=== PATIENT | female | born 1945 | race Caucasian/White ===

== ENCOUNTER 2017-12-27 12:57 | Inpatient (IN) | payer MEDICARE, MEDICAID ==
[~2017-12-27] VITALS: Ht 167.6 cm; Wt 63.6 kg
[2017-12-27] VITALS (21 sets, daily range): BP systolic 50–124; BP diastolic 41–77; PULSE 69–85; RESP 15–32; TEMP 95.9–99.1; O2SAT 76–98
[~2017-12-27 12:57] MED LIST: ALBU1AER INH; FLON0.053 EACH NARE; LISI-363 PO; MONT10TA2 PO; PRAV20 PO; PROP20TA24 PO; TIZA2TAB PO; TRAM50TA PO; WALKER STANDARD
[2017-12-27] MEDS ORDERED: VANCOMYCIN INJ 1,000 MG in SODIUM CHLOR 0.9% 250 ML INJ 250 ML IV ONE (13:15)
[2017-12-27] MEDS ORDERED: SODIUM CHLOR 0.9% 1000 ML INJ 1,000 ML IV SCH ×2 (13:15)
[2017-12-27] MEDS ORDERED: CEFEPIME INJ 2,000 MG in SODIUM CHLORIDE 0.9% INJ 100 ML IV ONE (13:15)
[2017-12-27 13:43] LABS: AUTOMATED NEUTROPHIL # 13.5 TH/MM3 (1.8-7.7); BASOPHIL % 0.1 % (0.0-2.0); EOSINOPHIL # 0.3 TH/MM3 (0-0.4); EOSINOPHIL % 1.5 % (0.0-4.0); HEMATOCRIT 27.1 % (35.0-46.0); HEMOGLOBIN 8.9 GM/DL (11.6-15.3); LYMPH % 8.1 % (9.0-44.0); LYMPHOCYTE # 1.3 TH/MM3 (1.0-4.8); MEAN CELL VOLUME 95.5 FL (80.0-100.0); MEAN CORPUSCULAR HEMOGLOBIN 31.4 PG (27.0-34.0); MEAN CORPUSCULAR HGB CONC 32.9 % (32.0-36.0); MEAN PLATELET VOLUME 8.1 FL (7.0-11.0); MONO % 7.7 % (0.0-8.0); MONOCYTE # 1.3 TH/MM3 (0-0.9); NEUT % 82.6 % (16.0-70.0); PLATELET COUNT 180 TH/MM3 (150-450); RED BLOOD COUNT 2.84 MIL/MM3 (4.00-5.30); RED CELL DISTRIBUTION WIDTH 18.3 % (11.6-17.2); WHITE BLOOD COUNT 16.4 TH/MM3 (4.0-11.0)
[2017-12-27 13:50] LABS: BILIRUBIN, URINE NEG (NEG); BLOOD, URINE SMALL (NEG); GLUCOSE,URINE 100 mg/dL (NEG); KETONE, URINE NEG (NEG); NITRITE,URINE NEG (NEG); PH, URINE 5.5 (5.0-8.5); URINE COLOR YELLOW (YELLW/STRAW); URINE LEUKOCYTE ESTERASE NEG (NEG)
[2017-12-27 13:51] LABS: INTERNATIONAL NORMALIZED RATIO 1.3 RATIO; PROTHROMBIN TIME - PATIENT 12.9 SEC (9.8-11.6)
[2017-12-27 13:52] LABS: HYALINE CAST, URINE 15 /lpf (RARE); MUCUS URINE FEW /lpf (OCC)
[2017-12-27 14:06] LABS: ALBUMIN 2.4 GM/DL (3.4-5.0); ALT (GPT) 800 U/L (10-53); AST (GOT) 451 U/L (15-37); BICARBONATE 20.3 MEQ/L (21.0-32.0); BLOOD UREA NITROGEN 115 MG/DL (7-18); CALCIUM 7.5 MG/DL (8.5-10.1); CHLORIDE 102 MEQ/L (98-107); CREATININE 2.42 MG/DL (0.50-1.00); GLOMERULAR FILTRATION RATE 20 ML/MIN (>89); GLUCOSE,RANDOM 92 MG/DL (74-106); SODIUM (NA) 135 MEQ/L (136-145)
[2017-12-27 14:17] LABS: ALKALINE PHOSPHATASE 118 U/L (45-117); TOTAL PROTEIN 4.9 GM/DL (6.4-8.2)
[2017-12-27 14:19] LABS: BANDS 39 % (0-6); CORRECTED NUCLEATED RBC 2 /100 WBC (0-0); LYMPHOCYTES 6 % (9-44); METAMYELOCYTES 3 % (0-1); MONOCYTES 4 % (0-8); MYELOCYTES 4 % (0-0); NEUTROPHIL # MANUAL DIFF 14.6 TH/MM3 (1.8-7.7); NUCLEATED RED BLOOD CELL 2 (0-0); POLYS (SEG NEUTROPHILS) 43 % (16-70); TOXIC GRANULATION 1+ (NORMAL); TOXIC VACUOLATION PRESENT (NONE SEEN)
[2017-12-27 14:20] LABS: ACANTHOCYTES 1+ (NORMAL); BURR CELLS 1+ (NORMAL); KERATOCYTES OCC (NORMAL)
[2017-12-27 14:21] LABS: HELMET CELLS OCC (NORMAL)
[2017-12-27] MEDS ORDERED: SODIUM CHLOR 0.9% 250 ML INJ 250 ML IV ONE (14:30)
--- NOTE | 2017-12-27 15:07 | RADRPT ---
EXAM DATE/TIME: 12/27/2017 14:49 [facility] COMPARISON: No previous studies available for comparison. INDICATIONS : Altered mental status RADIATION DOSE: 36.53 CTDIvol (mGy) MEDICAL HISTORY : Hypertension. SURGICAL HISTORY : None. ENCOUNTER: Initial ACUITY: 1 day PAIN SCALE: 0/10 LOCATION: cranial TECHNIQUE: Multiple contiguous axial images were obtained of the head. Using automated exposure control and adj ustment of the mA and/or kV according to patient size, radiation dose was kept as low as reasonably a chievable to obtain optimal diagnostic quality images. DICOM format image data is available electro nically for review and comparison. FINDINGS: The ventricles are symmetric and normal in appearance. No abnormal extra-axial fluid collections are identified. There is no evidence of intracranial hemorrhage or mass. There is nothing to suggest acut e infarction or acute injury. There is some soft tissue swelling and soft tissue air in the left temp oral region. No evidence of adjacent fracture. CONCLUSION: No acute intracranial process Maged Flores MD on December 27, 2017 at 15:02 Board Certified Radiologist. This report was verified electronically.
[2017-12-27] MEDS ORDERED: PANTOPRAZOLE INJ 80 MG in SODIUM CHLORIDE 0.9% INJ 35 ML IV ONE (15:35)
[2017-12-27] MEDS ORDERED: TERBUTALINE INJ 1 MG/ML AMP SQ PRN (16:30)
[2017-12-27] MEDS ORDERED: NOREPINEPHRINE-DEXTROSE DRIP 250 ML IV PRN (16:30)
[2017-12-27] MEDS ORDERED: SODIUM CHLOR 0.9% 1000 ML INJ 1,000 ML IV ONE (16:30)
--- NOTE | 2017-12-27 16:34 | RADRPT ---
EXAM DATE/TIME: 12/27/2017 15:19 [facility] COMPARISON: CHEST SINGLE AP, December 04, 2014, 11:07. INDICATIONS : Fever. MEDICAL HISTORY : None. SURGICAL HISTORY : None. ENCOUNTER: Initial ACUITY: 1 day PAIN SCORE: Non-responsive. LOCATION: Bilateral chest FINDINGS: Lungs are focally clear. No pleural effusion is evident. Cardiomediastinal contours are stable and sa tisfactory accounting for differences in technique and projection. There are healed posterolateral ri ght rib fractures. Degenerative changes in the spine. CONCLUSION: No acute disease Maged Flores MD on December 27, 2017 at 16:28 Board Certified Radiologist. This report was verified electronically.
--- NOTE | 2017-12-27 16:35 | RADRPT ---
EXAM DATE/TIME: 12/27/2017 14:54 [facility] COMPARISON: No previous studies available for comparison. INDICATIONS : Possible sepsis, black stool, altered mental status ORAL CONTRAST: No oral contrast ingested. RADIATION DOSE: 6.94 CTDIvol (mGy) MEDICAL HISTORY : Hypertension. SURGICAL HISTORY : None. ENCOUNTER: Initial ACUITY: 1 day PAIN SCALE: 0/10 LOCATION: abdomen TECHNIQUE: Volumetric scanning of the abdomen and pelvis was performed. Using automated exposure control and ad justment of the mA and/or kV according to patient size, radiation dose was kept as low as reasonably achievable to obtain optimal diagnostic quality images. DICOM format image data is available electro nically for review and comparison. FINDINGS: LOWER LUNGS: Lungs are hyperinflated. There is mild airspace disease in the right lower lobe. LIVER: Homogeneous density without lesion. There is no dilation of the biliary tree. The gallbladder is mi ldly distended. No calcified gallstones. SPLEEN: Normal size without lesion. PANCREAS: Within normal limits. KIDNEYS: Normal in size and shape. There is no mass, stone, or hydronephrosis. ADRENAL GLANDS: Within normal limits. VASCULAR: There is no aortic aneurysm. BOWEL/MESENTERY: Increased fluid is identified throughout the small intestine and proximal colon. There is poor wall d elineation with possible some mild thickening especially in the ascending colon. There is no evidence of pathologic distention or free air. Small amount of free fluid is identified especially within the pelvis. Large fecal bolus indicative of a fecal impaction is present. ABDOMINAL WALL: Within normal limits. RETROPERITONEUM: There is no lymphadenopathy. BLADDER: Bladder is decompressed. Vela catheter is in place. REPRODUCTIVE: Within normal limits. INGUINAL: There is no lymphadenopathy or hernia. MUSCULOSKELETAL: Multiple compression deformity are noted. There is a severe compression fracture of L1 and mild to mo derate compression fractures of L3 and L4. CONCLUSION: 1. Nonspecific intestinal pattern with increased fluid accumulation and possible mild wall thickening . There is no significant distention or evidence of free air. 2. Small amount of free fluid in the pelvis. 3. Mildly distended gallbladder. 4. Mild right basilar airspace disease. 5. No evidence of hydronephrosis, free air, mass or lymphadenopathy. Juice Ramirez MD on December 27, 2017 at 16:28 Board Certified Radiologist. This report was verified electronically.
[2017-12-27] MEDS ORDERED: NOREPINEPHRINE 4 MG/4 ML AMP ONE (16:38)
[2017-12-27] MEDS: PANTOPRAZOLE INJ 80 MG in SODIUM CHLORIDE 0.9% INJ 100 ML IV SCH ×2 (16:43→23:59)
[2017-12-27] MEDS ORDERED: CHLORHEXIDINE GLUCONATE 2 % 1 PACK (2 CLOTHS) TOP PRN (16:45)
[2017-12-27] MEDS ORDERED: MAGNESIUM HYDROXIDE SUSP 30 ML CUP PO PRN (16:45)
[2017-12-27] MEDS ORDERED: DEXTROSE 50% IN WATER 50 ML VIAL(D50) IV PUSH PRN (16:45)
[2017-12-27] MEDS ORDERED: LACTULOSE SYRUP 20 GM/30 ML CUP PO PRN (16:45)
[2017-12-27] MEDS ORDERED: NURSING INFORMATION XX SCH (16:45)
[2017-12-27] MEDS ORDERED: Vancomycin Consult Pharmacy 1 EA OTHER SCH (16:45)
[2017-12-27] MEDS ORDERED: BISACODYL 10 MG SUPP RECTAL PRN (16:45)
[2017-12-27] MEDS ORDERED: SENNOSIDES 8.6 MG TAB PO PRN (16:45)
--- NOTE | 2017-12-27 16:54 | PD ---
HPI Chief Complaint: Altered Mental Status Time Seen by Provider: 12:58 Travel History International Travel<30 days: No Contact w/Intl Traveler<30days: No Traveled to known affect area: No History of Present Illness HPI This is a 72-year-old female who presents to the emergency department with altered mental status. Her assisted living contacted EMS because they thought she was more confused than normal. When EMS arrived they found her to be disheveled and covered in feces. The patient says that she has been having pain in both of her feet for several weeks, constant, severe, worse with walking , improved with rest. She does not provide much other meaningful history. PFSH Past Medical History Hypertension: Yes Musculoskeletal: Yes (OSTEOPOROSIS. BACK INJURY 1989.) Menopausal: Yes Past Surgical History Surgical History: No Previous Surgery Social History Alcohol Use: Yes (DAILY) Tobacco Use: Yes (1-2 PPD) Substance Use: No Allergies-Medications (Allergen,Severity, Reaction): Coded Allergies: Opioids - Morphine Analogues (Unverified Allergy, Severe, 03/23/17) Opioids-Meperidine and Related (Unverified Allergy, Severe, 03/23/17) Opioids-Methadone and Related (Unverified Allergy, Severe, 03/23/17) morphine (Unverified Allergy, Severe, ANNAPHYLACTIC, 03/23/17) Reported Meds & Prescriptions Reported Meds & Active Scripts Active Walker Standard (Device) Device 1 Unit Reported Pravastatin Sodium 20 Mg Tab 20 Mg PO HS Proair Hfa (Albuterol Sulfate) 8.5 Gm Aero 2 Puff INH QID PRN * SHAKE WELL BEFORE USE * Zanaflex 2 mg (Tizanidine HCl) 2 Mg Tab 2 Mg PO TID Singulair (Montelukast Sodium) 10 Mg Tab 10 Mg PO DAILY Tramadol Hcl (Tramadol HCl) 50 Mg Tab 50 Mg PO TID PRN Lisinopril 20 mg (Lisinopril) 20 Mg Tab 20 Mg PO BID Inderal (Propranolol HCl) 20 Mg Tab 20 Mg PO BID Flonase (Fluticasone Propionate) 0.05 % Naspr 1 Spr EACH NARE DAILY 1 SPRAY EACH NOSTRIL Review of Systems ROS Limitations: Altered Mental Status Physical Exam Narrative GENERAL:Disheveled, has feces on her torso and near her mouth. SKIN: Dark purplish discoloration of both feet left worse than right, HEAD: Atraumatic. Normocephalic. EYES: Pupils equal and round. No injection or drainage. ENT: Dry mucous membranes NECK: Trachea midline. CARDIOVASCULAR: Regular rate and rhythm. No murmur appreciated. feet are cool to the touch with no palpable pulses but capillary refill is preserved RESPIRATORY: Clear to auscultation. Breath sounds equal bilaterally. GASTROINTESTINAL: Abdomen soft, non-tender, nondistended. MUSCULOSKELETAL: No obvious deformities. NEUROLOGICAL: confused, but able to name the date and say her name. No obvious cranial nerve deficits. Moving all extremities. Data Data Last Documented VS Vital Signs Date Time Temp Pulse Resp B/P (MAP) Pulse Ox O2 Delivery O2 Flow Rate FiO2 12/27/17 16:25 77 18 78/54 (62) 98 Room Air 12/27/17 15:37 97.3 Orders Orders Complete Blood Count With Diff (12/27/17 13:06) Comprehensive Metabolic Panel (12/27/17 13:06) Prothrombin Time / Inr (Pt) (12/27/17 13:06) Act Partial Throm Time (Ptt) (12/27/17 13:06) Lactic Acid (12/27/17 13:06) Creatine Kinase (Cpk) (12/27/17 13:06) Urinalysis - C+S If Indicated (12/27/17 13:06) Cath For Specimen (12/27/17 13:06) Ct Brain W/O Iv Contrast(Rout) (12/27/17 ) Electrocardiogram (12/27/17 ) Sodium Chlor 0.9% 1000 Ml Inj (Ns 1000 M (12/27/17 13:15) Sodium Chlor 0.9% 1000 Ml Inj (Ns 1000 M (12/27/17 13:15) Lactic Acid Sepsis Protocol (12/27/17 13:11) Blood Culture (12/27/17 13:11) Vancomycin Inj (Vancomycin Inj) (12/27/17 13:15) Cefepime Inj (Maxipime Inj) (12/27/17 13:15) Insert Temp Sensing Vela Cath (12/27/17 13:25) CKMB (12/27/17 13:20) CKMB% (12/27/17 13:20) Type And Screen (12/27/17 14:20) Red Blood Cells (Rbc) (12/27/17 14:20) Blood Product Administration (12/27/17 14:20) Sodium Chlor 0.9% 250 Ml Inj (Ns 250 Ml (12/27/17 14:30) Sodium Chloride 0.9... W/Pantoprazole In (12/27/17 15:35) Sodium Chloride 0.9... W/Pantoprazole In (12/27/17 15:35) Chest, Single Ap (12/27/17 ) Ct Abd/Pel W/O Iv Contrast (12/27/17 ) C Diff Toxin Pcr (12/27/17 14:40) Norepinephrine-Dextrose Drip (Levophed-D (12/27/17 16:30) Terbutaline Inj (Brethine Inj) (12/27/17 16:30) Lactic Acid Sepsis Protocol (12/27/17 16:25) Sodium Chlor 0.9% 1000 Ml Inj (Ns 1000 M (12/27/17 16:30) Admit Order (Ed Use Only) (12/27/17 16:37) Us Leg Venous Doppler Bilat (12/27/17 ) Norepinephrine Inj (Levophed Inj) (12/27/17 16:38) Labs Laboratory Tests Test 12/27/17 13:20 12/27/17 13:35 White Blood Count 16.4 TH/MM3 Red Blood Count 2.84 MIL/MM3 Hemoglobin 8.9 GM/DL Hematocrit 27.1 % Mean Corpuscular Volume 95.5 FL Mean Corpuscular Hemoglobin 31.4 PG Mean Corpuscular Hemoglobin Concent 32.9 % Red Cell Distribution Width 18.3 % Platelet Count 180 TH/MM3 Mean Platelet Volume 8.1 FL Neutrophils (%) (Auto) 82.6 % Lymphocytes (%) (Auto) 8.1 % Monocytes (%) (Auto) 7.7 % Eosinophils (%) (Auto) 1.5 % Basophils (%) (Auto) 0.1 % Neutrophils # (Auto) 13.5 TH/MM3 Lymphocytes # (Auto) 1.3 TH/MM3 Monocytes # (Auto) 1.3 TH/MM3 Eosinophils # (Auto) 0.3 TH/MM3 Basophils # (Auto) 0.0 TH/MM3 CBC Comment AUTO DIFF Differential Total Cells Counted 100 Neutrophils % (Manual) 43 % Band Neutrophils % 39 % Lymphocytes % 6 % Monocytes % 4 % Eosinophils % 1 % Neutrophils # (Manual) 14.6 TH/MM3 Metamyelocytes 3 % Myelocytes 4 % Nucleated Red Blood Cells 2 /100 WBC Differential Comment FINAL DIFF MANUAL Toxic Granulation 1+ Toxic Vacuolation PRESENT Platelet Estimate NORMAL Platelet Morphology Comment NORMAL Polychromasia 2.0 % Helmet Cells OCC [place] Cells 1+ Acanthocytes 1+ Keratocytes OCC Prothrombin Time 12.9 SEC Prothromb Time International Ratio 1.3 RATIO Activated Partial Thromboplast Time 24.6 SEC Blood Urea Nitrogen 115 MG/DL Creatinine 2.42 MG/DL Random Glucose 92 MG/DL Total Protein 4.9 GM/DL Albumin 2.4 GM/DL Calcium Level 7.5 MG/DL Alkaline Phosphatase 118 U/L Aspartate Amino Transf (AST/SGOT) 451 U/L Alanine Aminotransferase (ALT/SGPT) 800 U/L Total Bilirubin 1.0 MG/DL Sodium Level 135 MEQ/L Potassium Level 4.8 MEQ/L Chloride Level 102 MEQ/L Carbon Dioxide Level 20.3 MEQ/L Anion Gap 13 MEQ/L Estimat Glomerular Filtration Rate 20 ML/MIN Lactic Acid Level 1.9 mmol/L Total Creatine Kinase 1259 U/L Creatine Kinase MB 49.1 NG/ML Creatine Kinase MB % 3.9 % Lipase 83 U/L Urine Color YELLOW Urine Turbidity CLEAR Urine pH 5.5 Urine Specific [place] 1.016 Urine Protein 30 mg/dL Urine Glucose (UA) 100 mg/dL Urine Ketones NEG mg/dL Urine Occult Blood SMALL Urine Nitrite NEG Urine Bilirubin NEG Urine Urobilinogen 0.2 MG/DL Urine Leukocyte Esterase NEG Urine RBC LESS THAN 1 /hpf Urine WBC LESS THAN 1 /hpf Urine Hyaline Casts 15 /lpf Urine Mucus FEW /lpf Microscopic Urinalysis Comment CATH-CULT NOT IND MDM Medical Decision Making Medical Screen Exam Complete: Yes Emergency Medical Condition: Yes Interpretation(s) Afebrile, no tachycardia, hypertensive Leukocytosis 39% bands Hemoglobin is 8.9 Transaminitis CK is 1200 Last [address] 12/27/17 0000 Signed Impressions: Service Date/Time: Wednesday, December 27, 2017 14:49 - CONCLUSION: No acute intracranial process Maged Flores MD Chest X-Ray 12/27/17 0000 Signed Impressions: Service Date/Time: Wednesday, December 27, 2017 15:19 - CONCLUSION: No acute disease Maged Flores MD Abdomen/Pelvis CT 12/27/17 0000 Signed Impressions: Service Date/Time: Wednesday, December 27, 2017 14:54 - CONCLUSION: 1. Nonspecific intestinal pattern with increased fluid accumulation and possible mild wall thickening. There is no significant distention or evidence of free air. 2. Small amount of free fluid in the pelvis. 3. Mildly distended gallbladder. 4. Mild right basilar airspace disease. 5. No evidence of hydronephrosis, free air, mass or lymphadenopathy. Juice Ramirez MD Differential Diagnosis Pneumonia, urinary tract infection, colitis, gastroenteritis, C. difficile, hemorrhagic shock Narrative Course This is a 72-year-old female who presents to the emergency department hypotensive and altered. She is confused on exam and has evidence of is around her mouth and on her torso. She was placed on a monitor and an IV was established. She was hypotensive. She was given a 2 L bolus of IV fluids, cultures were obtained and broad-spectrum antibiotics were initiated. Patient was Hemoccult positive. She subsequently dropped her blood pressure a second time so she was given 2 units of blood and started on pantoprazole. I suspect the patient's source of sepsis is colitis. CT demonstrates some evidence of bowel thickening. Vasopressors were ordered but her blood pressure responded to blood and we did not need to initiate them in the emergency department. Patient will be admitted to the intensive care unit for further management. Critical Care Narrative Aggregate critical care time was 50 minutes. Time to perform other separately billable procedures was not included in the critical care time. My time did not include minutes spent treating any other patients simultaneously or on activities that did not directly contribute to the patient's treatment. The services I provided to this patient were to treat and/or prevent clinically significant deterioration that could result in: Disability, I provided critical care services requiring my management, as noted below: Chart data review, documentation time, medication orders and management, vital sign assessments/reviewing monitor data, ordering and reviewing lab tests, ordering and interpreting/reviewing x-rays and diagnostic studies, care of the patient and discussion of the patient with the admitting physicians. Physician Communication Physician Communication Discussed with Dr. Silva Diagnosis Primary Impression: Septic shock Additional Impression: GI bleed Qualified Codes: K92.2 - Gastrointestinal hemorrhage, unspecified Admitting Information Admitting Physician Requests: Admit Christina Siddiqui MD December 27, 2017 16:54
[2017-12-27] MEDS: INSULIN NovoLIN REGULAR SUPPLEMENTAL SCALE SQ SCH ×2 (17:40→23:42)
--- NOTE | 2017-12-27 17:50 | RADRPT ---
EXAM DATE/TIME: 12/27/2017 17:23 [facility] COMPARISON: No previous studies available for comparison. INDICATIONS : Bilateral leg swelling. MEDICAL HISTORY : Hypertension. Claustrophobia. Back injury. SURGICAL HISTORY : None. ENCOUNTER: Initial ACUITY: 1 day PAIN SCORE: 1/10 LOCATION: Bilateral legs. TECHNIQUE: Venous ultrasound of the left and right leg was performed from the inguinal ligament to the proximal calf. Real-time, color Doppler and spectral tracing, compression and augmentation techniques were us ed. FINDINGS: RIGHT LEG: There is normal compressibility of the deep venous system from the inguinal region to the proximal ca lf. No echogenic clot is seen in the lumen of the common femoral, femoral, popliteal, and posterior tibial veins. There is a normal response of the venous system to proximal and distal augmentation an d respiration. LEFT LEG: There is normal compressibility of the deep venous system from the inguinal region to the proximal ca lf. No echogenic clot is seen in the lumen of the common femoral, femoral, popliteal, and posterior tibial veins. There is a normal response of the venous system to proximal and distal augmentation an d respiration. CONCLUSION: Normal examination. Maged Flores MD on December 27, 2017 at 17:48 Board Certified Radiologist. This report was verified electronically.
[2017-12-27] MEDS: LACTATED RINGER'S 1000 ML INJ 1,000 ML IV SCH (18:15)
[2017-12-27] MEDS: metroNIDAZOLE 500 MG INJ 100 ML IV SCH (18:28)
--- NOTE | 2017-12-27 19:00 | HHI.HP ---
[facility] Service Critical Care Medicine Primary Care Physician Unknown Admission Diagnosis septic shock Diagnosis: Chief Complaint: altered mental status Travel History International Travel<30 Days: No Contact w/Intl Traveler <30 Da: No Traveled to Known Affected Are: No History of Present Illness This is a 72-year-old female who presents from an assisted living center for altered mental status. Per her assisted living facility, she is more confused than her normal baseline. Per medical records, when EMS arrived she was disheveled and covered in feces. On my evaluation, the patient is quite conversant and pleasant, but very confused. She is only oriented to person. Is very difficult to get a history from her, as she continues to talk about eating chocolate Lava cake. Repeated attempts to elicit a history of present illness have been unsuccessful to obtain a clear recent medical history. She denies chest pain, shortness of breath, abdominal pain, nausea, vomiting. She does endorse being hungry. She denies fever or chills. Per the emergency room physician note she apparently endorsed pain in both of her feet times several weeks, but she does not complain of this when I asked. Review systems is essentially unobtainable due to her confusion. In the emergency department she was hypotensive and required 3 L crystalloid resuscitation to improve her hemodynamics. Laboratory evidence is significant for a leukocytosis with a white count of 16,000, hemoglobin 8.9, differential is significant for toxic vacuolization, toxic granulation, 39% band neutrophils. BMP demonstrates a sodium of 135, bicarb of 20, creatinine of 2.42 with an unknown baseline, AST ALT of 453 1/800, alk phos of 118, CK of 1259, and albumin of 2.4. Her lactate is 1.9. CT abdomen pelvis does not demonstrate any significant abnormalities other than generalized bowel wall edema as well as significant stool in the rectal vault. Critical care medicine is consulted to evaluate her apparent multiorgan system dysfunction in the setting of presumed severe sepsis with endorgan dysfunction secondary to an unknown primary source. Review of Systems ROS Limitations: Clinical Condition, Altered Mental Status, Poor Historian Respiratory: DENIES: Shortness of breath Cardiovascular: DENIES: Chest pain Gastrointestinal: DENIES: Abdominal pain, Constipation, Diarrhea, Nausea, Vomiting Neurologic: DENIES: Headache Past Family Social History Allergies: Coded Allergies: Opioids - Morphine Analogues (Unverified Allergy, Severe, 03/23/17) Opioids-Meperidine and Related (Unverified Allergy, Severe, 03/23/17) Opioids-Methadone and Related (Unverified Allergy, Severe, 03/23/17) morphine (Unverified Allergy, Severe, ANNAPHYLACTIC, 03/23/17) Past Medical History Hypertension Osteoporosis Back injury 1989 Postmenopausal Past Surgical History No prior surgeries Reported Medications Pravastatin Sodium 20 Mg Tab 20 Mg PO HS Proair Hfa (Albuterol Sulfate) 8.5 Gm Aero 2 Puff INH QID PRN * SHAKE WELL BEFORE USE * Zanaflex 2 mg (Tizanidine HCl) 2 Mg Tab 2 Mg PO TID Singulair (Montelukast Sodium) 10 Mg Tab 10 Mg PO DAILY Tramadol Hcl (Tramadol HCl) 50 Mg Tab 50 Mg PO TID PRN Lisinopril 20 mg (Lisinopril) 20 Mg Tab 20 Mg PO BID Inderal (Propranolol HCl) 20 Mg Tab 20 Mg PO BID Flonase (Fluticasone Propionate) 0.05 % Naspr 1 Spr EACH NARE DAILY 1 SPRAY EACH NOSTRIL Active Ordered Medications See MAR Family History Reviewed and found to be noncontributory to her acute illness Social History 1-2 pack per day smoker and daily EtOH use. Physical Exam Vital Signs Vital Signs Date Time Temp Pulse Resp B/P (MAP) Pulse Ox O2 Delivery O2 Flow Rate FiO2 12/27/17 18:15 12/27/17 17:51 99.1 81 17 93/61 (72) 98 Room Air 12/27/17 17:28 99.1 80 17 90/55 (67) 98 Room Air 12/27/17 16:25 77 18 78/54 (62) 98 Room Air 12/27/17 15:37 97.3 75 16 102/55 (71) 12/27/17 15:08 97.2 76 17 100/59 (73) 12/27/17 14:39 97.2 74 18 78/49 12/27/17 14:37 97.2 74 18 78/49 12/27/17 14:30 77 20 79/41 (54) 12/27/17 14:02 97.2 81 16 101/59 (73) 12/27/17 13:48 96.8 72 16 105/51 (69) 12/27/17 13:39 95.9 72 15 78/50 (59) 12/27/17 13:15 96.3 69 20 50/ Physical Exam GENERAL: Frail elderly female, sitting up in bed, confused HEENT: Normocephalic. Atraumatic. Pupils equal, round, reactive, conjugate. Mucous membranes are dry NECK: Trachea is midline. There is no JVD. CHEST: Equal chest rise. Room air. CARDIOVASCULAR: Normal rate, regular rhythm appears sinus by telemetry. ABDOMEN: Soft, nontender, nondistended. No guarding. No hepatosplenomegaly. MUSCULOSKELETAL: Pulses 2+. No peripheral edema. Genitourinary: Vela in place with clear yellow urine NEUROLOGICAL: GCS 14. CAM +. RASS 0. Slightly confused. Oriented to person. Very conversant, but difficult to get her to answer straightforward questions. Follows commands 4. Laboratory Laboratory Tests Test 12/27/17 13:20 12/27/17 13:35 White Blood Count 16.4 Red Blood Count 2.84 Hemoglobin 8.9 Hematocrit 27.1 Mean Corpuscular Volume 95.5 Mean Corpuscular Hemoglobin 31.4 Mean Corpuscular Hemoglobin Concent 32.9 Red Cell Distribution Width 18.3 Platelet Count 180 Mean Platelet Volume 8.1 Neutrophils (%) (Auto) 82.6 Lymphocytes (%) (Auto) 8.1 Monocytes (%) (Auto) 7.7 Eosinophils (%) (Auto) 1.5 Basophils (%) (Auto) 0.1 Neutrophils # (Auto) 13.5 Lymphocytes # (Auto) 1.3 Monocytes # (Auto) 1.3 Eosinophils # (Auto) 0.3 Basophils # (Auto) 0.0 CBC Comment AUTO DIFF Differential Total Cells Counted 100 Neutrophils % (Manual) 43 Band Neutrophils % 39 Lymphocytes % 6 Monocytes % 4 Eosinophils % 1 Neutrophils # (Manual) 14.6 Metamyelocytes 3 Myelocytes 4 Nucleated Red Blood Cells 2 Differential Comment FINAL DIFF MANUAL Toxic Granulation 1+ Toxic Vacuolation PRESENT Platelet Estimate NORMAL Platelet Morphology Comment NORMAL Polychromasia 2.0 Helmet Cells OCC [place] Cells 1+ Acanthocytes 1+ Keratocytes OCC Prothrombin Time 12.9 Prothromb Time International Ratio 1.3 Activated Partial Thromboplast Time 24.6 Blood Urea Nitrogen 115 Creatinine 2.42 Random Glucose 92 Total Protein 4.9 Albumin 2.4 Calcium Level 7.5 Alkaline Phosphatase 118 Aspartate Amino Transf (AST/SGOT) 451 Alanine Aminotransferase (ALT/SGPT) 800 Total Bilirubin 1.0 Sodium Level 135 Potassium Level 4.8 Chloride Level 102 Carbon Dioxide Level 20.3 Anion Gap 13 Estimat Glomerular Filtration Rate 20 Lactic Acid Level 1.9 Total Creatine Kinase 1259 Creatine Kinase MB 49.1 Creatine Kinase MB % 3.9 Lipase 83 Urine Color YELLOW Urine Turbidity CLEAR Urine pH 5.5 Urine Specific [place] 1.016 Urine Protein 30 Urine Glucose (UA) 100 Urine Ketones NEG Urine Occult Blood SMALL Urine Nitrite NEG Urine Bilirubin NEG Urine Urobilinogen 0.2 Urine Leukocyte Esterase NEG Urine RBC LESS THAN 1 Urine WBC LESS THAN 1 Urine Hyaline Casts 15 Urine Mucus FEW Microscopic Urinalysis Comment CATH-CULT NOT IND Date/Time Source Procedure Growth Status 12/27/17 13:25 Blood Peripheral Aerobic Blood Culture Pending Received 12/27/17 13:25 Blood Peripheral Anaerobic Blood Culture Pending Received Result Diagram: 12/27/17 1320 12/27/17 1320 Imaging Last Impressions Lower Extremity Ultrasound 12/27/17 0000 Signed Impressions: Service Date/Time: Wednesday, December 27, 2017 17:23 - CONCLUSION: Normal examination. Maged Flores MD Head CT 12/27/17 0000 Signed Impressions: Service Date/Time: Wednesday, December 27, 2017 14:49 - CONCLUSION: No acute intracranial process Maged Flores MD Chest X-Ray 12/27/17 0000 Signed Impressions: Service Date/Time: Wednesday, December 27, 2017 15:19 - CONCLUSION: No acute disease Maged Flores MD Abdomen/Pelvis CT 12/27/17 0000 Signed Impressions: Service Date/Time: Wednesday, December 27, 2017 14:54 - CONCLUSION: 1. Nonspecific intestinal pattern with increased fluid accumulation and possible mild wall thickening. There is no significant distention or evidence of free air. 2. Small amount of free fluid in the pelvis. 3. Mildly distended gallbladder. 4. Mild right basilar airspace disease. 5. No evidence of hydronephrosis, free air, mass or lymphadenopathy. Juice Ramirez MD Septic Shock Reassessment Septic shock perfusion: reassessment completed Caprini VTE Risk Assessment Caprini VTE Risk Assessment: Mod/High Risk (score >= 2) Caprini Risk Assessment Model Point Value = 1 Point Value = 2 Point Value = 3 Point Value = 5 Age 41-60 Minor surgery BMI > 25 kg/m2 Swollen legs Varicose veins or History of unexplained or recurrent spontaneous Oral contraceptives or hormone replacement Sepsis (< 1 month) Serious lung disease, including pneumonia (< 1 month) Abnormal pulmonary function Acute myocardial infarction Congestive heart failure (< 1 month) History of inflammatory bowel disease Medical patient at bed rest Age 61-74 Arthroscopic surgery Major open surgery (> 45 min) Laparoscopic surgery (> 45 min) Malignancy Confined to bed (> 72 hours) Immobilizing plaster cast Central venous access Age >= 75 History of VTE Family history of VTE Factor V Leiden Prothrombin [id number] Lupus anticoagulant Anticardiolipin antibodies Elevated serum homocysteine Heparin-induced thrombocytopenia Other congenital or acquired thrombophilia Stroke (< 1 month) Elective arthroplasty Hip, pelvis, or leg fracture Acute spinal cord injury (< 1 month) Prophylaxis Regimen Total Risk Factor Score Risk Level Prophylaxis Regimen 0-1 Low Early ambulation 2 Moderate Order ONE of the following: *Sequential Compression Device (SCD) *Heparin 5000 units SQ BID 3-4 Higher Order ONE of the following medications: *Heparin 5000 units SQ TID *Enoxaparin/Lovenox 40 mg SQ daily (WT < 150 kg, CrCl > 30 mL/min) *Enoxaparin/Lovenox 30 mg SQ daily (WT < 150 kg, CrCl > 10-29 mL/min) *Enoxaparin/Lovenox 30 mg SQ BID (WT < 150 kg, CrCl > 30 mL/min) AND/OR *Sequential Compression Device (SCD) 5 or more Highest Order ONE of the following medications: *Heparin 5000 units SQ TID (Preferred with Epidurals) *Enoxaparin/Lovenox 40 mg SQ daily (WT < 150 kg, CrCl > 30 mL/min) *Enoxaparin/Lovenox 30 mg SQ daily (WT < 150 kg, CrCl > 10-29 mL/min) *Enoxaparin/Lovenox 30 mg SQ BID (WT < 150 kg, CrCl > 30 mL/min) AND *Sequential Compression Device (SCD) Assessment and Plan Assessment and Plan Assessment: 72-year-old female who presents with symptoms highly concerning for severe sepsis with endorgan dysfunction including acute metabolic encephalopathy , acute kidney injury, acute liver dysfunction. Unclear primary source. She is on room air without cough, so pneumonic process is unlikely. C. difficile colitis is certainly a possibility, how ever she has not been on recent antibiotics that we know of. We will obtain pancultures and start her empirically on vancomycin, cefepime, Flagyl IV. IV fluids. Trend her labs and endorgan dysfunction. Despite her relatively stable hemodynamic to this time, she remains critically ill with multiple organ systems which are dysfunctional and life-threatening in this 72-year-old female with comorbid conditions. Admit to ICU. Plan by systems: Neurologic: Acute metabolic encephalopathy Frequent neurochecks Avoid long-acting sedatives Respiratory: Aggressive pulmonary toilet Nasal cannula oxygen if needed for goal SPO2 greater than 92% Physical therapy consultation Cardiovascular: Severe sepsis Normal saline maintenance fluids Telemetry Trend lactates Renal: Acute kidney injury Rhabdomyolysis Place Vela in monitor urine output closely Trend BNP Maintenance fluids Trend CK -- Strict I/Os FEN/GI: Severe acute protein calorie malnutrition Acute intravascular volume depletion Hyperkalemia Shock liver Acute metabolic acidosis Hyponatremia N.p.o. for now. Anemia of unclear etiology could be GI bleeding, although the patient has no symptoms of this. We will continue the patient on a Protonix drip and trend her H&H. Could consider advancing her diet if her H&H is stable Trend LFTs Daily BMP Hyperkalemia likely secondary to acidosis. We will trend with daily BMP. EKG does not show changes Maintenance fluids as above Heme/ID: Anemia of unclear etiology Severe sepsis-present on admission and unclear etiology Leukocytosis Bandemia Vancomycin with pharmacy consultation Cefepime 1 g IV every 8 hours given renal function Flagyl 500 mg IV every 6 Send C. difficile sample Blood cultures Urine culture Sputum culture De-escalate antibiotic therapy based on culture data If patient truly does have C. difficile colitis will add p.o. vancomycin, however patient does not have a history of diarrhea and is not having diarrhea here. Endocrine: Hyperglycemia of critical illness -- SSI Prophylaxis: GI Prophylaxis Protonix drip. Will de-escalate to IV PPI if hemoglobin remains stable DVT Prophylaxis -- SCDs Given unclear etiology of anemia, will hold off on pharmacologic DVT prophylaxis at this time. If hemoglobin remains stable we will institute DVT prophylaxis Lines: Peripheral IVs Vela Hemodynamics have responded to IV fluids and we will hold off on central venous access at this time Dispo: Admit to ICU. This patient remains critically ill with one or more organ systems which are or may become a threat to life. I have spent in excess of 31 minutes discontinuously in the care and management of this patient. This time is exclusive of procedures, and includes, but is not limited to, evaluation of the patient, review of the medical record, discussions with family, consultants, nursing staff, or respiratory therapy, and documentation in the medical record. Shaheed Vee MD December 27, 2017 19:00
[2017-12-27] MEDS: DOCUSATE SODIUM 50 MG/SENNA 8.6 MG TAB PO SCH (21:00)
[2017-12-27] MEDS ORDERED: VANCOMYCIN 500 MG/NS 100 ML IV ONE ×2 (22:00)
[2017-12-27] MEDS: CEFEPIME INJ 1,000 MG in SODIUM CHLORIDE 0.9% INJ 100 ML IV SCH (22:07)
[2017-12-27 23:01] LABS: HEMATOCRIT 35.7 % (35.0-46.0); HEMOGLOBIN 11.9 GM/DL (11.6-15.3)
[2017-12-27 23:20] LABS: IRON (FE) 109 MCG/DL (50-170)
[2017-12-27 23:33] LABS: % SATURATION IRON PROFILE 52.6 % (20-50); FERRITIN 768 NG/ML (8-252); TOTAL IRON BINDING CAPACITY 207 MCG/DL (250-450)
[2017-12-28] VITALS (30 sets, daily range): BP systolic 94–162; BP diastolic 52–99; PULSE 84–102; RESP 15–40; TEMP 98.3–99.6; O2SAT 80–98
[2017-12-28] MEDS: LACTATED RINGER'S 1000 ML INJ 1,000 ML IV SCH ×3 (03:00→23:00)
[2017-12-28] MEDS: CHLORHEXIDINE GLUCONATE 2 % 1 PACK (2 CLOTHS) TOP SCH (03:16)
[2017-12-28] MEDS: metroNIDAZOLE 500 MG INJ 100 ML IV SCH ×4 (05:45→17:37)
[2017-12-28] MEDS: CEFEPIME INJ 1,000 MG in SODIUM CHLORIDE 0.9% INJ 100 ML IV SCH ×3 (05:45→20:09)
[2017-12-28] MEDS: INSULIN NovoLIN REGULAR SUPPLEMENTAL SCALE SQ SCH ×3 (05:46→18:00)
[2017-12-28 07:15] LABS: HEMATOCRIT 34.7 % (35.0-46.0); HEMOGLOBIN 11.9 GM/DL (11.6-15.3); MEAN CELL VOLUME 89.9 FL (80.0-100.0); MEAN CORPUSCULAR HEMOGLOBIN 30.7 PG (27.0-34.0); MEAN CORPUSCULAR HGB CONC 34.2 % (32.0-36.0); MEAN PLATELET VOLUME 7.2 FL (7.0-11.0); PLATELET COUNT 130 TH/MM3 (150-450); RED BLOOD COUNT 3.86 MIL/MM3 (4.00-5.30); RED CELL DISTRIBUTION WIDTH 17.7 % (11.6-17.2)
[2017-12-28 07:27] LABS: INTERNATIONAL NORMALIZED RATIO 1.3 RATIO; PROTHROMBIN TIME - PATIENT 12.7 SEC (9.8-11.6)
[2017-12-28 07:59] LABS: ALBUMIN 2.2 GM/DL (3.4-5.0); BICARBONATE 18.7 MEQ/L (21.0-32.0); CALCIUM 7.4 MG/DL (8.5-10.1); CREATININE 1.7 MG/DL (0.50-1.00); PHOSPHORUS 2.6 MG/DL (2.5-4.9)
[2017-12-28 08:35] LABS: CALCIUM-PROTEIN CORRECTED 8.6 MG/DL (8.5-10.1)
[2017-12-28 08:36] LABS: TOTAL BILIRUBIN ADULT 1.7 MG/DL (0.2-1.0)
[2017-12-28] MEDS: DOCUSATE SODIUM 50 MG/SENNA 8.6 MG TAB PO SCH ×2 (09:00→20:09)
--- NOTE | 2017-12-28 11:41 | HHI.CCPN ---
Subjective Remarks/Hospital Course This is a 72-year-old female who presents from an assisted living center for altered mental status. Per her assisted living facility, she is more confused than her normal baseline. Per medical records, when EMS arrived she was disheveled and covered in feces. On my evaluation, the patient is quite conversant and pleasant, but very confused. She is only oriented to person. Is very difficult to get a history from her, as she continues to talk about eating chocolate Lava cake. Repeated attempts to elicit a history of present illness have been unsuccessful to obtain a clear recent medical history. She denies chest pain, shortness of breath, abdominal pain, nausea, vomiting. She does endorse being hungry. She denies fever or chills. Per the emergency room physician note she apparently endorsed pain in both of her feet times several weeks, but she does not complain of this when I asked. Review systems is essentially unobtainable due to her confusion. In the emergency department she was hypotensive and required 3 L crystalloid resuscitation to improve her hemodynamics. Laboratory evidence is significant for a leukocytosis with a white count of 16,000, hemoglobin 8.9, differential is significant for toxic vacuolization, toxic granulation, 39% band neutrophils. BMP demonstrates a sodium of 135, bicarb of 20, creatinine of 2.42 with an unknown baseline, AST ALT of 453 1/800, alk phos of 118, CK of 1259, and albumin of 2.4. Her lactate is 1.9. CT abdomen pelvis does not demonstrate any significant abnormalities other than generalized bowel wall edema as well as significant stool in the rectal vault. Critical care medicine is consulted to evaluate her apparent multiorgan system dysfunction in the setting of presumed severe sepsis with endorgan dysfunction secondary to an unknown primary source. SUBJ 12/28: Remains hemodynamically stable. White count slightly improved 16.4- 15, BUN improved from 115 to 87, creat 2.42 to 1.78. Alert awake oriented to person. Cultures remain negative to date. Urine output approximately 1.4 L in 24 hours. Liver enzymes trending down Objective Vital Signs Date Time Temp Pulse Resp B/P (MAP) Pulse Ox O2 Delivery O2 Flow Rate FiO2 12/28/17 10:00 99.4 97 22 162/93 (116) 85 12/27/17 17:51 Room Air Intake and Output 12/28/17 12/28/17 12/29/17 08:00 16:00 00:00 Intake Total 1797 ml 240 ml Output Total 605 ml 125 ml Balance 1192 ml 115 ml Result Diagram: 12/28/17 0651 12/28/17 0651 Imaging Last Impressions Lower Extremity Ultrasound 12/27/17 0000 Signed Impressions: Service Date/Time: Wednesday, December 27, 2017 17:23 - CONCLUSION: Normal examination. Maged Flores MD Head CT 12/27/17 0000 Signed Impressions: Service Date/Time: Wednesday, December 27, 2017 14:49 - CONCLUSION: No acute intracranial process Maged Flores MD Chest X-Ray 12/27/17 0000 Signed Impressions: Service Date/Time: Wednesday, December 27, 2017 15:19 - CONCLUSION: No acute disease Maged Flores MD Abdomen/Pelvis CT 12/27/17 0000 Signed Impressions: Service Date/Time: Wednesday, December 27, 2017 14:54 - CONCLUSION: 1. Nonspecific intestinal pattern with increased fluid accumulation and possible mild wall thickening. There is no significant distention or evidence of free air. 2. Small amount of free fluid in the pelvis. 3. Mildly distended gallbladder. 4. Mild right basilar airspace disease. 5. No evidence of hydronephrosis, free air, mass or lymphadenopathy. Juice Ramirez MD Objective Remarks GENERAL: Frail elderly female, sitting up in bed, no distress HEENT: Normocephalic. Atraumatic. Pupils equal, round, reactive, conjugate. Mucous membranes are dry NECK: Trachea is midline. There is no JVD. CHEST: Equal chest rise. Room air. CARDIOVASCULAR: Normal rate, regular rhythm appears sinus by telemetry. ABDOMEN: Soft, nontender, nondistended. No guarding. No hepatosplenomegaly. MUSCULOSKELETAL: Pulses 2+. No peripheral edema. Genitourinary: Vela in place with clear yellow urine NEUROLOGICAL: GCS 14. RASS 0. Slightly confused. Oriented to person. conversant, but difficult to get her to answer straightforward questions. Follows commands 4. A/P Assessment and Plan Assessment: 72-year-old female who presents with symptoms highly concerning for severe sepsis with endorgan dysfunction including acute metabolic encephalopathy , acute kidney injury, acute liver dysfunction. Unclear primary source. C. difficile colitis is certainly a possibility, how ever she has not been on recent antibiotics that we know of. We will obtain pancultures and start her empirically on vancomycin, cefepime, Flagyl IV. IV fluids. Trend her labs and endorgan dysfunction. Despite her relatively stable hemodynamic to this time, she remains critically ill with multiple organ systems which are dysfunctional and life-threatening in this 72-year-old female with comorbid conditions. Admit to ICU. Plan by systems: Neurologic: Acute metabolic encephalopathy Frequent neurochecks Avoid long-acting sedatives Respiratory: Aggressive pulmonary toilet Nasal cannula oxygen if needed for goal SPO2 greater than 92% Cardiovascular: Severe sepsis Normal saline maintenance fluids, monitor I/O Telemetry Trend lactates Renal: Acute kidney injury Rhabdomyolysis Vela in monitor urine output closely Trend BNP Maintenance fluids Trend CK -- Strict I/Os FEN/GI: Severe acute protein calorie malnutrition Acute intravascular volume depletion Hyperkalemia Shock liver Acute metabolic acidosis Hyponatremia Anemia of unclear etiology could be GI bleeding, although the patient has no symptoms of this. Change Protonix drip to 40 mg IV q12 and trend her H&H. Advance diet as tolerated Trend LFTs Daily BMP Hyperkalemia likely secondary to acidosis. resolving Maintenance fluids as above Heme/ID: Anemia of unclear etiology Severe sepsis-present on admission and unclear etiology Leukocytosis Bandemia Vancomycin with pharmacy consultation-DC in 24 hours if cultures negative Cefepime 1 g IV every 8 hours given renal function Flagyl 500 mg IV every 6 F/u C. difficile sample Follow-up on cultures De-escalate antibiotic therapy based on culture data If patient truly does have C. difficile colitis will add p.o. vancomycin, however patient does not have a history of diarrhea and is not having diarrhea here. Endocrine: Hyperglycemia of critical illness -- SSI Prophylaxis: GI Prophylaxis Protonix IV DVT Prophylaxis -- SCDs Given unclear etiology of anemia, will hold off on pharmacologic DVT prophylaxis at this time. If hemoglobin remains stable we will institute DVT prophylaxis Lines: Peripheral IVs Vela Hemodynamics have responded to IV fluids and we will hold off on central venous access at this time Dispo: Admit to ICU. Level 2 Consult [facility] to assume care in am, transfer to Med surg with Yudelka Tompkins MD December 28, 2017 11:41
[2017-12-28] MEDS: PANTOPRAZOLE SODIUM 40 MG VIAL IV PUSH SCH ×2 (12:26→20:09)
--- NOTE | 2017-12-28 15:57 | EKG ---
Date Performed: 12/27/2017 Time Performed: 13:25:52 PTAGE: 72 years EKG: Sinus rhythm NONSPECIFIC T-WAVE ABNORMALITY ABNORMAL ECG when compared to prior ekg, non-specific st-t waves ante rolaterally. PREVIOUS TRACING : 12/04/2014 12.05 DOCTOR: Jahaira Meyers Interpretating Date/Time 12/28/2017 15:57:02
[2017-12-29] VITALS (28 sets, daily range): BP systolic 142–163; BP diastolic 83–111; PULSE 85–122; RESP 14–20; TEMP 97.6–98.4; O2SAT 93–98
[2017-12-29] MEDS: CHLORHEXIDINE GLUCONATE 2 % 1 PACK (2 CLOTHS) TOP SCH (03:39)
[2017-12-29] MEDS: metroNIDAZOLE 500 MG INJ 100 ML IV SCH ×4 (05:34→18:05)
[2017-12-29] MEDS: CEFEPIME INJ 1,000 MG in SODIUM CHLORIDE 0.9% INJ 100 ML IV SCH ×3 (05:35→21:41)
[2017-12-29] MEDS: INSULIN NovoLIN REGULAR SUPPLEMENTAL SCALE SQ SCH ×5 (05:35→23:40)
[2017-12-29] MEDS ORDERED: METOPROLOL TARTRATE 5 MG/5 ML VIAL IV PUSH ONE ×2 (05:45→21:15)
[2017-12-29 06:14] LABS: HEMATOCRIT 39.4 % (35.0-46.0); HEMOGLOBIN 13.1 GM/DL (11.6-15.3); MEAN CELL VOLUME 91.3 FL (80.0-100.0); MEAN CORPUSCULAR HEMOGLOBIN 30.4 PG (27.0-34.0); MEAN CORPUSCULAR HGB CONC 33.3 % (32.0-36.0); MEAN PLATELET VOLUME 7.3 FL (7.0-11.0); PLATELET COUNT 121 TH/MM3 (150-450); RED BLOOD COUNT 4.31 MIL/MM3 (4.00-5.30); RED CELL DISTRIBUTION WIDTH 18.2 % (11.6-17.2); WHITE BLOOD COUNT 19.4 TH/MM3 (4.0-11.0)
[2017-12-29 06:25] LABS: INTERNATIONAL NORMALIZED RATIO 1.2 RATIO; PROTHROMBIN TIME - PATIENT 12.2 SEC (9.8-11.6)
[2017-12-29 07:17] LABS: ALBUMIN 2.4 GM/DL (3.4-5.0); ALKALINE PHOSPHATASE 115 U/L (45-117); ALT (GPT) 544 U/L (10-53); AST (GOT) 260 U/L (15-37); BLOOD UREA NITROGEN 56 MG/DL (7-18); CALCIUM 8.1 MG/DL (8.5-10.1); CHLORIDE 112 MEQ/L (98-107); CREATININE 1.08 MG/DL (0.50-1.00); GLOMERULAR FILTRATION RATE 50 ML/MIN (>89); GLUCOSE,RANDOM 93 MG/DL (74-106); RANDOM VANCOMYCIN 5.3 COMMENT; SODIUM (NA) 144 MEQ/L (136-145); TOTAL BILIRUBIN ADULT 1.6 MG/DL (0.2-1.0); TOTAL PROTEIN 5.6 GM/DL (6.4-8.2)
--- NOTE | 2017-12-29 08:05 | HHI.PR ---
Subjective Remarks patient is awake and alert, interactive and feisty states she lives alone in an apartment with her cat states difficulty swallowing and pain on swallowing for the last 6 months stools - loose- but more of incontinence states significant weight loss states ambulatory with a cane but got "sensitve feet" had recently "torn ligament- right groin" and recent pelvic fracture 2-3 weeks ago Objective Vitals Vital Signs Date Time Temp Pulse Resp B/P (MAP) Pulse Ox O2 Delivery O2 Flow Rate FiO2 12/29/17 05:24 98.4 12/29/17 05:23 160/109 (126) 12/29/17 05:19 106 16 163/111 (128) 96 12/29/17 04:57 97 12/29/17 04:32 108 12/29/17 02:00 98 12/29/17 01:00 91 12/29/17 00:00 102 16 97 12/29/17 00:00 95 12/29/17 00:00 102 12/28/17 23:00 98 12/28/17 22:00 97 12/28/17 21:32 101 12/28/17 21:29 98.4 102 16 150/99 (116) 96 12/28/17 20:00 99.9 98 40 94 12/28/17 20:00 98 12/28/17 19:01 99.4 96 21 155/86 (109) 95 12/28/17 19:00 99.4 97 21 95 12/28/17 18:00 99.4 97 24 151/83 (105) 95 12/28/17 18:00 97 12/28/17 17:01 99.4 94 22 140/80 (100) 97 12/28/17 16:00 99.6 95 15 142/84 (103) 95 12/28/17 16:00 93 12/28/17 15:00 99.5 97 23 142/83 (102) 95 12/28/17 14:00 99.5 94 24 134/86 (102) 94 12/28/17 14:00 94 12/28/17 13:00 99.5 87 18 121/72 (88) 96 12/28/17 12:19 99.5 91 22 114/64 (81) 94 12/28/17 12:00 92 5/22/18 12:00 99.5 92 21 96 12/28/17 11:41 99.5 94 21 127/76 (93) 96 12/28/17 11:00 99.4 92 19 96 12/28/17 10:00 99.4 97 22 162/93 (116) 95 12/28/17 10:00 97 12/28/17 09:00 99.4 86 24 131/96 (108) 95 12/28/17 08:00 89 12/28/17 08:00 99.2 89 24 129/84 (99) 92 I/O 12/28/17 12/28/17 12/28/17 12/29/17 12/29/17 12/29/17 07:00 15:00 23:00 07:00 15:00 23:00 Intake Total 1997 ml 1540 ml 200 ml Output Total 655 ml 370 ml 380 ml Balance 1342 ml 1170 ml -180 ml Intake Oral 240 ml IV Total 1997 ml 1300 ml 200 ml Output Urine Total 655 ml 370 ml 380 ml # Bowel Movements 0 1 Result Diagram: 12/29/17 0551 12/29/17 0551 Imaging Last Impressions Lower Extremity Ultrasound 12/27/17 0000 Signed Impressions: Service Date/Time: Wednesday, December 27, 2017 17:23 - CONCLUSION: Normal examination. Maged Flores MD Head CT 12/27/17 0000 Signed Impressions: Service Date/Time: Wednesday, December 27, 2017 14:49 - CONCLUSION: No acute intracranial process Maged Flores MD Chest X-Ray 12/27/17 0000 Signed Impressions: Service Date/Time: Wednesday, December 27, 2017 15:19 - CONCLUSION: No acute disease Maged Flores MD Abdomen/Pelvis CT 12/27/17 0000 Signed Impressions: Service Date/Time: Wednesday, December 27, 2017 14:54 - CONCLUSION: 1. Nonspecific intestinal pattern with increased fluid accumulation and possible mild wall thickening. There is no significant distention or evidence of free air. 2. Small amount of free fluid in the pelvis. 3. Mildly distended gallbladder. 4. Mild right basilar airspace disease. 5. No evidence of hydronephrosis, free air, mass or lymphadenopathy. Juice Ramirez MD Objective Remarks now is awake and alert, interactive, oriented x 3, gives good history anicteric dry oral mucosa anicteric no nuchal rigidity lungs- no rales regular rhytm abdomen- slgihtly distended but soft, nontender, good bowel sounds extremities- both feet- hyperemia, sensitive to touch both feet, strong , ++ DP, PT moves both LE- limited though A/P Assessment and Plan Assessment: 72-year-old female who presents with symptoms highly concerning for severe sepsis with endorgan dysfunction including acute metabolic encephalopathy , acute kidney injury, acute liver dysfunction. Unclear primary source. C. difficile colitis is certainly a possibility, how ever she has not been on recent antibiotics that we know of. We will obtain pancultures and start her empirically on vancomycin, cefepime, Flagyl IV. IV fluids. Trend her labs and endorgan dysfunction. Despite her relatively stable hemodynamic to this time, she remains critically ill with multiple organ systems which are dysfunctional and life-threatening in this 72-year-old female with comorbid conditions. Admit to ICU. Acute metabolic encephalopathy- MS- improved - Acute kidney injury- likely from poor po rhabdomyolysis Hyperkalemia- resolved Avoid long-acting sedatives continue IVF Aggressive pulmonary toilet Nasal cannula oxygen if needed for goal SPO2 greater than 92% renal functions improving- non oliguric-- place wesley wick for accurate I urine output trend CK Dysphagia/Odynophaigia for 6 months Significant weight Loss Loose stools -? Incontinence - get GI consult- for EGD/colonoscoppy - stools negative for C diff - get speech to do swallowing and cognitive evaluation Severe sepsis Normal saline maintenance fluids, monitor I/O - currently on Cefepime and Flagyl - ff cultures- Severe acute protein calorie malnutrition - dietitian consult Acutre anemia- no signs of GI bleed S/P blood transufsion 2 units on 12/27 - continue PPI - H and H stable - GI consult Shock liver Acute metabolic acidosis Hyponatremia Anemia of unclear etiology could be GI bleeding, although the patient has no symptoms of this. Protonix drip to 40 mg IV q12 and trend her LFts Advance diet as tolerated Trend LFTs Daily BMP - GI consult for GI work up- Anemia of unclear etiology Severe sepsis-present on admission and unclear etiology Leukocytosis/Bandemia was hypotensive on admission- now BP climibing up- history of HTN on Lisinpril as OP Vancomycin with pharmacy consultation-DC in 24 hours if cultures negative Cefepime 1 g IV every 8 hours given renal function Flagyl 500 mg IV every 6 F/u C. difficile sample- will reorder- no sample in lab Follow-up on cultures De-escalate antibiotic therapy based on culture data If patient truly does have C. difficile colitis will add p.o. vancomycin, however patient does not have a history of diarrhea and is not having diarrhea here. 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
[2017-12-29] MEDS: LACTATED RINGER'S 1000 ML INJ 1,000 ML IV SCH ×2 (09:00→21:42)
[2017-12-29] MEDS: DOCUSATE SODIUM 50 MG/SENNA 8.6 MG TAB PO SCH ×2 (09:00→20:00)
[2017-12-29] MEDS: PANTOPRAZOLE SODIUM 40 MG VIAL IV PUSH SCH ×2 (09:33→20:00)
--- NOTE | 2017-12-29 12:33 | PD.CONS ---
HPI History of Present Illness This is a 72 year old female who presented from [facility] with AMS. On admission she4 had low blood pressure, leukocytosis, confusion. GI is consulted for poss EGD/ colonoscopy. Pt is complaining of pain when swallowing for the last 6 months. She is having difficulty swallowing as well; says if she is not careful to eat slowly that she will choke. She endorses epigastric pain as well but cannot further qualify. She admits intermittent diarrhea and constipation in the last year. She admits 25lb weight loss in the last 6 months, citing decreased PO intake d/t painful swallowing. She denies n/v, blood in stool, black tarry stool, liver problems. Not on blood thinners. Pt is poor historian. (Bernice Romero) PFSH Past Medical History HTN osteoporosis Past Surgical History none (Bernice Romero) Coded Allergies: Opioids - Morphine Analogues (Unverified Allergy, Severe, 03/23/17) Opioids-Meperidine and Related (Unverified Allergy, Severe, 03/23/17) Opioids-Methadone and Related (Unverified Allergy, Severe, 03/23/17) morphine (Unverified Allergy, Severe, ANNAPHYLACTIC, 03/23/17) Family History MS Social History drinks 2 beers daily smokes 1-2ppd (Bernice Romero) Review of Systems Constitutional: COMPLAINS OF: Weight loss Endocrine: DENIES: Polydipsia Eyes: DENIES: Blurred vision Ears, nose, mouth, throat: DENIES: Hearing loss Respiratory: DENIES: Cough Cardiovascular: DENIES: Chest pain Gastrointestinal: COMPLAINS OF: Abdominal pain, Constipation, Diarrhea, Difficulty Swallowing, Odynophagia, DENIES: Black stools, Bloody stools, Nausea , Vomiting Genitourinary: DENIES: Hematuria Musculoskeletal: DENIES: Joint Swelling Integumentary: DENIES: Abnormal pigmentation Hematologic/lymphatic: DENIES: Bruising Immunologic/allergic: DENIES: Eczema Neurologic: DENIES: Headache Psychiatric: COMPLAINS OF: Confusion (Bernice Romero) GI Exam Vitals I&O Vital Signs Date Time Temp Pulse Resp B/P (MAP) Pulse Ox O2 Delivery O2 Flow Rate FiO2 12/29/17 11:33 98 Nasal Cannula 1.00 12/29/17 08:46 97.6 85 14 153/98 (116) 93 12/29/17 05:24 98.4 12/29/17 05:23 160/109 (126) 12/29/17 05:19 106 16 163/111 (128) 96 12/29/17 04:57 97 12/29/17 04:32 108 12/29/17 02:00 98 12/29/17 01:00 91 12/29/17 00:00 102 16 97 12/29/17 00:00 95 12/29/17 00:00 102 12/28/17 23:00 98 12/28/17 22:00 97 12/28/17 21:32 101 12/28/17 21:29 98.4 102 16 150/99 (116) 96 12/28/17 20:00 99.9 98 40 94 12/28/17 20:00 98 12/28/17 19:01 99.4 96 21 155/86 (109) 95 12/28/17 19:00 99.4 97 21 95 12/28/17 18:00 99.4 97 24 151/83 (105) 95 12/28/17 18:00 97 12/28/17 17:01 99.4 94 22 140/80 (100) 97 12/28/17 16:00 99.6 95 15 142/84 (103) 95 12/28/17 16:00 93 12/28/17 15:00 99.5 97 23 142/83 (102) 95 12/28/17 14:00 99.5 94 24 134/86 (102) 94 12/28/17 14:00 94 12/28/17 13:00 99.5 87 18 121/72 (88) 96 I/O 12/28/17 12/28/17 12/28/17 12/29/17 12/29/17 12/29/17 07:00 15:00 23:00 07:00 15:00 23:00 Intake Total 1997 ml 1540 ml 200 ml Output Total 655 ml 370 ml 380 ml Balance 1342 ml 1170 ml -180 ml Intake Oral 240 ml IV Total 1997 ml 1300 ml 200 ml Output Urine Total 655 ml 370 ml 380 ml # Bowel Movements 0 1 Imaging Last Impressions Lower Extremity Ultrasound 12/27/17 0000 Signed Impressions: Service Date/Time: Wednesday, December 27, 2017 17:23 - CONCLUSION: Normal examination. Maged Flores MD Head CT 12/27/17 0000 Signed Impressions: Service Date/Time: Wednesday, December 27, 2017 14:49 - CONCLUSION: No acute intracranial process Maged Flores MD Chest X-Ray 12/27/17 0000 Signed Impressions: Service Date/Time: Wednesday, December 27, 2017 15:19 - CONCLUSION: No acute disease Maged Flores MD Abdomen/Pelvis CT 12/27/17 0000 Signed Impressions: Service Date/Time: Wednesday, December 27, 2017 14:54 - CONCLUSION: 1. Nonspecific intestinal pattern with increased fluid accumulation and possible mild wall thickening. There is no significant distention or evidence of free air. 2. Small amount of free fluid in the pelvis. 3. Mildly distended gallbladder. 4. Mild right basilar airspace disease. 5. No evidence of hydronephrosis, free air, mass or lymphadenopathy. Juice Ramirez MD Laboratory Test 12/29/17 05:51 White Blood Count 19.4 TH/MM3 Red Blood Count 4.31 MIL/MM3 Hemoglobin 13.1 GM/DL Hematocrit 39.4 % Mean Corpuscular Volume 91.3 FL Mean Corpuscular Hemoglobin 30.4 PG Mean Corpuscular Hemoglobin Concent 33.3 % Red Cell Distribution Width 18.2 % Platelet Count 121 TH/MM3 Mean Platelet Volume 7.3 FL Prothrombin Time 12.2 SEC Prothromb Time International Ratio 1.2 RATIO Activated Partial Thromboplast Time 26.3 SEC Blood Urea Nitrogen 56 MG/DL Creatinine 1.08 MG/DL Random Glucose 93 MG/DL Total Protein 5.6 GM/DL Albumin 2.4 GM/DL Calcium Level 8.1 MG/DL Alkaline Phosphatase 115 U/L Aspartate Amino Transf (AST/SGOT) 260 U/L Alanine Aminotransferase (ALT/SGPT) 544 U/L Total Bilirubin 1.6 MG/DL Sodium Level 144 MEQ/L Potassium Level 3.7 MEQ/L Chloride Level 112 MEQ/L Carbon Dioxide Level 21.0 MEQ/L Anion Gap 11 MEQ/L Estimat Glomerular Filtration Rate 50 ML/MIN Lactic Acid Level 0.9 mmol/L Total Creatine Kinase 1198 U/L Creatine Kinase MB 23.7 NG/ML Creatine Kinase MB % 2.0 % Random Vancomycin Level 5.3 COMMENT Date/Time Source Procedure Growth Status 12/27/17 13:25 Blood Peripheral Aerobic Blood Culture - Preliminary NO GROWTH IN 2 DAYS Resulted 12/27/17 13:25 Blood Peripheral Anaerobic Blood Culture - Preliminary NO GROWTH IN 2 DAYS Resulted Physical Examination HEENT: PERRL; normocephalic; atraumatic; no jaundice. poor dentition CHEST: shallow CARDIAC: RRR ABDOMEN: semifirm, mildly distended, nontender; no hepatosplenomegaly; bowel sounds are present in all four quadrants. EXTREMITIES: No clubbing, cyanosis, or edema. SKIN: Normal; no rash; no jaundice. ONLINE MERCHANDISING SPECIALIST: alert (Bernice Romero) Assessment and Plan Plan ASSESSMENT - anemia - likely multifactorial. no obvious GIB - dysphagia - choking sensation if she does not eat "carefully and slowly". 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 pt unable to elaborate on this, says she alternates between diarrhea and constipation never had EGD or colonoscopy. CT suggestive poss colitis - elevated LFTs - likely shocked liver. pt admits 2 beers daily. will get liver w/u r/o other cause. - sepsis, DORIE per primary PLAN - stool for c diff, stool cx - EGD and colonoscopy - obtain consent - clear liquids today - NPO after MN - GoLytely prep - liver w/u - monitor labs - notify GI of active bleeding - further recs to follow pt seen by myself and Dr Romeo and this note is on his behalf (Bernice Romero) Physician Comments Patient seen and examined Agree with above Continue with current supportive care Monitor labs Plan for an EGD and colonoscopy tomorrow (Thaddeus Romeo MD) Bernice Romero December 29, 2017 12:33 Thaddeus Romeo MD December 29, 2017 19:10
[2017-12-29] MEDS: VANCOMYCIN 1,000 MG/NS 250 ML IV SCH ×2 (13:09)
[2017-12-29] MEDS ORDERED: PEG (High)/E-LYTE SOLN 4000 ML BTL PO ONE (16:30)
[2017-12-29] MEDS: FLUTICASONE PROPIONATE 50 MCG/ACT 16 GM NASAL SPRAY EACH NARE SCH (21:25)
[2017-12-30] VITALS (21 sets, daily range): BP systolic 100–143; BP diastolic 57–99; PULSE 88–126; RESP 16–18; TEMP 97.9–98.9; O2SAT 94–99
[2017-12-30] MEDS: metroNIDAZOLE 500 MG INJ 100 ML IV SCH ×4 (00:39→18:59)
[2017-12-30] MEDS: CHLORHEXIDINE GLUCONATE 2 % 1 PACK (2 CLOTHS) TOP SCH (04:00)
[2017-12-30] MEDS: CEFEPIME INJ 1,000 MG in SODIUM CHLORIDE 0.9% INJ 100 ML IV SCH ×3 (04:49→21:07)
[2017-12-30 05:36] LABS: HEMATOCRIT 37.1 % (35.0-46.0); HEMOGLOBIN 12.6 GM/DL (11.6-15.3); MEAN CELL VOLUME 91.4 FL (80.0-100.0); MEAN CORPUSCULAR HGB CONC 33.9 % (32.0-36.0); MEAN PLATELET VOLUME 7.6 FL (7.0-11.0); PLATELET COUNT 104 TH/MM3 (150-450); RED BLOOD COUNT 4.06 MIL/MM3 (4.00-5.30); RED CELL DISTRIBUTION WIDTH 18.1 % (11.6-17.2); WHITE BLOOD COUNT 17.6 TH/MM3 (4.0-11.0)
[2017-12-30] MEDS ORDERED: LACTATED RINGER'S 1000 ML IV PRN (06:00)
[2017-12-30] MEDS ORDERED: CHLORHEXIDINE GLUCONATE 2 % 1 PACK (2 CLOTHS) TOPICAL PRN (06:00)
[2017-12-30] MEDS ORDERED: POVIDONE IODINE 5% (ANTISEPSIS KIT) 4 APPLICATIONS EACH NARE PRN (06:00)
[2017-12-30] MEDS ORDERED: SODIUM CHLORID 0.9% 500 ML IV PRN (06:00)
[2017-12-30 06:07] LABS: ALBUMIN 2.2 GM/DL (3.4-5.0); ALKALINE PHOSPHATASE 102 U/L (45-117); ALT (GPT) 406 U/L (10-53); AST (GOT) 205 U/L (15-37); BICARBONATE 22.4 MEQ/L (21.0-32.0); BLOOD UREA NITROGEN 33 MG/DL (7-18); CALCIUM 7.7 MG/DL (8.5-10.1); CHLORIDE 113 MEQ/L (98-107); CREATININE 0.69 MG/DL (0.50-1.00); GLOMERULAR FILTRATION RATE 83 ML/MIN (>89); GLUCOSE,RANDOM 81 MG/DL (74-106); SODIUM (NA) 148 MEQ/L (136-145); TOTAL BILIRUBIN ADULT 1.5 MG/DL (0.2-1.0)
[2017-12-30 07:51] LABS: INTERNATIONAL NORMALIZED RATIO 1.3 RATIO; PROTHROMBIN TIME - PATIENT 13.6 SEC (9.8-11.6)
[2017-12-30] MEDS: PANTOPRAZOLE SODIUM 40 MG VIAL IV PUSH SCH (09:32)
[2017-12-30] MEDS: DOCUSATE SODIUM 50 MG/SENNA 8.6 MG TAB PO SCH ×2 (09:32→20:59)
[2017-12-30] MEDS: VANCOMYCIN 1,000 MG/NS 250 ML IV SCH ×2 (09:33)
[2017-12-30] MEDS ORDERED: LIDOCAINE HCL 1% PF 5 ML SYRINGE OTHER ONE (12:00)
[2017-12-30] MEDS ORDERED: PROPOFOL 200 MG/20 ML AMP IV ONE (12:00)
[2017-12-30] MEDS ORDERED: RESP: ALBUTEROL 2.5 MG/3 ML NEB (PRN) ONE (12:33)
[2017-12-30] MEDS ORDERED: RESP: ALBUTEROL 2.5 MG/3 ML NEB (PRN) NEB ONE (12:40)
[2017-12-30] MEDS ORDERED: DO NOT ADM ANY ANTICOAGULANT DRUGS PRN (13:02)
--- NOTE | 2017-12-30 13:11 | PD.PROCEDR ---
GI Procedure PROCEDURE PERFORMED EGD with biopsy INDICATION FOR PROCEDURE Dysphagia and odynophagia PROCEDURE: The procedure, risks and benefits were discussed with Patient/POA and informed consent was obtained. Anesthesia sedated Patient with Diprivan. Patient was placed in the left lateral decubitus position. EGD: The Pentax videoscope was introduced through the oropharynx and advanced to the second portion of the duodenum under direct visualization. Retroflexion was performed in the stomach. FINDINGS: The esophagus there was severe ulcerated esophagitis from top to bottom this would be grade D reflux esophagitis multiple biopsies were taken for further evaluation The stomach there was mild to moderate hiatal hernia there was a fairly large deep ulcer in the antrum but no raised edges no visible vessel clean based the edges and the ulcer base were biopsied otherwise the rest of the stomach was unremarkable The duodenum this was normal ESTIMATED BLOOD LOSS: None SPECIMENS REMOVED: Esophageal and gastric biopsies COMPLICATIONS: None IMPRESSION: Severe reflux esophagitis grade D Hiatal hernia Gastric ulcer PLAN: Await biopsies Avoid NSAIDs and aspirin and anticoagulation Continue with pantoprazole 40 mg twice daily Recommend soft mechanical diet Viscous lidocaine to help ease the pain orally EGD in 2 months and possible colonoscopy Patient declined colonoscopy today Continue with current supportive care Thaddeus Romeo MD December 30, 2017 13:11
[2017-12-30] MEDS ORDERED: LIDOCAINE VISCOUS 2% SOLN 15 ML UDC SWISH-SWAL PRN (13:15)
[2017-12-30] MEDS: LACTATED RINGER'S 1000 ML INJ 1,000 ML IV SCH (14:18)
--- NOTE | 2017-12-30 15:30 | HHI.PR ---
Subjective Remarks swallowing better now main concern is bilateal feet pain - unable to bear weight "sensitive" Objective Vitals Vital Signs Date Time Temp Pulse Resp B/P (MAP) Pulse Ox O2 Delivery O2 Flow Rate FiO2 12/30/17 11:30 120 21 118/81 (93) 95 12/30/17 10:48 Nasal Cannula 3 12/30/17 10:48 98.1 95 18 111/75 (87) 93 12/30/17 07:30 98.9 114 18 137/88 (104) 99 12/30/17 07:00 114 12/30/17 06:00 112 12/30/17 05:00 110 12/30/17 04:00 113 12/30/17 04:00 98.0 100 16 131/89 (103) 94 12/30/17 03:00 106 12/30/17 02:00 114 12/30/17 01:00 110 12/30/17 00:00 98.0 100 18 143/99 (114) 95 12/30/17 00:00 96 12/29/17 23:00 108 12/29/17 22:00 151/93 (112) 12/29/17 22:00 104 12/29/17 21:00 116 12/29/17 20:00 122 12/29/17 20:00 97.8 109 20 150/102 (118) 98 12/29/17 19:00 112 12/29/17 18:00 122 12/29/17 17:00 120 12/29/17 16:00 98.0 116 16 143/83 (103) 98 12/29/17 16:00 100 I/O 12/29/17 12/29/17 12/29/17 12/30/17 12/30/17 12/30/17 07:00 15:00 23:00 07:00 15:00 23:00 Intake Total 1820 ml 340 ml 500 ml Output Total 300 ml 800 ml Balance 1520 ml -460 ml 500 ml Intake Oral 720 ml 240 ml IV Total 1100 ml 100 ml Other 500 ml Output Urine Total 300 ml 800 ml # Bowel Movements 1 Result Diagram: 12/30/17 0515 12/30/17 0515 Imaging Last Impressions Lower Extremity Ultrasound 12/27/17 0000 Signed Impressions: Service Date/Time: Wednesday, December 27, 2017 17:23 - CONCLUSION: Normal examination. Maged Flores MD Head CT 12/27/17 0000 Signed Impressions: Service Date/Time: Wednesday, December 27, 2017 14:49 - CONCLUSION: No acute intracranial process Maged Flores MD Chest X-Ray 12/27/17 0000 Signed Impressions: Service Date/Time: Wednesday, December 27, 2017 15:19 - CONCLUSION: No acute disease Maged Flores MD Abdomen/Pelvis CT 12/27/17 0000 Signed Impressions: Service Date/Time: Wednesday, December 27, 2017 14:54 - CONCLUSION: 1. Nonspecific intestinal pattern with increased fluid accumulation and possible mild wall thickening. There is no significant distention or evidence of free air. 2. Small amount of free fluid in the pelvis. 3. Mildly distended gallbladder. 4. Mild right basilar airspace disease. 5. No evidence of hydronephrosis, free air, mass or lymphadenopathy. Juice Ramirez MD Objective Remarks awake and alert, interactive, oriented x 3, gives good history anicteric dry oral mucosa anicteric no nuchal rigidity lungs- no rales regular rhytm abdomen- soft, good bowel sounds extremities- both feet- hyperemia, sensitive to touch both feet, strong , ++ DP, PT moves both LE- limited though Procedures 12/30 - EGD A/P Assessment and Plan Assessment: 72-year-old female who presents with symptoms highly concerning for severe sepsis with endorgan dysfunction including acute metabolic encephalopathy , acute kidney injury, acute liver dysfunction. Unclear primary source. C. difficile colitis is certainly a possibility, how ever she has not been on recent antibiotics that we know of. We will obtain pancultures and start her empirically on vancomycin, cefepime, Flagyl IV. IV fluids. Trend her labs and endorgan dysfunction. Despite her relatively stable hemodynamic to this time, she remains critically ill with multiple organ systems which are dysfunctional and life-threatening in this 72-year-old female with comorbid conditions. Admit to ICU. Acute metabolic encephalopathy- MS- improved - Acute kidney injury- likely from poor po- improved with hydration rhabdomyolysis - Hyperkalemia- resolved- now with low Potassium MIld hypernatemia Avoid long-acting sedatives continue IVF- change to 1/2 NS + KCL Aggressive pulmonary toilet Nasal cannula oxygen if needed for goal SPO2 greater than 92% renal functions improving- non oliguric-- place wesley wick for accurate I urine output trend CK- recheck in am give 50 meq Potassium now Dysphagia/Odynophaigia for 6 months Significant weight Loss S/P EGD- esophagitis, gastric ulcer - get GI PPI change to po - stools negative for C diff - patient refused colonoscopy Severe acute protein calorie malnutrition - dietitian consult Acute anemia- no signs of GI bleed S/P EGD 12/30 S/P blood transufsion 2 units on 12/27 - continue PPI - H and H stable Shock liver Acute metabolic acidosis Hyponatremia Anemia of unclear etiology could be GI bleeding, although the patient has no symptoms of this. Advance diet as tolerated Trend LFTs- improving Anemia of unclear etiology Severe sepsis-present on admission and unclear etiology Leukocytosis/Bandemia was hypotensive on admission- now BP climibing up- history of HTN on Lisinpril as OP Vancomycin with pharmacy consultation-DC in 24 hours if cultures negative Cefepime 1 g IV every 8 hours given renal function Flagyl 500 mg IV every 6 F/u C. difficile sample- will reorder- no sample in lab Follow-up on cultures- negative so far De-escalate antibiotic therapy based on culture data If patient truly does have C. difficile colitis will add p.o. vancomycin, however patient does not have a history of diarrhea and is not having diarrhea here. - stools d/w nurse- semi formed- cotninue to monitor BP and prn IV- unable to swallow - Endocrine: Hyperglycemia of critical illness- good readings --DC monitoring Bilateral feet pain- hypersensitive and hyperemic on exam- very good pulses ? Neuropathy - monitor - PT consult - Podiatry consult Tachycardia- sinus rate 120s =- review home meds was on Propranolol 20 mg po bid- held on admission- due to shock - give x1 LOpressor now then start bid tonight Prophylaxis: GI Prophylaxis Protonix DVT Prophylaxis -- SCDs- TEDs - hold pharmacologic propjylaxis - in light of sever anemia- PT consult- evaluate CM consult- will definitely need them to assist with DC- unsafe to live by herself Mary Cao MD December 30, 2017 15:30
[2017-12-30] MEDS ORDERED: POTASSIUM BICARBONATE 25 MEQ EFFERVESCENT TAB PO ONE (15:45)
[2017-12-30] MEDS: D5-1/2 NS + KCL 20 MEQ INJ 1,000 ML IV SCH (15:45)
[2017-12-30] MEDS ORDERED: METOPROLOL TARTRATE 5 MG/5 ML VIAL IV PUSH ONE (17:00)
--- NOTE | 2017-12-30 20:36 | PD.CONS ---
History of Present Illness Service Foot and ankle surgery/podiatry Consult Requested By Reason for Consult Bilateral foot pain which inhibits patient's walking Primary Care Physician Unknown Diagnoses: History of Present Illness Maynor consulted for this 72-year-old female for bilateral painful foot which she states she cannot walk on. Patient presented from an assisted living center for altered mental status, per her assisted living facility she is more confused than her normal baseline. Patient denies any nausea vomiting fevers or chills. Patient was admitted with severe sepsis with endorgan dysfunction secondary to unknown primary source. Review of Systems Constitutional: COMPLAINS OF: Fatigue, DENIES: Fever Ears, nose, mouth, throat: DENIES: Hearing loss Respiratory: DENIES: Cough, Shortness of breath Cardiovascular: COMPLAINS OF: Lower Extremity Edema, Claudication, DENIES: Chest pain, Palpitations Gastrointestinal: DENIES: Abdominal pain Musculoskeletal: COMPLAINS OF: Joint pain Integumentary: COMPLAINS OF: Abnormal pigmentation Hematologic/lymphatic: COMPLAINS OF: Bruising (to left dorsal foot) Neurologic: COMPLAINS OF: Abnormal gait Psychiatric: COMPLAINS OF: Confusion, DENIES: Anxiety Past Family Social History Allergies: Coded Allergies: Opioids - Morphine Analogues (Unverified Allergy, Severe, 03/23/17) Opioids-Meperidine and Related (Unverified Allergy, Severe, 03/23/17) Opioids-Methadone and Related (Unverified Allergy, Severe, 03/23/17) morphine (Unverified Allergy, Severe, ANNAPHYLACTIC, 03/23/17) Active Ordered Medications Current Medications Medications (Trade) Dose Ordered Sig/Florecita Route Start Time Stop Time Status Last Admin Norepinephrine Bitartrate 250 ml @ 7.5 mls/hr TITRATE PRN IV 12/27/17 16:30 (Brethine Inj) 1 mg UNSCH PRN SQ 12/27/17 16:30 Pharmacy Profile Note 0 ml @ 0 mls/hr UNSCH OTHER 12/27/17 16:45 Cefepime HCl 1000 mg/Sodium Chloride 100 ml @ 200 mls/hr Q8H IV 12/27/17 22:00 12/30/17 15:37 Metronidazole 100 ml @ 100 mls/hr Q6H IV 12/27/17 18:00 12/30/17 18:59 (Duoneb Neb) 1 ampule Q2HR NEB PRN INH 12/27/17 16:45 (Misc Nursing Information) 1 Q361D XX 12/27/17 16:45 (Chlorhexidine 2% Cloth) 3 pack Taper DAILY@04 TOP 12/28/17 04:00 12/24/18 03:59 12/30/17 04:00 (Chlorhexidine 2% Cloth) 3 pack UNSCH PRN TOP 12/27/17 16:45 (Jeny-Colace) 1 tab BID PO 12/27/17 21:00 12/30/17 09:32 (Milk Of Magnesia Liq) 30 ml Q12H PRN PO 12/27/17 16:45 12/28/17 17:37 (Senokot) 17.2 mg Q12H PRN PO 12/27/17 16:45 (Dulcolax Supp) 10 mg DAILY PRN RECTAL 12/27/17 16:45 (Lactulose Liq) 30 ml DAILY PRN PO 12/27/17 16:45 Vancomycin HCl 1000 mg/Sodium Chloride 250 ml @ 250 mls/hr Q24H IV 12/29/17 11:00 12/30/17 09:33 ([facility] [place] Lab Info) SPECIFIC LAB TO BE DRAWN:VANCOMYCIN TROUGH DATE TO... ONCE ONCE .XX 12/31/17 10:45 12/31/17 10:46 (Flonase Jack Spr) 2 spray HS EACH NARE 12/29/17 21:15 12/29/17 21:25 Lactated Ringer's 1,000 ml @ 30 mls/hr Q24H PRN IV 12/30/17 06:00 01/02/18 05:59 Sodium Chloride 500 ml @ 30 mls/hr [id number] PRN IV 12/30/17 06:00 01/02/18 05:59 (Betadine 5% Antisepsis Kit) 1 applic SALVAGE MECHANIC PRN EACH NARE 12/30/17 06:00 01/02/18 05:59 (Chlorhexidine 2% Cloth) 3 pack SALVAGE MECHANIC PRN TOPICAL 12/30/17 06:00 01/02/18 05:59 (Xylocaine 2% Viscous) 15 ml Q4H PRN SWISH-SWAL 12/30/17 13:15 (Protonix) 40 mg Q12HR PO 12/30/17 21:00 (Misc Nursing Information) ALL NURSING DEPARTME... UNSCH PRN .XX 12/30/17 13:02 12/31/17 13:01 Potassium Chloride/Dextrose/ Sod Cl 1,000 ml @ 70 mls/hr [id number] IV 12/30/17 15:45 12/30/17 15:45 (Inderal) 20 mg Q12HR PO 12/30/17 21:00 Physical Exam Vital Signs Vital Signs Date Time Temp Pulse Resp B/P (MAP) Pulse Ox O2 Delivery O2 Flow Rate FiO2 12/30/17 19:51 98 Nasal Cannula 3.00 12/30/17 15:16 97.9 122 18 120/69 (86) 98 12/30/17 13:30 12/30/17 13:20 119 21 113/74 (87) 95 Nasal Cannula 3 12/30/17 13:15 121 21 107/71 (83) 95 Nasal Cannula 3 12/30/17 13:03 97.9 122 21 110/73 (85) 99 Nasal Cannula 4 12/30/17 11:30 120 21 118/81 (93) 95 12/30/17 11:00 98.8 120 18 131/79 (96) 98 12/30/17 10:48 Nasal Cannula 3 12/30/17 10:48 98.1 95 18 111/75 (87) 93 12/30/17 07:30 98.9 114 18 137/88 (104) 99 12/30/17 07:00 114 12/30/17 06:00 112 12/30/17 05:00 110 12/30/17 04:00 113 12/30/17 04:00 98.0 100 16 131/89 (103) 94 12/30/17 03:00 106 12/30/17 02:00 114 12/30/17 01:00 110 12/30/17 00:00 98.0 100 18 143/99 (114) 95 12/30/17 00:00 96 12/29/17 23:00 108 12/29/17 22:00 151/93 (112) 12/29/17 22:00 104 12/29/17 21:00 116 Physical Exam GENERAL: This is a well-nourished, well-developed patient, in no apparent distress. SKIN: Lacelike mottled appearance resembling livedo reticularis diffusely to bilateral foot HEAD: Atraumatic. EYES: Pupils equal round and reactive. ENT: Airway patent. NECK: Trachea midline. RESPIRATORY: Nonlabored breathing. MUSCULOSKELETAL:. Negative Homans sign bilaterally. NEUROLOGICAL: Awake and alert. Normal speech. Lower extremity physical exam: Vascular: Dorsalis pedis non-palp, posterior tibial nonpalpable. Capillary refill time within normal limits to digits x5 times bilateral foot. Edema present bilateral lower extremities Neuro: Gross sensation intact to bilateral lower extremity. Pinpoint sensation intact. No hyperalgesia noted to bilateral lower extremity Dermatology: Normal temperature and turgor to bilateral lower extremity. Mottled appearance to bilateral foot. Ecchymosis with erythema noted to left dorsal midfoot, edema greater to left dorsal foot then right foot. No open lesions, no acute signs of infection. Musculoskeletal: Tender to palpation to metatarsal heads. Laboratory Laboratory Tests Test 12/29/17 21:35 12/30/17 05:15 12/30/17 07:21 Stool C. difficile Toxin (PCR) NEGATIVE Stl C. difficile Toxin Epiderm 027 PRESUMPTIVE NEGATIVE White Blood Count 17.6 Red Blood Count 4.06 Hemoglobin 12.6 Hematocrit 37.1 Mean Corpuscular Volume 91.4 Mean Corpuscular Hemoglobin 31.0 Mean Corpuscular Hemoglobin Concent 33.9 Red Cell Distribution Width 18.1 Platelet Count 104 Mean Platelet Volume 7.6 Blood Urea Nitrogen 33 Creatinine 0.69 Random Glucose 81 Total Protein 5.0 Albumin 2.2 Calcium Level 7.7 Alkaline Phosphatase 102 Aspartate Amino Transf (AST/SGOT) 205 Alanine Aminotransferase (ALT/SGPT) 406 Total Bilirubin 1.5 Sodium Level 148 Potassium Level 3.2 Chloride Level 113 Carbon Dioxide Level 22.4 Anion Gap 13 Estimat Glomerular Filtration Rate 83 Lactic Acid Level 1.5 Tumor Marker Alpha Fetoprotein 7.4 Hepatitis A IgM Antibody NONREACTIVE Hepatitis B Surface Antigen NONREACTIVE Hepatitis B Core IgM Antibody NONREACTIVE Hepatitis C IgG Antibody NONREACTIVE Prothrombin Time 13.6 Prothromb Time International Ratio 1.3 Activated Partial Thromboplast Time 26.4 Date/Time Source Procedure Growth Status 12/27/17 13:25 Blood Peripheral Aerobic Blood Culture - Preliminary NO GROWTH IN 3 DAYS Resulted 12/27/17 13:25 Blood Peripheral Anaerobic Blood Culture - Preliminary NO GROWTH IN 3 DAYS Resulted 12/29/17 21:35 Stool Stool Cryptosporidium Exam - Final NEGATIVE - NO CRYPTOSPORIDIUM ANTIGEN... Complete 12/29/17 21:35 Stool Stool Giardia Antigen (KASSIDY) - Final NEGATIVE - NO GIARDIA ANTIGEN DETECTE... Complete Result Diagram: 12/30/17 0515 12/30/17 0515 Imaging Last Impressions Foot X-Ray 12/30/17 0000 Impressions: CONCLUSION: 1. Fracture of the proximal phalanx fifth digit. 2. Possible punctate radiopaque foreign bodies in soft tissues medial to the f irst digit interphalangeal joint. Lower Extremity Ultrasound 12/27/17 0000 Signed Impressions: Service Date/Time: Wednesday, December 27, 2017 17:23 - CONCLUSION: Normal examination. Maged Flores MD Head CT 12/27/17 0000 Signed Impressions: Service Date/Time: Wednesday, December 27, 2017 14:49 - CONCLUSION: No acute intracranial process Maged Flores MD Chest X-Ray 12/27/17 0000 Signed Impressions: Service Date/Time: Wednesday, December 27, 2017 15:19 - CONCLUSION: No acute disease Maged Flores MD Abdomen/Pelvis CT 12/27/17 0000 Signed Impressions: Service Date/Time: Wednesday, December 27, 2017 14:54 - CONCLUSION: 1. Nonspecific intestinal pattern with increased fluid accumulation and possible mild wall thickening. There is no significant distention or evidence of free air. 2. Small amount of free fluid in the pelvis. 3. Mildly distended gallbladder. 4. Mild right basilar airspace disease. 5. No evidence of hydronephrosis, free air, mass or lymphadenopathy. Juice Ramirez MD Assessment and Plan Assessment and Plan 72-year-old female bilateral foot pain Patient examined and evaluated with all questions answered X-rays reviewed Right foot fifth digit proximal phalanx fracture reported on x-ray report, can damaris tape fourth and fifth digit however patient was not complaining of pain and did not report pain on palpation to fifth digit not sure if this is an acute injury -patient okay to weight-bear Recommend continued physical therapy strengthening Ordered ABIs, will consult vascular if necessary Continue with compression stockings No open lesions and no acute signs of infection Kayla Arias DPM December 30, 2017 20:36
--- NOTE | 2017-12-30 20:39 | RADRPT ---
EXAM DATE: 12/30/2017 8:24 PM EDT AGE/SEX: 72 years / Female INDICATIONS: Right foot pain, denies injury CLINICAL DATA: This is the patient's initial encounter. Patient reports that signs and symptoms have been present for 4 - 6 days and indicates a pain score of 8/10. MEDICAL/SURGICAL HISTORY: None. None. COMPARISON: No prior [facility] exams available for comparison. FINDINGS: There is a fracture of the metaphysis of the proximal phalanx of the fifth digit with mild displaceme nt and intra-articular extension medially. The remainder of the osseous structures are in normal alig nment. A few punctate densities in the soft tissues adjacent to the medial interphalangeal joint of t he first digit, only seen on the frontal view, suggesting possible punctate radiopaque foreign bodies . CONCLUSION: 1. Fracture of the proximal phalanx fifth digit. 2. Possible punctate radiopaque foreign bodies in soft tissues medial to the first digit interphalan geal joint. Electronically signed by: Josef Greene MD 12/30/2017 8:37 PM EDT
[2017-12-30] MEDS: PROPRANOLOL HCL 20 MG TAB PO SCH (20:59)
[2017-12-30] MEDS: PANTOPRAZOLE SOD 40 MG DELAYED RELEASE TAB PO SCH (20:59)
[2017-12-30] MEDS: FLUTICASONE PROPIONATE 50 MCG/ACT 16 GM NASAL SPRAY EACH NARE SCH (21:00)
--- NOTE | 2017-12-30 21:17 | RADRPT ---
EXAM DATE: 12/30/2017 8:26 PM EDT AGE/SEX: 72 years / Female INDICATIONS: Left foot pain, denies injury CLINICAL DATA: This is the patient's initial encounter. Patient reports that signs and symptoms have been present for 3 days and indicates a pain score of 5/10. MEDICAL/SURGICAL HISTORY: None. None. COMPARISON: No prior [place] exams available for comparison. FINDINGS: AP, lateral and oblique views of the left foot were obtained and demonstrate diffuse osteopenia with no acute fracture or malalignment. There are degenerative changes in the metatarsal tarsal joints and intertarsal joints with sclerosis and mild spurring. No focal soft tissue abnormality is identified. CONCLUSION: 1. 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 2. Osteopenia with no acute fracture. Electronically signed by: Bimal Eli MD 12/30/2017 9:16 PM EDT
[2017-12-30] MEDS ORDERED: ZOLPIDEM TARTRATE 5 MG TAB PO ONE (23:30)
[2017-12-31] VITALS (7 sets, daily range): BP systolic 100–141; BP diastolic 59–91; PULSE 76–93; RESP 16–24; TEMP 96.6–98; O2SAT 91–98
[2017-12-31] MEDS: CHLORHEXIDINE GLUCONATE 2 % 1 PACK (2 CLOTHS) TOP SCH (00:32)
[2017-12-31] MEDS: D5-1/2 NS + KCL 20 MEQ INJ 1,000 ML IV SCH ×2 (04:23→21:51)
[2017-12-31] MEDS: metroNIDAZOLE 500 MG INJ 100 ML IV SCH ×3 (04:23→11:20)
[2017-12-31] MEDS: CEFEPIME INJ 1,000 MG in SODIUM CHLORIDE 0.9% INJ 100 ML IV SCH (04:23)
--- NOTE | 2017-12-31 07:19 | EKG ---
Date Performed: 12/30/2017 Time Performed: 11:25:26 PTAGE: 72 years EKG: SINUS TACHYCARDIA WITH FREQUENT SUPRAVENTRICULAR PREMATURE COMPLEXES MODERATE T-WAVE ABNORM ALITY, CONSIDER ANTERIOR ISCHEMIA ABNORMAL ECG PREVIOUS TRACING : 12/27/2017 13.25 DOCTOR: Jd Lr Interpretating Date/Time 12/31/2017 07:17:01
[2017-12-31] MEDS: traMADol HCL 50 MG TAB PO PRN (07:30)
[2017-12-31] MEDS: RESP: ALBUTEROL 2.5 MG/IPRATROPIUM 0.5 MG NEB (PRN) INH (08:22)
[2017-12-31] MEDS ORDERED: PHARMACY ORDERED LAB ONE (10:45)
[2017-12-31] MEDS: VANCOMYCIN 1,000 MG/NS 250 ML IV SCH ×2 (11:19)
[2017-12-31] MEDS: DOCUSATE SODIUM 50 MG/SENNA 8.6 MG TAB PO SCH ×2 (11:24→21:00)
[2017-12-31] MEDS: PROPRANOLOL HCL 20 MG TAB PO SCH ×2 (11:24→21:00)
[2017-12-31] MEDS: PANTOPRAZOLE SOD 40 MG DELAYED RELEASE TAB PO SCH ×2 (11:24→21:47)
--- NOTE | 2017-12-31 11:24 | RADRPT ---
EXAM DATE: 12/31/2017 11:12 AM EDT AGE/SEX: 72 years / Female INDICATIONS: Septic Shock CLINICAL DATA: This is the patient's initial encounter. Patient reports that signs and symptoms have been present for 2 weeks and indicates a pain score of 5/10. MEDICAL/SURGICAL HISTORY: . Hypertension, Osteoporosis, Back injury 1989, Post Menopausal . No prior surgeries COMPARISON: No prior [facility] exams available for comparison. TECHNIQUE: Four-cuff ankle and brachial pressures were obtained. Pulse cuff waveform tracings of the ankles were recorded, and ankle-brachial indices were calculated. PRESSURES (mmHg): Brachial (arm) : RIGHT: IV SITE, LEFT: 104 Ankle : RIGHT: 107, LEFT: 113 MARTY : RIGHT: 1.03, LEFT: 1.09 TBI : RIGHT: 0.58, LEFT: 0.23 PULSED CUFF WAVEFORMS: Markedly decreased amplitudes in the left toe. CONCLUSION: 1. Normal range bilateral ankle-brachial indices. 2. Moderately diminished toe brachial index on the left consistent with small vessel disease. Electronically signed by: Darell Martin MD 12/31/2017 11:22 AM EDT
--- NOTE | 2017-12-31 12:50 | HHI.PR ---
Subjective Remarks The patient was resting comfortably in bed. She was eating lunch. She said she felt a lot better. She said her feet were better. She has been having some shortness of breath. She denies any diarrhea. Objective Vitals Vital Signs Date Time Temp Pulse Resp B/P (MAP) Pulse Ox O2 Delivery O2 Flow Rate FiO2 12/31/17 08:32 98 Nasal Cannula 2.50 12/31/17 08:00 97.3 77 24 141/91 (108) 92 12/31/17 04:52 96.9 85 16 138/86 (103) 92 12/30/17 23:19 98.7 88 18 141/93 (109) 94 12/30/17 20:57 98.3 113 16 100/57 (71) 98 12/30/17 19:51 98 Nasal Cannula 3.00 12/30/17 18:00 112 12/30/17 17:00 120 12/30/17 16:00 126 12/30/17 15:16 97.9 122 18 120/69 (86) 98 12/30/17 15:00 124 12/30/17 13:30 12/30/17 13:20 119 21 113/74 (87) 95 Nasal Cannula 3 12/30/17 13:15 121 21 107/71 (83) 95 Nasal Cannula 3 12/30/17 13:03 97.9 122 21 110/73 (85) 99 Nasal Cannula 4 I/O 12/30/17 12/30/17 12/30/17 12/31/17 12/31/17 12/31/17 07:00 15:00 23:00 07:00 15:00 23:00 Intake Total 340 ml 800 ml 720 ml 1300 ml Output Total 800 ml 1 ml 300 ml Balance -460 ml 799 ml 720 ml 1000 ml Intake Oral 240 ml 720 ml IV Total 100 ml 1300 ml Other 800 ml Output Urine Total 800 ml 300 ml Stool Total 1 ml # Voids 2 # Bowel Movements 2 Result Diagram: 12/30/17 0515 12/30/17 0515 Imaging Last Impressions Foot X-Ray 12/30/17 0000 Signed Impressions: CONCLUSION: 1. Osteoarthritic change in the metatarsal tarsal joints and intertarsal joint s. 2. Osteopenia with no acute fracture. Extremity Arterial Study 12/30/17 0000 Signed Impressions: CONCLUSION: 1. Normal range bilateral ankle-brachial indices. 2. Moderately diminished toe brachial index on the left consistent with small vessel disease. Lower Extremity Ultrasound 12/27/17 0000 Signed Impressions: Service Date/Time: Wednesday, December 27, 2017 17:23 - CONCLUSION: Normal examination. Maged Flores MD Head CT 12/27/17 0000 Signed Impressions: Service Date/Time: Wednesday, December 27, 2017 14:49 - CONCLUSION: No acute intracranial process Maged Flores MD Chest X-Ray 12/27/17 0000 Signed Impressions: Service Date/Time: Wednesday, December 27, 2017 15:19 - CONCLUSION: No acute disease Maged Flores MD Abdomen/Pelvis CT 12/27/17 0000 Signed Impressions: Service Date/Time: Wednesday, December 27, 2017 14:54 - CONCLUSION: 1. Nonspecific intestinal pattern with increased fluid accumulation and possible mild wall thickening. There is no significant distention or evidence of free air. 2. Small amount of free fluid in the pelvis. 3. Mildly distended gallbladder. 4. Mild right basilar airspace disease. 5. No evidence of hydronephrosis, free air, mass or lymphadenopathy. Juice Ramirez MD Objective Remarks GENERAL: Frail elderly female, sitting up in bed, no distress HEENT: Normocephalic. Atraumatic. Pupils equal, round, reactive, conjugate. Mucous membranes are dry NECK: Trachea is midline. There is no JVD. CHEST: Equal chest rise. Mild wheezing. CARDIOVASCULAR: Normal rate, regular rhythm appears sinus by telemetry. ABDOMEN: Soft, nontender, nondistended. No guarding. No hepatosplenomegaly. MUSCULOSKELETAL: Pulses 2+. No peripheral edema. NEUROLOGICAL: Awake and alert. Moves upper and lower extremities. Procedures 12/30 - EGD A/P Assessment and Plan Acute kidney injury/ Hypernatremia Likely from poor po- improved with hydration. - continue IVF- change to D51/2 NS + KCL. - avoid nephrotoxins. - follow BMP. Dysphagia/Odynophaigia For 6 months with significant weight loss. GI consult appreciated. S/P EGD- severe esophagitis, gastric ulcer. - PPI. - outpt follow-up with GI. - ADAT. Severe acute protein calorie malnutrition S/t above. - dietitian consulted. Acute anemia No signs of GI bleed S/P EGD 12/30 as above. S/P blood transfusion 2 units on . - continue PPI - H and H stable, continue to monitor. Shock liver S/t acute presentation. Improving. - trend LFTs. Severe sepsis Leukocytosis/Bandemia. Was hypotensive on admission- now BP climbing up. C diff negative. - d/c antibiotics and monitor. - repeat CXR. - ID consult if no improvement. Bilateral foot pain Hypersensitive and hyperemic on exam- very good pulses. ? Neuropathy. Podiatry consult appreciated. Imaging noted. - PT/ OT consult. - Podiatry following. PPx: Bimal Pruitt DO December 31, 2017 12:50
[2017-12-31 13:44] LABS: SMOOTH MUSCLE TOTAL AUTOABS Negative (Negative)
--- NOTE | 2017-12-31 14:08 | RADRPT ---
EXAM DATE: 12/31/2017 2:05 PM EDT AGE/SEX: 72 years / Female INDICATIONS: Fever and cough. CLINICAL DATA: This is the patient's initial encounter. Patient reports that signs and symptoms have been present for 3 days and indicates a pain score of 0/10. MEDICAL/SURGICAL HISTORY: Hypertension. Osteoporosis. . 1990 back [place] [facility] [place]. . FINDINGS: Bilateral basilar infiltrates and effusions are present, left worse than right. Cardiac contours are grossly stable accounting for differences in rotation. CONCLUSION: Bibasilar infiltrates and effusions. Electronically signed by: Maged Flores MD 12/31/2017 2:07 PM EDT
--- NOTE | 2017-12-31 14:10 | HHI.GIFU ---
Subjective Remarks Sitting up in bed eating lunch, weakened Hoarse voice, raspy understandable No nausea no vomiting Afebrile (Jeanna Renteria) Objective Vitals I&O Vital Signs Date Time Temp Pulse Resp B/P (MAP) Pulse Ox O2 Delivery O2 Flow Rate FiO2 12/31/17 12:00 96.6 76 20 109/76 (87) 91 12/31/17 08:32 98 Nasal Cannula 2.50 12/31/17 08:00 97.3 77 24 141/91 (108) 92 12/31/17 04:52 96.9 85 16 138/86 (103) 92 12/30/17 23:19 98.7 88 18 141/93 (109) 94 12/30/17 20:57 98.3 113 16 100/57 (71) 98 12/30/17 19:51 98 Nasal Cannula 3.00 12/30/17 18:00 112 12/30/17 17:00 120 12/30/17 16:00 126 12/30/17 15:16 97.9 122 18 120/69 (86) 98 12/30/17 15:00 124 I/O 12/30/17 12/30/17 12/30/17 12/31/17 12/31/17 12/31/17 07:00 15:00 23:00 07:00 15:00 23:00 Intake Total 340 ml 800 ml 720 ml 1300 ml Output Total 800 ml 1 ml 300 ml Balance -460 ml 799 ml 720 ml 1000 ml Intake Oral 240 ml 720 ml IV Total 100 ml 1300 ml Other 800 ml Output Urine Total 800 ml 300 ml Stool Total 1 ml # Voids 2 # Bowel Movements 2 Laboratory Date/Time Source Procedure Growth Status 12/27/17 13:25 Blood Peripheral Aerobic Blood Culture - Preliminary NO GROWTH IN 4 DAYS Resulted 12/27/17 13:25 Blood Peripheral Anaerobic Blood Culture - Preliminary NO GROWTH IN 4 DAYS Resulted 12/29/17 21:35 Stool Stool Cryptosporidium Exam - Final NEGATIVE - NO CRYPTOSPORIDIUM ANTIGEN... Complete 12/29/17 21:35 Stool Stool Giardia Antigen (KASSIDY) - Final NEGATIVE - NO GIARDIA ANTIGEN DETECTE... Complete Imaging Last Impressions Foot X-Ray 12/30/17 0000 Signed Impressions: CONCLUSION: 1. Osteoarthritic change in the metatarsal tarsal joints and intertarsal joint s. 2. Osteopenia with no acute fracture. Extremity Arterial Study 12/30/17 Signed Impressions: CONCLUSION: 1. Normal range bilateral ankle-brachial indices. 2. Moderately diminished toe brachial index on the left consistent with small vessel disease. Lower Extremity Ultrasound 12/27/17 Signed Impressions: Service Date/Time: Wednesday, December 27, 2017 17:23 - CONCLUSION: Normal examination. Maged Flores MD Head CT 12/27/17 Signed Impressions: Service Date/Time: Wednesday, December 27, 2017 14:49 - CONCLUSION: No acute intracranial process Maged Flores MD Chest X-Ray 12/27/17 Signed Impressions: Service Date/Time: Wednesday, December 27, 2017 15:19 - CONCLUSION: No acute disease Maged Flores MD Abdomen/Pelvis CT 12/27/17 Signed Impressions: Service Date/Time: Wednesday, December 27, 2017 14:54 - CONCLUSION: 1. Nonspecific intestinal pattern with increased fluid accumulation and possible mild wall thickening. There is no significant distention or evidence of free air. 2. Small amount of free fluid in the pelvis. 3. Mildly distended gallbladder. 4. Mild right basilar airspace disease. 5. No evidence of hydronephrosis, free air, mass or lymphadenopathy. Juice Ramirez MD Physical Exam HEENT: normocephalic; atraumatic; no jaundice. Hoarse voice raspy but understandable NECK: Neck is supple CHEST: Diminished breath sounds in her bases, occasional mild expiratory wheeze CARDIAC: Regular rate and rhythm heart rate 76. ABDOMEN: Soft, round, nondistended, positive bowel sounds EXTREMITIES: No clubbing, cyanosis, or edema. SKIn thin dry turgor no rash; no jaundice. APPEALS OFFICER: Awake, answering simple questions (Jeanna Renteria) Assessment and Plan Plan ASSESSMENT - anemia - likely multifactorial. no obvious GIB - dysphagia - choking sensation if she does not eat "carefully and slowly". thin liquids and puree per OPTOMETRIC AIDE - odynophagia - duration 6 months, pain in ribs and sternal area when swallowing ?esophagitis - epigastric pain - unclear etiology, limited hx from pt, no further details - loose stool - reports of watery stool. pt unable to elaborate on this, says she alternates between diarrhea and constipation never had EGD or colonoscopy. CT suggestive poss colitis - elevated LFTs - likely shocked liver. pt admits 2 beers daily. will get liver w/u r/o other cause. - sepsis, DORIE per primary On 12/30 2017 patient had EGD, finding showed severe reflux esophagitis grade D which would explain her hoarseness, hiatal hernia and gastric ulcer. Patient declined colonoscopy but discussed possible when one in 2 months when she is feeling better 12/31/2017, voice hoarse and raspy but understandable, patient had insomnia last night and took Ambien for sleep, decreased O2 sat this morning now on 2 L nasal cannula. Labs showed stable hemoglobin 12.6, positive A DNA, DMSA negative, other labs pending. Elevated LFTs we will recheck in the morning for progress, this was possibly due to shock liver versus EtOH. No obvious GI bleeding noted ,C. difficile stool negative. Patient will need outpatient GI follow-up when she is stable to leave hospital PLAN -Diet heart healthy diet. Soft foods -Biopsies pending -PPI -Avoid NSAIDs, ASA, blood thinners -Viscous lidocaine for throat -Reflux precautions - liver w/u, labs pending - monitor labs, will recheck LFTs in a.m. -Encouraged alcohol abstinence -Supportive care pt seen by myself and Dr Romeo and this note is on his behalf (Jeanna Renteria) Physician Comments Patient seen and examined Agree with above Continue with current supportive care Monitor labs (Thaddeus Romeo MD) Jeanna Renteria December 31, 2017 14:10 Thaddeus Romeo MD December 31, 2017 15:01
[2017-12-31 15:19] LABS: ALPHA-1-ANTITRYPSIN 260 mg/dL (100 - 190)
[2017-12-31 18:31] LABS: HEMATOCRIT 39.3 % (35.0-46.0); HEMOGLOBIN 12.9 GM/DL (11.6-15.3); MEAN CELL VOLUME 93.5 FL (80.0-100.0); MEAN CORPUSCULAR HEMOGLOBIN 30.7 PG (27.0-34.0); MEAN CORPUSCULAR HGB CONC 32.9 % (32.0-36.0); MEAN PLATELET VOLUME 8.2 FL (7.0-11.0); PLATELET COUNT 140 TH/MM3 (150-450); RED BLOOD COUNT 4.21 MIL/MM3 (4.00-5.30); RED CELL DISTRIBUTION WIDTH 20.4 % (11.6-17.2); WHITE BLOOD COUNT 21.2 TH/MM3 (4.0-11.0)
[2017-12-31 18:43] LABS: INTERNATIONAL NORMALIZED RATIO 1.3 RATIO
[2017-12-31 18:55] LABS: AST (GOT) 86 U/L (15-37); BICARBONATE 25.4 MEQ/L (21.0-32.0); BLOOD UREA NITROGEN 23 MG/DL (7-18); CALCIUM 7.5 MG/DL (8.5-10.1); CHLORIDE 112 MEQ/L (98-107); CREATININE 0.82 MG/DL (0.50-1.00); GLOMERULAR FILTRATION RATE 68 ML/MIN (>89); GLUCOSE,RANDOM 131 MG/DL (74-106); SODIUM (NA) 144 MEQ/L (136-145)
[2017-12-31 19:06] LABS: ALKALINE PHOSPHATASE 94 U/L (45-117); ALT (GPT) 286 U/L (10-53); TOTAL BILIRUBIN ADULT 0.7 MG/DL (0.2-1.0); TOTAL PROTEIN 5.2 GM/DL (6.4-8.2)
[2017-12-31] MEDS: FLUTICASONE PROPIONATE 50 MCG/ACT 16 GM NASAL SPRAY EACH NARE SCH (21:47)
[2018-01-01 07:32] LABS: HEMATOCRIT 36.1 % (35.0-46.0); HEMOGLOBIN 11.9 GM/DL (11.6-15.3); MEAN CELL VOLUME 93.9 FL (80.0-100.0); MEAN PLATELET VOLUME 9.2 FL (7.0-11.0); PLATELET COUNT 141 TH/MM3 (150-450); RED BLOOD COUNT 3.84 MIL/MM3 (4.00-5.30); RED CELL DISTRIBUTION WIDTH 20.5 % (11.6-17.2); WHITE BLOOD COUNT 21.9 TH/MM3 (4.0-11.0)
[2018-01-01 07:34] LABS: INTERNATIONAL NORMALIZED RATIO 1.2 RATIO; PROTHROMBIN TIME - PATIENT 12.4 SEC (9.8-11.6)
[2018-01-01 08:00] VITALS: BP 125/69; PULSE 94; RESP 19; TEMP 97.9; O2SAT 90
[2018-01-01 08:03] LABS: BICARBONATE 26.5 MEQ/L (21.0-32.0); CALCIUM 7.4 MG/DL (8.5-10.1); CALCIUM-PROTEIN CORRECTED 8.7 MG/DL (8.5-10.1); CREATININE 0.81 MG/DL (0.50-1.00); DIRECT BILIRUBIN ADULT 0.2 MG/DL (0.0-0.2); TOTAL BILIRUBIN ADULT 0.7 MG/DL (0.2-1.0); TOTAL PROTEIN 4.8 GM/DL (6.4-8.2)
[2018-01-01 09:05] VITALS: O2SAT 95
[2018-01-01] MEDS: D5-1/2 NS + KCL 20 MEQ INJ 1,000 ML IV SCH (10:01)
[2018-01-01] MEDS: DOCUSATE SODIUM 50 MG/SENNA 8.6 MG TAB PO SCH ×2 (10:01→20:52)
[2018-01-01] MEDS: PROPRANOLOL HCL 20 MG TAB PO SCH ×2 (10:01→20:51)
[2018-01-01] MEDS: PANTOPRAZOLE SOD 40 MG DELAYED RELEASE TAB PO SCH ×2 (10:01→20:51)
[2018-01-01 12:00] VITALS: BP 112/69; PULSE 88; RESP 17; TEMP 96.7; O2SAT 94
--- NOTE | 2018-01-01 14:41 | HHI.GIFU ---
Subjective Remarks Pt is sitting up in bed, denies nausea, vomiting, abd pain or bleeding. (Jodi Garcia) Objective Vitals I&O Vital Signs Date Time Temp Pulse Resp B/P (MAP) Pulse Ox O2 Delivery O2 Flow Rate FiO2 01/01/18 12:00 96.7 88 17 112/69 (83) 94 01/01/18 09:05 95 Nasal Cannula 2.50 01/01/18 08:00 97.9 94 19 125/69 (87) 90 12/31/17 20:00 98.0 93 18 107/73 (84) 96 12/31/17 16:10 98 Nasal Cannula 2.50 12/31/17 16:00 97.9 82 20 100/59 (73) 92 I/O 12/31/17 12/31/17 12/31/17 01/01/18 01/01/18 01/01/18 07:00 15:00 23:00 07:00 15:00 23:00 Intake Total 1300 ml 1480 ml 380 ml Output Total 300 ml Balance 1000 ml 1480 ml 380 ml Intake Oral 480 ml 380 ml IV Total 1300 ml 1000 ml Output Urine Total 300 ml # Voids 2 # Bowel Movements 2 3 Laboratory Laboratory Tests Test 12/31/17 18:20 01/01/18 05:17 White Blood Count 21.2 21.9 Red Blood Count 4.21 3.84 Hemoglobin 12.9 11.9 Hematocrit 39.3 36.1 Mean Corpuscular Volume 93.5 93.9 Mean Corpuscular Hemoglobin 30.7 31.0 Mean Corpuscular Hemoglobin Concent 32.9 33.0 Red Cell Distribution Width 20.4 20.5 Platelet Count 140 141 Mean Platelet Volume 8.2 9.2 Prothrombin Time 13.0 12.4 Prothromb Time International Ratio 1.3 1.2 Activated Partial Thromboplast Time 24.4 25.3 Blood Urea Nitrogen 23 21 Creatinine 0.82 0.81 Random Glucose 131 108 Total Protein 5.2 4.8 Albumin 2.0 2.0 Calcium Level 7.5 7.4 Alkaline Phosphatase 94 81 Aspartate Amino Transf (AST/SGOT) 86 77 Alanine Aminotransferase (ALT/SGPT) 286 233 Total Bilirubin 0.7 0.7 Sodium Level 144 145 Potassium Level 4.1 4.3 Chloride Level 112 111 Carbon Dioxide Level 25.4 26.5 Anion Gap 7 8 Estimat Glomerular Filtration Rate 68 69 Total Creatine Kinase 338 Creatine Kinase MB 8.2 Creatine Kinase MB % 2.4 Vancomycin Level Trough 20.0 Direct Bilirubin 0.2 Protein Corrected Calcium 8.7 Date/Time Source Procedure Growth Status 12/27/17 13:25 Blood Peripheral Aerobic Blood Culture - Final NO GROWTH IN 5 DAYS Complete 12/27/17 13:25 Blood Peripheral Anaerobic Blood Culture - Final NO GROWTH IN 5 DAYS Complete 12/29/17 21:35 Stool Stool Cryptosporidium Exam - Final NEGATIVE - NO CRYPTOSPORIDIUM ANTIGEN... Complete 12/29/17 21:35 Stool Stool Giardia Antigen (KASSIDY) - Final NEGATIVE - NO GIARDIA ANTIGEN DETECTE... Complete Physical Exam HEENT: normocephalic; atraumatic; no jaundice. Hoarse voice raspy but understandable NECK: Neck is supple CHEST: Diminished breath sounds in her bases, occasional mild expiratory wheeze CARDIAC: Regular rate and rhythm heart rate 76. ABDOMEN: Soft, round, nondistended, positive bowel sounds EXTREMITIES: No clubbing, cyanosis, or edema. SKIn thin dry turgor no rash; no jaundice. CONSOLE MANAGER: Awake, answering simple questions (Jodi Garcia) Assessment and Plan Plan ASSESSMENT - anemia - likely multifactorial. no obvious GIB - dysphagia - choking sensation if she does not eat "carefully and slowly". thin liquids and puree per COBBLER UPPER - odynophagia - duration 6 months, pain in ribs and sternal area when swallowing ?esophagitis - epigastric pain - unclear etiology, limited hx from pt, no further details - loose stool - reports of watery stool. pt unable to elaborate on this, says she alternates between diarrhea and constipation never had EGD or colonoscopy. CT suggestive poss colitis - elevated LFTs - likely shocked liver. pt admits 2 beers daily. will get liver w/u r/o other cause. - sepsis, DORIE per primary On 12/30 2017 patient had EGD, finding showed severe reflux esophagitis grade D which would explain her hoarseness, hiatal hernia and gastric ulcer. Patient declined colonoscopy but discussed possible when one in 2 months when she is feeling better 12/31/2017, voice hoarse and raspy but understandable, patient had insomnia last night and took Ambien for sleep, decreased O2 sat this morning now on 2 L nasal cannula. Labs showed stable hemoglobin 12.6, positive A DNA, DMSA negative, other labs pending. Elevated LFTs we will recheck in the morning for progress, this was possibly due to shock liver versus EtOH. No obvious GI bleeding noted ,C. difficile stool negative. Patient will need outpatient GI follow-up when she is stable to leave hospital (01/01) hh stable, no new complaints, LFTs cont. to trend down, Liver work up still pending, hepatitis panel negative, (+) ALFREDA, alpha 1 antitrypsin 260 PLAN -Diet heart healthy diet. Soft foods -Biopsies benign -PPI -Avoid NSAIDs, ASA, blood thinners - EGD in 2 months -Reflux precautions - liver w/u, labs pending - monitor labs -Encouraged alcohol abstinence -Supportive care pt seen by myself and Dr Romeo and this note is on his behalf (Jodi Garcia) Physician Comments Patient seen and examined Agree with above Continue with current supportive care Monitor labs (Thaddeus Romeo MD) Jodi Garcia January 01, 2018 14:41 Thaddeus Romeo MD January 01, 2018 19:35
[2018-01-01] MEDS ORDERED: Vancomycin Consult Pharmacy 1 EA OTHER SCH (14:45)
[2018-01-01] MEDS: VANCOMYCIN INJ 1,000 MG in SODIUM CHLOR 0.9% 250 ML INJ 250 ML IV SCH (15:14)
--- NOTE | 2018-01-01 15:49 | HHI.PR ---
Subjective Remarks The patient was resting comfortably. She requested sleeping medication. She said she has been having some congestion. She says she is very weak. She has been tolerating a diet. Discussed with nursing. Objective Vitals Vital Signs Date Time Temp Pulse Resp B/P (MAP) Pulse Ox O2 Delivery O2 Flow Rate FiO2 01/01/18 12:00 96.7 88 17 112/69 (83) 94 01/01/18 09:05 95 Nasal Cannula 2.50 01/01/18 08:00 97.9 94 19 125/69 (87) 90 12/31/17 20:00 98.0 93 18 107/73 (84) 96 12/31/17 16:10 98 Nasal Cannula 2.50 12/31/17 16:00 97.9 82 20 100/59 (73) 92 I/O 12/31/17 12/31/17 12/31/17 01/01/18 01/01/18 01/01/18 07:00 15:00 23:00 07:00 15:00 23:00 Intake Total 1300 ml 1480 ml 380 ml Output Total 300 ml Balance 1000 ml 1480 ml 380 ml Intake Oral 480 ml 380 ml IV Total 1300 ml 1000 ml Output Urine Total 300 ml # Voids 2 # Bowel Movements 2 3 Result Diagram: 01/01/18 0517 01/01/18516 Imaging Last Impressions Chest X-Ray 12/31/17 0000 Signed Impressions: CONCLUSION: Bibasilar infiltrates and effusions. Foot X-Ray 12/30/17 Signed Impressions: CONCLUSION: 1. Osteoarthritic change in the metatarsal tarsal joints and intertarsal joint s. 2. Osteopenia with no acute fracture. Extremity Arterial Study 12/30/17 Signed Impressions: CONCLUSION: 1. Normal range bilateral ankle-brachial indices. 2. Moderately diminished toe brachial index on the left consistent with small vessel disease. Lower Extremity Ultrasound 12/27/17 0000 Signed Impressions: Service Date/Time: Wednesday, December 27, 2017 17:23 - CONCLUSION: Normal examination. Maged Flores MD Head CT 12/27/17 0000 Signed Impressions: Service Date/Time: Wednesday, December 27, 2017 14:49 - CONCLUSION: No acute intracranial process Maged Flores MD Abdomen/Pelvis CT 12/27/17 0000 Signed Impressions: Service Date/Time: Wednesday, December 27, 2017 14:54 - CONCLUSION: 1. Nonspecific intestinal pattern with increased fluid accumulation and possible mild wall thickening. There is no significant distention or evidence of free air. 2. Small amount of free fluid in the pelvis. 3. Mildly distended gallbladder. 4. Mild right basilar airspace disease. 5. No evidence of hydronephrosis, free air, mass or lymphadenopathy. Juice Ramirez MD Objective Remarks GENERAL: Frail elderly female, sitting up in bed, no distress HEENT: Normocephalic. Atraumatic. Pupils equal, round, reactive, conjugate. Mucous membranes are dry NECK: Trachea is midline. There is no JVD. CHEST: Equal chest rise. Mild wheezing. CARDIOVASCULAR: Normal rate, regular rhythm appears sinus by telemetry. ABDOMEN: Soft, nontender, nondistended. No guarding. No hepatosplenomegaly. MUSCULOSKELETAL: Pulses 2+. No peripheral edema. NEUROLOGICAL: Awake and alert. Moves upper and lower extremities. Procedures 12/30 - EGD A/P Assessment and Plan Severe sepsis Leukocytosis/Bandemia. Was hypotensive on admission- now BP climbing up. C diff negative. CXR with bilateral infiltrates. - start IV vancomycin and Zosyn 01/01. - sputum culture. - follow CBC. Acute kidney injury/ Hypernatremia Likely from poor po- improved with hydration. - avoid nephrotoxins. - follow BMP. Dysphagia/Odynophaigia For 6 months with significant weight loss. GI consult appreciated. S/P EGD- severe esophagitis, gastric ulcer. - PPI. - outpt follow-up with GI. - ADAT. Severe acute protein calorie malnutrition S/t above. - dietitian consulted. Acute anemia No signs of GI bleed S/P EGD 12/30 as above. S/P blood transfusion 2 units on . - continue PPI - H and H stable, continue to monitor. Shock liver S/t acute presentation. Improving. - trend LFTs. Bilateral foot pain Hypersensitive and hyperemic on exam- very good pulses. ? Neuropathy. Podiatry consult appreciated. Imaging noted. - PT/ OT consult. - Podiatry following. PPx: SCDs Discharge Planning D/c to SNF when PNA improved Bimal Oleary DO January 01, 2018 15:49
[2018-01-01 16:00] VITALS: BP 143/81; PULSE 89; RESP 17; TEMP 97.5; O2SAT 93
[2018-01-01] MEDS: PIPERACIL-TAZO 4.5 GM PREMIX 100 ML IV SCH ×2 (16:43→20:52)
[2018-01-01 20:00] VITALS: BP 112/73; PULSE 95; RESP 18; TEMP 97.9; O2SAT 92
[2018-01-01] MEDS: FLUTICASONE PROPIONATE 50 MCG/ACT 16 GM NASAL SPRAY EACH NARE SCH (20:56)
[2018-01-01] MEDS ORDERED: ZOLPIDEM TARTRATE 5 MG TAB PO PRN (21:00)
[2018-01-02] VITALS (7 sets, daily range): BP systolic 117–149; BP diastolic 69–84; PULSE 90–104; RESP 17–21; TEMP 97.2–98.1; O2SAT 92–98
[2018-01-02] MEDS: PIPERACIL-TAZO 4.5 GM PREMIX 100 ML IV SCH ×4 (04:02→21:55)
[2018-01-02 04:33] LABS: HEMATOCRIT 38.6 % (35.0-46.0); HEMOGLOBIN 12.8 GM/DL (11.6-15.3); MEAN CELL VOLUME 94.6 FL (80.0-100.0); MEAN CORPUSCULAR HEMOGLOBIN 31.3 PG (27.0-34.0); MEAN CORPUSCULAR HGB CONC 33.1 % (32.0-36.0); MEAN PLATELET VOLUME 9.1 FL (7.0-11.0); PLATELET COUNT 192 TH/MM3 (150-450); RED BLOOD COUNT 4.08 MIL/MM3 (4.00-5.30); RED CELL DISTRIBUTION WIDTH 20.8 % (11.6-17.2); WHITE BLOOD COUNT 17.1 TH/MM3 (4.0-11.0)
[2018-01-02 04:50] LABS: INTERNATIONAL NORMALIZED RATIO 1.1 RATIO; PROTHROMBIN TIME - PATIENT 11.6 SEC (9.8-11.6)
[2018-01-02 04:57] LABS: ALT (GPT) 202 U/L (10-53); AST (GOT) 81 U/L (15-37); BICARBONATE 25.3 MEQ/L (21.0-32.0); BLOOD UREA NITROGEN 15 MG/DL (7-18); CALCIUM 7.7 MG/DL (8.5-10.1); CHLORIDE 109 MEQ/L (98-107); GLOMERULAR FILTRATION RATE 70 ML/MIN (>89); GLUCOSE,RANDOM 106 MG/DL (74-106); SODIUM (NA) 142 MEQ/L (136-145)
[2018-01-02 05:00] LABS: ALKALINE PHOSPHATASE 90 U/L (45-117); TOTAL BILIRUBIN ADULT 0.7 MG/DL (0.2-1.0); TOTAL PROTEIN 5.3 GM/DL (6.4-8.2)
[2018-01-02] MEDS: PROPRANOLOL HCL 20 MG TAB PO SCH ×2 (08:41→21:54)
[2018-01-02] MEDS: DOCUSATE SODIUM 50 MG/SENNA 8.6 MG TAB PO SCH ×2 (08:41→21:54)
[2018-01-02] MEDS: PANTOPRAZOLE SOD 40 MG DELAYED RELEASE TAB PO SCH ×2 (08:41→21:54)
--- NOTE | 2018-01-02 12:17 | RADRPT ---
EXAM DATE: 01/02/2018 12:11 PM EDT AGE/SEX: 72 years / Female INDICATIONS: Evaluate for pneumonia. Shortness of breath. CLINICAL DATA: This is the patient's subsequent encounter. Patient reports that signs and symptoms h ave been present for 2 months and indicates a pain score of 2/10. MEDICAL/SURGICAL HISTORY: Chronic obstructive pulmonary disease. Hypertension . None [place] [facility] [place]. . FINDINGS: There continues to be some bibasilar infiltrates and bilateral pleural effusions. These are not signi ficantly changed compared to the earlier study. There is some pulmonary venous congestion. The heart size is stable. The bony structures are stable. There is no pneumothorax. No significant changes are demonstrated. CONCLUSION: 1. There continues to be bibasilar infiltrates and bilateral effusions without significant change. 2. Pulmonary venous congestion. Electronically signed by: Hunter Mehta MD 01/02/2018 12:15 PM EDT
--- NOTE | 2018-01-02 12:25 | HHI.PR ---
Subjective Remarks The patient said that the Ambien was not strong enough. She was looking forward to going home soon after [place]. She said she was still very weak. She wanted to know why she had edema. She said that was what caused her to come to the hospital. Discussed with nursing. Objective Vitals Vital Signs Date Time Temp Pulse Resp B/P (MAP) Pulse Ox O2 Delivery O2 Flow Rate FiO2 01/02/18 08:00 97.2 96 17 121/80 (94) 98 01/02/18 04:20 Nasal Cannula 2.00 01/02/18 00:00 97.7 92 18 149/84 (105) 95 01/01/18 21:26 21 01/01/18 20:00 97.9 95 18 112/73 (86) 92 01/01/18 16:00 97.5 89 17 143/81 (101) 93 I/O 01/01/18 01/01/18 01/01/18 01/02/18 01/02/18 01/02/18 07:00 15:00 23:00 07:00 15:00 23:00 Intake Total 380 ml 1000 ml 750 ml 440 ml Balance 380 ml 1000 ml 750 ml 440 ml Intake Oral 380 ml 400 ml 240 ml IV Total 1000 ml 350 ml 200 ml # Voids 4 2 # Bowel Movements 2 2 Result Diagram: 01/02/18 0405 01/02/18 0405 Imaging Last Impressions Chest X-Ray 01/02/18 0000 Impressions: CONCLUSION: 1. There continues to be bibasilar infiltrates and bilateral effusions without significant change. 2. Pulmonary venous congestion. Foot X-Ray 12/30/17 Signed Impressions: CONCLUSION: 1. Osteoarthritic change in the metatarsal tarsal joints and intertarsal joint s. 2. Osteopenia with no acute fracture. Extremity Arterial Study 12/30/17 0000 Signed Impressions: CONCLUSION: 1. Normal range bilateral ankle-brachial indices. 2. Moderately diminished toe brachial index on the left consistent with small vessel disease. Lower Extremity Ultrasound 12/27/17 0000 Signed Impressions: Service Date/Time: Wednesday, December 27, 2017 17:23 - CONCLUSION: Normal examination. Maged Flores MD Head CT 12/27/17 0000 Signed Impressions: Service Date/Time: Wednesday, December 27, 2017 14:49 - CONCLUSION: No acute intracranial process Maged Flores MD Abdomen/Pelvis CT 12/27/17 0000 Signed Impressions: Service Date/Time: Wednesday, December 27, 2017 14:54 - CONCLUSION: 1. Nonspecific intestinal pattern with increased fluid accumulation and possible mild wall thickening. There is no significant distention or evidence of free air. 2. Small amount of free fluid in the pelvis. 3. Mildly distended gallbladder. 4. Mild right basilar airspace disease. 5. No evidence of hydronephrosis, free air, mass or lymphadenopathy. Juice Ramirez MD Objective Remarks GENERAL: Frail elderly female, sitting up in bed, no distress HEENT: Normocephalic. Atraumatic. Pupils equal, round, reactive, conjugate. Mucous membranes are dry NECK: Trachea is midline. There is no JVD. CHEST: Clear to auscultation bilaterally. CARDIOVASCULAR: Normal rate, regular rhythm appears sinus by telemetry. ABDOMEN: Soft, nontender, nondistended. No guarding. No hepatosplenomegaly. MUSCULOSKELETAL: Pulses 2+. 1-2+ peripheral edema. NEUROLOGICAL: Awake and alert. Moves upper and lower extremities. Procedures 12/30 - EGD A/P Assessment and Plan Severe sepsis Leukocytosis/Bandemia. Was hypotensive on admission- now BP climbing up. C diff negative. CXR with bilateral infiltrates. - started IV vancomycin and Zosyn 01/01. - sputum culture. - follow CBC. - Repeat chest x-ray. Acute kidney injury/ Hypernatremia Likely from poor po- improved with hydration. - avoid nephrotoxins. - follow BMP. Dysphagia/Odynophaigia For 6 months with significant weight loss. GI consult appreciated. S/P EGD- severe esophagitis, gastric ulcer. - PPI. - outpt follow-up with GI. - ADAT. Severe acute protein calorie malnutrition S/t above. - add Ensure with meals. Acute anemia No signs of GI bleed S/P EGD 12/30 as above. S/P blood transfusion 2 units on . - continue PPI - H and H stable, continue to monitor. Shock liver S/t acute presentation. Improving. - trend LFTs. Bilateral foot pain Hypersensitive and hyperemic on exam- very good pulses. ? Neuropathy. Podiatry consult appreciated. Imaging noted. - PT/ OT consult. - Podiatry following. Edema May be s/t poor nutrition status, shock liver or both. - check a BNP and echo. - compression stockings. PPx: SCDs; Lovenox Discharge Planning D/c to SNF in 1-2 days Bimal Oleary DO January 02, 2018 12:25
[2018-01-02] MEDS: ENOXAPARIN SODIUM 30 MG/0.3 ML SYRINGE SQ SCH (13:08)
--- NOTE | 2018-01-02 14:49 | HHI.GIFU ---
Subjective Remarks Patient's resting in the bed Carrying on with random conversation Denies any nausea or vomiting Denies alcohol is causing her any problems (Jeanna Renteria) Objective Vitals I&O Vital Signs Date Time Temp Pulse Resp B/P (MAP) Pulse Ox O2 Delivery O2 Flow Rate FiO2 01/02/18 12:00 97.8 90 17 117/78 (91) 94 01/02/18 08:00 97.2 96 17 121/80 (94) 98 01/02/18 04:20 Nasal Cannula 2.00 01/02/18 00:00 97.7 92 18 149/84 (105) 95 01/01/18 21:26 21 01/01/18 20:00 97.9 95 18 112/73 (86) 92 01/01/18 16:00 97.5 89 17 143/81 (101) 93 I/O 01/01/18 01/01/18 01/01/18 01/02/18 01/02/18 01/02/18 07:00 15:00 23:00 07:00 15:00 23:00 Intake Total 380 ml 1000 ml 750 ml 440 ml Balance 380 ml 1000 ml 750 ml 440 ml Intake Oral 380 ml 400 ml 240 ml IV Total 1000 ml 350 ml 200 ml # Voids 4 2 # Bowel Movements 2 2 Laboratory Laboratory Tests Test 01/02/18 04:05 White Blood Count 17.1 Red Blood Count 4.08 Hemoglobin 12.8 Hematocrit 38.6 Mean Corpuscular Volume 94.6 Mean Corpuscular Hemoglobin 31.3 Mean Corpuscular Hemoglobin Concent 33.1 Red Cell Distribution Width 20.8 Platelet Count 192 Mean Platelet Volume 9.1 Prothrombin Time 11.6 Prothromb Time International Ratio 1.1 Activated Partial Thromboplast Time 22.3 Blood Urea Nitrogen 15 Creatinine 0.80 Random Glucose 106 Total Protein 5.3 Albumin 2.0 Calcium Level 7.7 Alkaline Phosphatase 90 Aspartate Amino Transf (AST/SGOT) 81 Alanine Aminotransferase (ALT/SGPT) 202 Total Bilirubin 0.7 Sodium Level 142 Potassium Level 4.3 Chloride Level 109 Carbon Dioxide Level 25.3 Anion Gap 8 Estimat Glomerular Filtration Rate 70 Date/Time Source Procedure Growth Status 12/27/17 13:25 Blood Peripheral Aerobic Blood Culture - Final NO GROWTH IN 5 DAYS Complete 12/27/17 13:25 Blood Peripheral Anaerobic Blood Culture - Final NO GROWTH IN 5 DAYS Complete 12/29/17 21:35 Stool Stool Cryptosporidium Exam - Final NEGATIVE - NO CRYPTOSPORIDIUM ANTIGEN... Complete 12/29/17 21:35 Stool Stool Giardia Antigen (KASSIDY) - Final NEGATIVE - NO GIARDIA ANTIGEN DETECTE... Complete Imaging Last Impressions Chest X-Ray 01/02/18 Signed Impressions: CONCLUSION: 1. There continues to be bibasilar infiltrates and bilateral effusions without significant change. 2. Pulmonary venous congestion. Foot X-Ray 12/30/17 0000 Signed Impressions: CONCLUSION: 1. Osteoarthritic change in the metatarsal tarsal joints and intertarsal joint s. 2. Osteopenia with no acute fracture. Extremity Arterial Study 12/30/17 Signed Impressions: CONCLUSION: 1. Normal range bilateral ankle-brachial indices. 2. Moderately diminished toe brachial index on the left consistent with small vessel disease. Lower Extremity Ultrasound 12/27/17 Signed Impressions: Service Date/Time: Wednesday, December 27, 2017 17:23 - CONCLUSION: Normal examination. Maged Flores MD Head CT 12/27/17 0000 Signed Impressions: Service Date/Time: Wednesday, December 27, 2017 14:49 - CONCLUSION: No acute intracranial process Maged Flores MD Abdomen/Pelvis CT 12/27/17 0000 Signed Impressions: Service Date/Time: Wednesday, December 27, 2017 14:54 - CONCLUSION: 1. Nonspecific intestinal pattern with increased fluid accumulation and possible mild wall thickening. There is no significant distention or evidence of free air. 2. Small amount of free fluid in the pelvis. 3. Mildly distended gallbladder. 4. Mild right basilar airspace disease. 5. No evidence of hydronephrosis, free air, mass or lymphadenopathy. Juice Ramirez MD Physical Exam HEENT: normocephalic; atraumatic; no jaundice. Hoarseness subsided, talking understandable NECK: Neck is supple CHEST: Diminished breath sounds CARDIAC: Regular rate and rhythm ABDOMEN: Round, taut, nondistended, positive bowel sounds EXTREMITIES: No lower extremity edema. SKIn thin dry turgor no rash; no jaundice. HYPERION ADMINISTRATOR: Awake, answering simple questions, but random conversation not related to questions (Jeanna Renteria) Assessment and Plan Plan ASSESSMENT - anemia - likely multifactorial. no obvious GIB - dysphagia - choking sensation if she does not eat "carefully and slowly". thin liquids and puree per REELING OPERATOR - odynophagia - duration 6 months, pain in ribs and sternal area when swallowing ?esophagitis - epigastric pain - unclear etiology, limited hx from pt, no further details - loose stool - reports of watery stool. pt unable to elaborate on this, says she alternates between diarrhea and constipation never had EGD or colonoscopy. CT suggestive poss colitis - elevated LFTs - likely shocked liver. pt admits 2 beers daily. will get liver w/u r/o other cause. - sepsis, DORIE per primary On 12/30 2017 patient had EGD, finding showed severe reflux esophagitis grade D which would explain her hoarseness, hiatal hernia and gastric ulcer. Patient declined colonoscopy but discussed possible when one in 2 months when she is feeling better 12/31/2017, voice hoarse and raspy but understandable, patient had insomnia last night and took Ambien for sleep, decreased O2 sat this morning now on 2 L nasal cannula. Labs showed stable hemoglobin 12.6, positive A DNA, DMSA negative, other labs pending. Elevated LFTs we will recheck in the morning for progress, this was possibly due to shock liver versus EtOH. No obvious GI bleeding noted ,C. difficile stool negative. Patient will need outpatient GI follow-up when she is stable to leave hospital (01/01) hh stable, no new complaints, LFTs cont. to trend down, Liver work up still pending, hepatitis panel negative, (+) ALFREDA, alpha 1 antitrypsin 260 01/02, Biopsies benign. liver workup, ALFREDA positive, antismooth muscle ab negative , Hepatitis panel negative, other labs pending. Patient is answering simple questions but appears mildly confused or this may be her norm? Will check ammonia level Discussed and supported her with EtOH abstinence but patient is in total denial that alcohol is any of her problem and doubts that she has any liver disease. Supportive care PLAN -Diet heart healthy diet. -Check ammonia level -PPI -Avoid NSAIDs, ASA, blood thinners - EGD in 2 months -Reflux precautions - monitor labs -Supportive care pt seen by myself and Dr Romeo and this note is on his behalf (Jeanna Renteria) Physician Comments Patient seen and examined Agree with above Continue with current supportive care Monitor labs We will sign off (Thaddeus Romeo MD) Jeanna Renteria January 02, 2018 14:49 Thaddeus Romeo MD January 02, 2018 23:08
[2018-01-02] MEDS: VANCOMYCIN INJ 1,000 MG in SODIUM CHLOR 0.9% 250 ML INJ 250 ML IV SCH (15:44)
[2018-01-02] MEDS: ZOLPIDEM TARTRATE 5 MG TAB PO PRN (21:55)
[2018-01-02] MEDS: FLUTICASONE PROPIONATE 50 MCG/ACT 16 GM NASAL SPRAY EACH NARE SCH (22:00)
[2018-01-03] VITALS: BP 133/83; PULSE 95; RESP 22; TEMP 97.9; O2SAT 96
[2018-01-03] MEDS: PIPERACIL-TAZO 4.5 GM PREMIX 100 ML IV SCH ×4 (03:38→21:05)
[2018-01-03 03:49] LABS: MITOCHONDRIAL ABS LESS THAN 20.0 U (<=20.0)
[2018-01-03 05:55] LABS: HEMATOCRIT 37.1 % (35.0-46.0); HEMOGLOBIN 11.9 GM/DL (11.6-15.3); MEAN CELL VOLUME 95.5 FL (80.0-100.0); MEAN CORPUSCULAR HEMOGLOBIN 30.7 PG (27.0-34.0); MEAN CORPUSCULAR HGB CONC 32.1 % (32.0-36.0); MEAN PLATELET VOLUME 8.7 FL (7.0-11.0); PLATELET COUNT 166 TH/MM3 (150-450); RED BLOOD COUNT 3.88 MIL/MM3 (4.00-5.30); WHITE BLOOD COUNT 14.2 TH/MM3 (4.0-11.0)
[2018-01-03 06:06] LABS: INTERNATIONAL NORMALIZED RATIO 1.1 RATIO; PROTHROMBIN TIME - PATIENT 11.3 SEC (9.8-11.6)
[2018-01-03 06:36] LABS: ALBUMIN 1.8 GM/DL (3.4-5.0); BICARBONATE 24.7 MEQ/L (21.0-32.0); CALCIUM 7.4 MG/DL (8.5-10.1); CALCIUM-PROTEIN CORRECTED 8.6 MG/DL (8.5-10.1); CREATININE 0.7 MG/DL (0.50-1.00); MAGNESIUM 1.5 MG/DL (1.5-2.5); RANDOM VANCOMYCIN 17.7 COMMENT; TOTAL BILIRUBIN ADULT 0.8 MG/DL (0.2-1.0)
[2018-01-03 08:00] VITALS: BP 149/85; PULSE 99; RESP 17; TEMP 98; O2SAT 95
[2018-01-03] MEDS: DOCUSATE SODIUM 50 MG/SENNA 8.6 MG TAB PO SCH ×2 (08:58→21:00)
[2018-01-03] MEDS: PROPRANOLOL HCL 20 MG TAB PO SCH ×2 (08:58→21:05)
[2018-01-03] MEDS: PANTOPRAZOLE SOD 40 MG DELAYED RELEASE TAB PO SCH ×2 (08:58→21:05)
[2018-01-03 12:00] VITALS: BP 116/75; PULSE 91; RESP 17; TEMP 98.1; O2SAT 96
[2018-01-03] MEDS: ENOXAPARIN SODIUM 30 MG/0.3 ML SYRINGE SQ SCH (12:21)
[2018-01-03] MEDS: VANCOMYCIN INJ 1,000 MG in SODIUM CHLOR 0.9% 250 ML INJ 250 ML IV SCH (15:07)
--- NOTE | 2018-01-03 15:10 | HHI.PR ---
Subjective Remarks The patient said that she was still having shortness of breath. She believes her right leg is getting better in terms of swelling. She says she has a history of rheumatic fever. She denies a history of heart failure. Objective Vitals Vital Signs Date Time Temp Pulse Resp B/P (MAP) Pulse Ox O2 Delivery O2 Flow Rate FiO2 01/03/18 12:00 98.1 91 17 116/75 (89) 96 01/03/18 08:00 98.0 99 17 149/85 (106) 95 01/03/18 00:00 97.9 95 22 133/83 (100) 96 01/02/18 21:10 94 21 01/02/18 20:00 98.1 104 21 119/78 (92) 92 01/02/18 16:00 98.0 94 17 125/69 (87) 95 01/02/18 15:15 94 21 I/O 01/02/18 01/02/18 01/02/18 01/03/18 01/03/18 01/03/18 07:00 15:00 23:00 07:00 15:00 23:00 Intake Total 440 ml 100 ml 1648 ml 460 ml Output Total 700 ml Balance 440 ml 100 ml 1648 ml -240 ml Intake Oral 240 ml 1198 ml 360 ml IV Total 200 ml 100 ml 450 ml 100 ml Output Urine Total 700 ml # Voids 2 2 # Bowel Movements 2 1 0 Result Diagram: 01/03/18 0517 01/03/18 0517 Imaging Last Impressions Chest X-Ray 01/02/18 0000 Signed Impressions: CONCLUSION: 1. There continues to be bibasilar infiltrates and bilateral effusions without significant change. 2. Pulmonary venous congestion. Foot X-Ray 12/30/17 0000 Signed Impressions: CONCLUSION: 1. Osteoarthritic change in the metatarsal tarsal joints and intertarsal joint s. 2. Osteopenia with no acute fracture. Extremity Arterial Study 12/30/17 0000 Signed Impressions: CONCLUSION: 1. Normal range bilateral ankle-brachial indices. 2. Moderately diminished toe brachial index on the left consistent with small vessel disease. Lower Extremity Ultrasound 12/27/17 0000 Signed Impressions: Service Date/Time: Wednesday, December 27, 2017 17:23 - CONCLUSION: Normal examination. Maged Flores MD Head CT 12/27/17 0000 Signed Impressions: Service Date/Time: Wednesday, December 27, 2017 14:49 - CONCLUSION: No acute intracranial process Maged Flores MD Abdomen/Pelvis CT 12/27/17 0000 Signed Impressions: Service Date/Time: Wednesday, December 27, 2017 14:54 - CONCLUSION: 1. Nonspecific intestinal pattern with increased fluid accumulation and possible mild wall thickening. There is no significant distention or evidence of free air. 2. Small amount of free fluid in the pelvis. 3. Mildly distended gallbladder. 4. Mild right basilar airspace disease. 5. No evidence of hydronephrosis, free air, mass or lymphadenopathy. Juice Ramirez MD Objective Remarks GENERAL: No distress. HEENT: Normocephalic. Atraumatic. Pupils equal, round, reactive, conjugate. Mucous membranes are dry NECK: Trachea is midline. There is no JVD. CHEST: Clear to auscultation bilaterally. CARDIOVASCULAR: Normal rate, regular rhythm appears sinus by telemetry. ABDOMEN: Soft, nontender, nondistended. No guarding. No hepatosplenomegaly. MUSCULOSKELETAL: Pulses 2+. 1-2+ peripheral edema. NEUROLOGICAL: Awake and alert. Moves upper and lower extremities. Procedures 12/30 - EGD A/P Assessment and Plan Severe sepsis Leukocytosis/Bandemia. Was hypotensive on admission- now BP climbing up. C diff negative. CXR with bilateral infiltrates. - started IV vancomycin and Zosyn 01/01. - sputum culture. - follow CBC. Improving. Edema BNP elevated at 1391. - echo pending. - continue propranolol. Add ASA. - check a lipid profile. - hold off on diuresing as pt presented with renal failure. - compression stockings. - cardiology eval if needed. Acute kidney injury/ Hypernatremia Likely from poor po- improved with hydration. - avoid nephrotoxins. - follow BMP. Seems resolved. Dysphagia/Odynophaigia For 6 months with significant weight loss. GI consult appreciated. S/P EGD- severe esophagitis, gastric ulcer. - PPI. - outpt follow-up with GI. - ADAT. Severe acute protein calorie malnutrition S/t above. - add Ensure with meals. Acute anemia No signs of GI bleed S/P EGD 12/30 as above. S/P blood transfusion 2 units on 5/ 21. - continue PPI - H and H stable, continue to monitor. Shock liver S/t acute presentation. Improving. - trend LFTs. Improving. Bilateral foot pain Hypersensitive and hyperemic on exam- very good pulses. ? Neuropathy. Podiatry consult appreciated. Imaging noted. - PT/ OT consult. - Podiatry following. PPx: SCDs; Lovenox Discharge Planning Waiting on echo. Transition to PO antibiotics upon discharge. D/c to SNF in 1-2 days pending echo results and the need for cardiology. Bimal Oleary DO January 03, 2018 15:10
[2018-01-03 16:00] VITALS: BP 117/77; PULSE 91; RESP 17; TEMP 97.8; O2SAT 94
[2018-01-03 16:54] LABS: CHOLESTEROL/ HDL RATIO 6.07 RATIO; HDL CHOLESTEROL 18.1 MG/DL (40.0-60.0)
--- NOTE | 2018-01-03 17:53 | ECHRPT ---
Indication: HEART FAILURE CONCLUSIONS Normal left ventricular size. Wall thickness is normal. The left ventricular systolic function is low normal with an estimated ejection fraction in the rang e of 50- 55%. Mitral annular calcification is present. Aortic valve sclerosis is present. There is trace tricuspid valve regurgitation. BP: / HR: Rhythm: MEASUREMENTS (Male / Female) Normal Values Technical Quality: 2D ECHO LV Diastolic Diameter PLAX 4.0 cm 4.2 - 5.9 / 3.9 - 5.3 cm LV Systolic Diameter PLAX 3.1 cm IVS Diastolic Thickness 0.8 cm 0.6 - 1.0 / 0.6 - 0.9 cm LVPW Diastolic Thickness 0.7 cm 0.6 - 1.0 / 0.6 - 0.9 cm LV Relative Wall Thickness 0.4 DOPPLER TR Peak Velocity 187.0 cm/s TR Peak Gradient 14.0 mmHg FINDINGS LEFT VENTRICLE Normal left ventricular size. Wall thickness is normal. The left ventricular systolic function is low normal with an estimated ejection fraction in the rang e of 50- 55%. RIGHT VENTRICLE Normal right ventricular size and systolic function. LEFT ATRIUM The left atrial size is normal. RIGHT ATRIUM The right atrial size is normal. ATRIAL SEPTUM Normal atrial septal thickness without atrial level shunting by limited color doppler interrogation. AORTA The aortic root and proximal ascending aorta are normal in size on limited imaging. MITRAL VALVE Mitral annular calcification is present. AORTIC VALVE Aortic valve sclerosis is present. TRICUSPID VALVE There is trace tricuspid valve regurgitation. PULMONARY VALVE The pulmonary valve is not well visualized. VESSELS The inferior vena cava is normal in size. PERICARDIUM No pericardial effusion. William Linares MD, FACC, FSCAI (Electronically Signed) Final Date:03 Jan 2018 17:52
[2018-01-03 19:52] LABS: CERULOPLASMIN 30 mg/dL (18-53)
[2018-01-03 20:00] VITALS: BP 133/74; PULSE 97; RESP 19; TEMP 97.8; O2SAT 94
[2018-01-03] MEDS: FLUTICASONE PROPIONATE 50 MCG/ACT 16 GM NASAL SPRAY EACH NARE SCH (21:00)
[2018-01-03] MEDS: ZOLPIDEM TARTRATE 5 MG TAB PO PRN (21:05)
[2018-01-03] MEDS: traMADol HCL 50 MG TAB PO PRN (21:05)
[2018-01-04 04:00] VITALS: BP 138/88; PULSE 92; RESP 18; TEMP 97.5; O2SAT 95
[2018-01-04] MEDS: PIPERACIL-TAZO 4.5 GM PREMIX 100 ML IV SCH ×3 (04:07→18:29)
[2018-01-04 08:00] VITALS: BP 125/69; PULSE 104; RESP 18; TEMP 97.3; O2SAT 95
[2018-01-04] MEDS: PROPRANOLOL HCL 20 MG TAB PO SCH (09:52)
[2018-01-04] MEDS: PANTOPRAZOLE SOD 40 MG DELAYED RELEASE TAB PO SCH (09:52)
[2018-01-04] MEDS: DOCUSATE SODIUM 50 MG/SENNA 8.6 MG TAB PO SCH (09:52)
[2018-01-04] MEDS: traMADol HCL 50 MG TAB PO PRN (10:00)
[2018-01-04 12:00] VITALS: BP 133/92; PULSE 89; RESP 18; TEMP 97.1; O2SAT 93
[2018-01-04] MEDS: RESP: ALBUTEROL 2.5 MG/IPRATROPIUM 0.5 MG NEB (PRN) INH (12:39)
[2018-01-04] MEDS: ENOXAPARIN SODIUM 30 MG/0.3 ML SYRINGE SQ SCH (13:46)
[2018-01-04] MEDS ORDERED: TRAM50 PO (15:15)
[2018-01-04] MEDS ORDERED: AMBI5TAB PO (15:15)
[2018-01-04] MEDS ORDERED: FURO20TA PO (15:15)
[2018-01-04] MEDS ORDERED: PANT40TA3 PO (15:15)
[2018-01-04] MEDS ORDERED: DOXY100C PO (15:16)
--- NOTE | 2018-01-04 15:21 | HHI.DCPOC ---
Discharge Care Plan Diagnosis: (1) Acute diastolic heart failure (2) Septic shock (3) GI bleed (4) Anemia (5) Protein calorie malnutrition (6) Esophagitis (7) Gastric ulcer (8) DORIE (acute kidney injury) (9) Hypernatremia (10) PNA (pneumonia) Goals to Promote Your Health * To prevent worsening of your condition and complications * To maintain your health at the optimal level Directions to Meet Your Goals Take your medications as prescribed Follow your dietary instruction Follow activity as directed Keep your appointments as scheduled Take your immunizations and boosters as scheduled If your symptoms worsen call your PCP, if no PCP go to Urgent Care Center or Emergency Room Smoking is Dangerous to Your Health. Avoid second hand smoke Call the 24-hour hour crisis hotline for domestic abuse at Ilya Irizarry MD January 04, 2018 15:21
--- NOTE | 2018-01-04 15:47 | HHI.DS ---
Discharge Summary Admission Date December 27, 2017 at 16:39 Discharge Date: January 04, 2018 Admitting Diagnosis septic shock (1) Septic shock ICD Code: A41.9 - Sepsis, unspecified organism; R65.21 - Severe sepsis with septic shock Status: Acute (2) Esophagitis ICD Code: K20.9 - Esophagitis, unspecified (3) Gastric ulcer ICD Code: K25.9 - Gastric ulcer, unspecified as acute or chronic, without hemorrhage or perforation (4) Anemia ICD Code: D64.9 - Anemia, unspecified (5) Hypernatremia ICD Code: E87.0 - Hyperosmolality and hypernatremia (6) Protein calorie malnutrition ICD Code: E46 - Unspecified protein-calorie malnutrition (7) Acute diastolic heart failure ICD Code: I50.31 - Acute diastolic (congestive) heart failure (8) DORIE (acute kidney injury) ICD Code: N17.9 - Acute kidney failure, unspecified (9) PNA (pneumonia) ICD Code: J18.9 - Pneumonia, unspecified organism Procedures 12/30 - EGD Brief History - From Admission This is a 72-year-old female who presents from an assisted living center for altered mental status. Per her assisted living facility, she is more confused than her normal baseline. Per medical records, when EMS arrived she was disheveled and covered in feces. On my evaluation, the patient is quite conversant and pleasant, but very confused. She is only oriented to person. Is very difficult to get a history from her, as she continues to talk about eating chocolate Lava cake. Repeated attempts to elicit a history of present illness have been unsuccessful to obtain a clear recent medical history. She denies chest pain, shortness of breath, abdominal pain, nausea, vomiting. She does endorse being hungry. She denies fever or chills. Per the emergency room physician note she apparently endorsed pain in both of her feet times several weeks, but she does not complain of this when I asked. Review systems is essentially unobtainable due to her confusion. In the emergency department she was hypotensive and required 3 L crystalloid resuscitation to improve her hemodynamics. Laboratory evidence is significant for a leukocytosis with a white count of 16,000, hemoglobin 8.9, differential is significant for toxic vacuolization, toxic granulation, 39% band neutrophils. BMP demonstrates a sodium of 135, bicarb of 20, creatinine of 2.42 with an unknown baseline, AST ALT of 453 1/800, alk phos of 118, CK of 1259, and albumin of 2.4. Her lactate is 1.9. CT abdomen pelvis does not demonstrate any significant abnormalities other than generalized bowel wall edema as well as significant stool in the rectal vault. Critical care medicine is consulted to evaluate her apparent multiorgan system dysfunction in the setting of presumed severe sepsis with endorgan dysfunction secondary to an unknown primary source. CBC/BMP: 01/03/18 0517 01/03/18 0517 Significant Findings Laboratory Tests Test 01/02/18 04:05 01/02/18 19:55 01/03/18 05:17 White Blood Count 17.1 TH/MM3 (4.0-11.0) 14.2 TH/MM3 (4.0-11.0) Red Cell Distribution Width 20.8 % (11.6-17.2) 20.0 % (11.6-17.2) Activated Partial Thromboplast Time 22.3 SEC (24.3-30.1) Total Protein 5.3 GM/DL (6.4-8.2) 5.0 GM/DL (6.4-8.2) Albumin 2.0 GM/DL (3.4-5.0) 1.8 GM/DL (3.4-5.0) Calcium Level 7.7 MG/DL (8.5-10.1) 7.4 MG/DL (8.5-10.1) Aspartate Amino Transf (AST/SGOT) 81 U/L (15-37) 44 U/L (15-37) Alanine Aminotransferase (ALT/SGPT) 202 U/L (10-53) 136 U/L (10-53) Chloride Level 109 MEQ/L (98-107) Estimat Glomerular Filtration Rate 70 ML/MIN (>89) 82 ML/MIN (>89) B-Type Natriuretic Peptide 1391 PG/ML (0-100) Red Blood Count 3.88 MIL/MM3 (4.00-5.30) Cholesterol Level 110 MG/DL (120-200) HDL Cholesterol 18.1 MG/DL (40.0-60.0) Imaging Last Impressions Chest X-Ray 01/02/18 Signed Impressions: CONCLUSION: 1. There continues to be bibasilar infiltrates and bilateral effusions without significant change. 2. Pulmonary venous congestion. Foot X-Ray 12/30/17 Signed Impressions: CONCLUSION: 1. Osteoarthritic change in the metatarsal tarsal joints and intertarsal joint s. 2. Osteopenia with no acute fracture. Extremity Arterial Study 12/30/17 Signed Impressions: CONCLUSION: 1. Normal range bilateral ankle-brachial indices. 2. Moderately diminished toe brachial index on the left consistent with small vessel disease. Lower Extremity Ultrasound 12/27/17 Signed Impressions: Service Date/Time: Wednesday, December 27, 2017 17:23 - CONCLUSION: Normal examination. Maged Flores MD Head CT 12/27/17 Signed Impressions: Service Date/Time: Wednesday, December 27, 2017 14:49 - CONCLUSION: No acute intracranial process Maged Flores MD Abdomen/Pelvis CT 12/27/17 Signed Impressions: Service Date/Time: Wednesday, December 27, 2017 14:54 - CONCLUSION: 1. Nonspecific intestinal pattern with increased fluid accumulation and possible mild wall thickening. There is no significant distention or evidence of free air. 2. Small amount of free fluid in the pelvis. 3. Mildly distended gallbladder. 4. Mild right basilar airspace disease. 5. No evidence of hydronephrosis, free air, mass or lymphadenopathy. Juice Ramirez MD PE at Discharge GENERAL: No distress. HEENT: Normocephalic. Atraumatic. Pupils equal, round, reactive, conjugate. Mucous membranes are dry NECK: Trachea is midline. There is no JVD. CHEST: Clear to auscultation bilaterally. CARDIOVASCULAR: Normal rate, regular rhythm appears sinus by telemetry. ABDOMEN: Soft, nontender, nondistended. No guarding. No hepatosplenomegaly. MUSCULOSKELETAL: Pulses 2+. 1-2+ peripheral edema. NEUROLOGICAL: Awake and alert. Moves upper and lower extremities. Pt update on day of discharge The patient denies chest pain or shortness of breath, patient is a febrile. Denies nausea or vomiting. States she feels very weak. Pt Condition on Discharge: Stable Discharge Disposition: Discharge to SNF Discharge Time: > 30 minutes Discharge Instructions DIET: Follow Instructions for: Heart Healthy Diet Activities you can perform: Regular-No Restrictions, See Additionl Instruction Other Activity Instructions: OOB w assistance activities as per PT Follow up Referrals: PCP Follow-up - 2 Weeks New Medications: Doxycycline Hyclate (Doxycycline Hyclate) 100 Mg Cap 100 MG PO BID for Infection, #20 CAP 0 Refills Furosemide (Furosemide) 20 Mg Tab 20 MG PO BID@,18 for chf, #10 TAB Pantoprazole (Pantoprazole) 40 Mg Tab 40 MG PO Q12HR for esophagitis, #62 TAB Tramadol (Ultram) 50 Mg Tab 50 MG PO Q8H PRN for pain, #10 TAB Zolpidem (Ambien) 5 Mg Tab 10 MG PO HS PRN for insomnia, #10 TAB Ilya Irizarry MD January 04, 2018 15:47
[2018-01-04 16:00] VITALS: BP 105/71; PULSE 97; RESP 18; TEMP 97.1; O2SAT 94
[2018-01-04] MEDS ORDERED: FUROSEMIDE 20 MG TAB PO SCH (18:00)
[2018-01-05] MEDS ORDERED: PHARMACY ORDERED LAB ONE (14:45)
[2018-01-05 14:59] LABS: ANA PATTERN DIFFUSE
== END 2018-01-04 19:30 | DRG 871 ==
LOC: NEPE 12:57 → NEDA 16:39 → HIMN 18:05 → HCIS 12-28 21:27 → N07B 12-30 21:58
PROVIDERS: ADMIT Hospitalist; ATTEND Hospitalist
PROC: 0DB78ZX Excision of Stomach, Pylorus, Via Natural or Artificial Opening Endoscopic, Diagnostic (ICD-10-PCS; 2017-12-30)
PROC: 0DB58ZX Excision of Esophagus, Via Natural or Artificial Opening Endoscopic, Diagnostic (ICD-10-PCS; principal; 2017-12-30 12:15)
DX: A41.9 Sepsis, unspecified organism (principal); K72.00 Acute and subacute hepatic failure without coma; E43 Unspecified severe protein-calorie malnutrition; G93.41 Metabolic encephalopathy; N17.9 Acute kidney failure, unspecified; I50.31 Acute diastolic (congestive) heart failure; E87.0 Hyperosmolality and hypernatremia; J18.9 Pneumonia, unspecified organism; K22.10 Ulcer of esophagus without bleeding; I11.0 Hypertensive heart disease with heart failure; E87.2 Acidosis; M62.82 Rhabdomyolysis; E87.1 Hypo-osmolality and hyponatremia; E86.9 Volume depletion, unspecified; R13.10 Dysphagia, unspecified; E87.5 Hyperkalemia; M81.0 Age-related osteoporosis without current pathological fracture; R40.2412 Glasgow coma scale score 13-15, at arrival to emergency department; D64.9 Anemia, unspecified; R73.9 Hyperglycemia, unspecified; R65.20 Severe sepsis without septic shock; S92.911A Unspecified fracture of right toe(s), initial encounter for closed fracture; K21.0 Gastro-esophageal reflux disease with esophagitis; K44.9 Diaphragmatic hernia without obstruction or gangrene; K25.9 Gastric ulcer, unspecified as acute or chronic, without hemorrhage or perforation; R49.0 Dysphonia; R19.7 Diarrhea, unspecified; K59.00 Constipation, unspecified; M19.072 Primary osteoarthritis, left ankle and foot; F17.200 Nicotine dependence, unspecified, uncomplicated; Z88.5 Allergy status to narcotic agent
CPT/HCPCS: 36430; 70450; 71045; 73630; 74176; 80053; 80061; 80074; 80202; 81001; 82103; 82105; 82140; 82248; 82390; 82550; 82552; 82728; 82948; 83520; 83540; 83550; 83605; 83690; 83735; 83880; 84100; 85007; 85014; 85018; 85027; 85610; 85730; 86038; 86039; 86255; 86850; 86900; 86901; 86920; 87040; 87328; 87329; 87493; 87506; 88305; 88312; 93005; 93306; 93922; 93970; 94150; 94640; 94664; 94667; 94668; 96365; 96367; 96368; C9113; J0692; J1650; J2543; J3370; J3480; J7030; J7050; J7120; J7613; P9016

== ENCOUNTER 2018-05-15 11:18 | Inpatient (IN) ==
[2018-05-15] MEDS ORDERED: Sod Chloride 0.9% Inj 1,000 ML IV.SIG ONE (11:51)
[2018-05-15 12:06] LABS: Baso % (Auto) 0.1 % (0.0-2.0); Eos % (Auto) 0.2 % (0.0-4.0); Hematocrit 38.7 % (35.0-46.0); Lymph % (Auto) 5.3 % (9.0-44.0); Mean Corpuscular Hemoglobin 33.6 pg (27.0-34.0); Mean Corpuscular Volume 92.8 fL (80.0-100.0); Mean Platelet Volume 6.8 fL (7.0-11.0); Mono # (Auto) 0.9 th/mm3 (0.0-0.9); Mono % (Auto) 5.1 % (0.0-8.0); Neut # (Auto) 16.2 th/mm3 (1.8-7.7); Neut % (Auto) 89.3 % (16.0-70.0); Platelet Count 317 th/mm3 (150-450); Red Blood Count 4.17 mil/mm3 (4.00-5.30); Red Cell Distribution Width 15.8 % (11.6-17.2); White Blood Count 18.2 th/mm3 (4.0-11.0)
--- NOTE | 2018-05-15 12:06 | ED ---
HPI General Chief complaint: Back Pain/Injury Stated complaint: Back Pain Time Seen by Provider: 05/15/18 11:31 Source: patient and EMS Mode of arrival: EMS Limitations: no limitations History of Present Illness HPI narrative: Patient is a 73-year-old female that presents via EMS for the evaluation of lower back pain after a fall she sustained last night around 7pm. The patient states that she got up too quickly from the toilet and began to feel dizzy. She states that she proceeded to fall forward into the toilet hitting her ribs and twisting her back. She denies hitting her head. She denies loss of consciousness. The patient states that after the fall she was able to walk to her bed and she states she was unable to move from her bed at all last night. She says that she urinated on herself many times last night and she feels that she had to urinate every 10 minutes which she says is unusual for her. The patient reports her main concern right now is low back pain. She states that when she tries to move her pain is a 10/10 but when she lays still her pain is minimal. Upon review of symptoms the patient denies fever, chills, chest pain, shortness of breath, dizziness, nausea, or vomiting. The patient denies any numbness or tingling of the lower extremities. She denies any urinary burning, frequency, or urgency. Related Data Home Medications Medication Instructions Recorded Confirmed propranolol 60 mg PO BID 05/15/18 05/15/18 tramadol 200 mg PO TID 05/15/18 05/15/18 Allergies Allergy/AdvReac Type Severity Reaction Status Date / Time morphine Allergy Severe ANNAPHYLACT Verified 05/15/18 11:35 IC Opioids - Morphine Analogues Allergy Severe Anaphylaxis Verified 05/15/18 11:35 Opioids-Meperidine and Allergy Severe Anaphylaxis Verified 05/15/18 11:35 Related Opioids-Methadone and Related Allergy Severe Anaphylaxis Verified 05/15/18 11:35 Review of Systems ROS: all other systems reviewed are negative [facility] Medical History Medical History Chronic back pain (Acute) Hypertension (Acute) Surgical History Surgical History No history of previous surgery (Acute) Social History Social History Substance History: No History of Abuse Second Hand Smoke Exposure: No Smoking Status: Former smoker How Often Do You Have a Drink Containing Alcohol: 2 to 3 times a week Recent Travel in [facility] within the Last 8 Weeks: No Recent Out of Country Travel within the Last 8 Weeks: No Immunization History Tetanus Immunization: >5 Years Exam Narrative Exam Narrative: GENERAL: SKIN: Warm and dry. HEAD: Atraumatic. Normocephalic. EYES: Pupils equal and round. No scleral icterus. No injection or drainage. ENT: No nasal bleeding or discharge. Mucous membranes pink and moist. Tongue is midline. no uvula deviation. NECK: Trachea midline. No JVD. CARDIOVASCULAR: Regular rate and rhythm. RESPIRATORY: No accessory muscle use. Clear to auscultation. Breath sounds equal bilaterally. GASTROINTESTINAL: Abdomen soft, non-tender, nondistended. Hepatic and splenic margins not palpable. MUSCULOSKELETAL: Extremities without clubbing, cyanosis, or edema. No obvious deformities. Patient has pain with any movement of the lower back. Most of the pain appears to be on the lumbar spine but hard to assess as patient herself cannot really sit up without significant discomfort. She does appear to have full range of motion of the lower legs. Straight leg test is positive bilaterally with severe pain to her lower back. Patient does appear to have good sensation to the lower legs. Good capillary refills. 2+ pulses bilaterally. No obvious thoracic or cervical spine tenderness to palpation. Patient does have a producible pain on the left ribs with touch. NEUROLOGICAL: Awake and alert. No obvious cranial nerve deficits. Motor grossly within normal limits. Five out of 5 muscle strength in the arms and legs. Normal speech. PSYCHIATRIC: Appropriate mood and affect; insight and judgment normal. Course Initial Documented Vital Signs Temperature 98.4 F 05/15/18 11:22 Pulse Rate 121 H 05/15/18 11:22 Respiratory Rate 18 05/15/18 11:22 Blood Pressure 161/113 H 05/15/18 11:22 Pulse Oximetry 94 L 05/15/18 11:22 Last Documented Vital Signs Temperature 98.4 F 05/15/18 11:22 Pulse Rate 101 H 05/15/18 16:45 Respiratory Rate 18 05/15/18 16:45 Blood Pressure 179/106 H 05/15/18 16:45 Pulse Oximetry 94 L 05/15/18 16:45 Medical Decision Making KIMBERLEY Attestation KIMBERLEY supervised visit: Yes Attestation: I, Dr. Mast have reviewed the advance practice practitioner's documentation and am in agreement, met with the patient face to face, made the diagnosis, and the medical decision making was done by me. *My assessment and Findings: Pt has Lumbar vertebral fx. Admission for management by neurosurgery. Appropriate tenderness present on exam in the region of the back. Hip flexion extension normal bilaterally. Abdomen soft nontender. MDM Narrative Medical decision making narrative: 73-year-old female that presents to the ED for evaluation of lower back pain after fall. Patient was properly examined and was found to have signs and symptoms concerning for fracture and possible UTI. Labs and imaging were ordered. Labs and imaging were positive for what appears to be a significant L1 compression fracture. Urine was negative for acute disease. Patient does have an elevated white. Otherwise unremarkable exam. She does appear to get good pulses and good sensation on the lower extremities. No obvious neurological deficits. She does have severe pain with any movement of the back. Case discussed with Dr. Hart for neurosurgery who will come here and see the patient. Patient was put on LSO. Pain management will be given. Patient could potentially have surgery but unclear at this time. She does appear to be open to the possibility. This time recommendations for admission for further evaluation of the fracture as well as pain control and likely physical therapy should. She lives alone and she will and do well even if she does not have surgery. Case discussed with Dr. Cao who agrees admission to her service. Medical Screen Exam Complete: Yes Emergency Medical Condition: Yes Differential Diagnosis Differential Diagnosis: Fracture versus bruise versus contusion versus mechanical fall versus syncope versus presyncope versus UTI Medical Records Medical records reviewed: Yes I reviewed the patient's medical records. Lab Data Lab results reviewed: Yes I reviewed the patient's lab results. Lab results narrative: UA negative for UTI Result diagrams: 05/15/18 11:50 05/15/18 11:50 Lab Results 05/15/18 05/15/18 05/15/18 Range/Units 11:50 11:50 11:50 WBC 18.2 H (4.0-11.0) th/mm3 RBC 4.17 (4.00-5.30) mil/mm3 Hgb 14.0 (11.6-15.3) gm/dL Hct 38.7 (35.0-46.0) % MCV 92.8 (80.0-100.0) fL MCH 33.6 (27.0-34.0) pg MCHC 36.2 H (32.0-36.0) % RDW 15.8 (11.6-17.2) % Plt Count 317 (150-450) th/mm3 MPV 6.8 L (7.0-11.0) fL Prelim Diff (Auto) Slide review pending Neut % (Auto) 89.3 H (16.0-70.0) % Lymph % (Auto) 5.3 L (9.0-44.0) % Hall % (Auto) 5.1 (0.0-8.0) % Eos % (Auto) 0.2 (0.0-4.0) % Baso % (Auto) 0.1 (0.0-2.0) % Neut # (Auto) 16.2 H (1.8-7.7) th/mm3 Lymph # (Auto) 1.0 (1.0-4.8) th/mm3 Hall # (Auto) 0.9 (0.0-0.9) th/mm3 Eos # (Auto) 0.0 (0.0-0.4) th/mm3 Baso # (Auto) 0.0 (0.0-0.2) th/mm3 WBC Differential Manual diff final Seg Neuts % (Manual) 78 H (16-70) % Band Neuts % (Manual) 11 H (0-6) % Lymphocytes % (Manual) 7 L (9-44) % Monocytes % (Manual) 3 (0-8) % Metamyelocytes % (Man) 1 (0-1) % Abs Neuts (Manual) 16.4 H (1.8-7.7) th/mm3 Differential Comment . Platelet Estimate Normal (Normal) Platelet Morphology Normal (Normal) Sodium 137 (136-145) meq/L Potassium 4.2 (3.5-5.1) meq/L Chloride 99 (98-107) meq/L Carbon Dioxide 25.3 (21.0-32.0) meq/L Anion Gap 13 (5-15) meq/L BUN 10 (7-18) mg/dL Creatinine 0.70 (0.50-1.00) mg/dL Estimated GFR 82 L (>89) mL/min Random Glucose 80 (74-106) mg/dL Lactic Acid (0.4-2.0) mmol/L Calcium 8.7 (8.5-10.1) mg/dL Total Bilirubin 1.3 H (0.2-1.0) mg/dL AST 16 (15-37) U/L ALT 23 (10-53) U/L Alkaline Phosphatase 59 (45-117) U/L Troponin I Less than 0.02 L (0.02-0.05) ng/mL B-Natriuretic Peptide 80 (0-100) pg/mL Total Protein 7.6 (6.4-8.2) g/dL Albumin 3.8 (3.4-5.0) g/dL Lipase 54 L (73-393) U/L Urine Color (Yellw/Straw) Urine Clarity (Clear) Urine pH (5.0-8.5) Ur Specific Benton (1.002-1.035) Urine Protein (Neg-Trace) mg/dL Urine Glucose (UA) (Negative) mg/dL Urine Ketones (Negative) mg/dL Urine Occult Blood (Negative) Urine Nitrate (Negative) Urine Bilirubin (Negative) Urine Urobilinogen (Less than 2) mg/dL Ur Leukocyte Esterase (Negative) Urine RBC (0-3) /hpf Urine WBC (0-5) /hpf Micro UA Comment Ur Microscopic Review Urine Culture Comments Urine Opiates Screen (Neg) Ur Barbiturates Screen (Neg) Ur Amphetamines Screen (Neg) U Benzodiazepines Scrn (Neg) Urine Cocaine Screen (Neg) U Cannabinoids Screen (Neg) Serum Alcohol (0-5) mg/dL 05/15/18 05/15/18 05/15/18 Range/Units 11:50 12:25 12:25 WBC (4.0-11.0) th/mm3 RBC (4.00-5.30) mil/mm3 Hgb (11.6-15.3) gm/dL Hct (35.0-46.0) % MCV (80.0-100.0) fL MCH (27.0-34.0) pg MCHC (32.0-36.0) % RDW (11.6-17.2) % Plt Count (150-450) th/mm3 MPV (7.0-11.0) fL Prelim Diff (Auto) Neut % (Auto) (16.0-70.0) % Lymph % (Auto) (9.0-44.0) % Hall % (Auto) (0.0-8.0) % Eos % (Auto) (0.0-4.0) % Baso % (Auto) (0.0-2.0) % Neut # (Auto) (1.8-7.7) th/mm3 Lymph # (Auto) (1.0-4.8) th/mm3 Hall # (Auto) (0.0-0.9) th/mm3 Eos # (Auto) (0.0-0.4) th/mm3 Baso # (Auto) (0.0-0.2) th/mm3 WBC Differential Seg Neuts % (Manual) (16-70) % Band Neuts % (Manual) (0-6) % Lymphocytes % (Manual) (9-44) % Monocytes % (Manual) (0-8) % Metamyelocytes % (Man) (0-1) % Abs Neuts (Manual) (1.8-7.7) th/mm3 Differential Comment Platelet Estimate (Normal) Platelet Morphology (Normal) Sodium (136-145) meq/L Potassium (3.5-5.1) meq/L Chloride (98-107) meq/L Carbon Dioxide (21.0-32.0) meq/L Anion Gap (5-15) meq/L BUN (7-18) mg/dL Creatinine (0.50-1.00) mg/dL Estimated GFR (>89) mL/min Random Glucose (74-106) mg/dL Lactic Acid 3.0 H (0.4-2.0) mmol/L Calcium (8.5-10.1) mg/dL Total Bilirubin (0.2-1.0) mg/dL AST (15-37) U/L ALT (10-53) U/L Alkaline Phosphatase (45-117) U/L Troponin I (0.02-0.05) ng/mL B-Natriuretic Peptide (0-100) pg/mL Total Protein (6.4-8.2) g/dL Albumin (3.4-5.0) g/dL Lipase (73-393) U/L Urine Color Yellow (Yellw/Straw) Urine Clarity Clear (Clear) Urine pH 7.0 (5.0-8.5) Ur Specific Benton 1.010 (1.002-1.035) Urine Protein Negative (Neg-Trace) mg/dL Urine Glucose (UA) Negative (Negative) mg/dL Urine Ketones 20 (Negative) mg/dL Urine Occult Blood Negative (Negative) Urine Nitrate Negative (Negative) Urine Bilirubin Negative (Negative) Urine Urobilinogen Less than 2 (Less than 2) mg/dL Ur Leukocyte Esterase Negative (Negative) Urine RBC Less than 1 (0-3) /hpf Urine WBC 1 (0-5) /hpf Micro UA Comment Cath-culture not ind Ur Microscopic Review Not Reportable Urine Culture Comments Cath-cult not ind Urine Opiates Screen (Neg) Ur Barbiturates Screen (Neg) Ur Amphetamines Screen (Neg) U Benzodiazepines Scrn (Neg) Urine Cocaine Screen (Neg) U Cannabinoids Screen (Neg) Serum Alcohol Less than 3 (0-5) mg/dL 05/15/18 Range/Units 12:25 WBC (4.0-11.0) th/mm3 RBC (4.00-5.30) mil/mm3 Hgb (11.6-15.3) gm/dL Hct (35.0-46.0) % MCV (80.0-100.0) fL MCH (27.0-34.0) pg MCHC (32.0-36.0) % RDW (11.6-17.2) % Plt Count (150-450) th/mm3 MPV (7.0-11.0) fL Prelim Diff (Auto) Neut % (Auto) (16.0-70.0) % Lymph % (Auto) (9.0-44.0) % Hall % (Auto) (0.0-8.0) % Eos % (Auto) (0.0-4.0) % Baso % (Auto) (0.0-2.0) % Neut # (Auto) (1.8-7.7) th/mm3 Lymph # (Auto) (1.0-4.8) th/mm3 Hall # (Auto) (0.0-0.9) th/mm3 Eos # (Auto) (0.0-0.4) th/mm3 Baso # (Auto) (0.0-0.2) th/mm3 WBC Differential Seg Neuts % (Manual) (16-70) % Band Neuts % (Manual) (0-6) % Lymphocytes % (Manual) (9-44) % Monocytes % (Manual) (0-8) % Metamyelocytes % (Man) (0-1) % Abs Neuts (Manual) (1.8-7.7) th/mm3 Differential Comment Platelet Estimate (Normal) Platelet Morphology (Normal) Sodium (136-145) meq/L Potassium (3.5-5.1) meq/L Chloride (98-107) meq/L Carbon Dioxide (21.0-32.0) meq/L Anion Gap (5-15) meq/L BUN (7-18) mg/dL Creatinine (0.50-1.00) mg/dL Estimated GFR (>89) mL/min Random Glucose (74-106) mg/dL Lactic Acid (0.4-2.0) mmol/L Calcium (8.5-10.1) mg/dL Total Bilirubin (0.2-1.0) mg/dL AST (15-37) U/L ALT (10-53) U/L Alkaline Phosphatase (45-117) U/L Troponin I (0.02-0.05) ng/mL B-Natriuretic Peptide (0-100) pg/mL Total Protein (6.4-8.2) g/dL Albumin (3.4-5.0) g/dL Lipase (73-393) U/L Urine Color (Yellw/Straw) Urine Clarity (Clear) Urine pH (5.0-8.5) Ur Specific Benton (1.002-1.035) Urine Protein (Neg-Trace) mg/dL Urine Glucose (UA) (Negative) mg/dL Urine Ketones (Negative) mg/dL Urine Occult Blood (Negative) Urine Nitrate (Negative) Urine Bilirubin (Negative) Urine Urobilinogen (Less than 2) mg/dL Ur Leukocyte Esterase (Negative) Urine RBC (0-3) /hpf Urine WBC (0-5) /hpf Micro UA Comment Ur Microscopic Review Urine Culture Comments Urine Opiates Screen Neg (Neg) Ur Barbiturates Screen Neg (Neg) Ur Amphetamines Screen Neg (Neg) U Benzodiazepines Scrn Neg (Neg) Urine Cocaine Screen Neg (Neg) U Cannabinoids Screen Neg (Neg) Serum Alcohol (0-5) mg/dL Imaging Data Attestation: I personally reviewed and interpreted this imaging study as follows : Radiologist's impression: Chest X-Ray 05/15/18 11:52 CONCLUSION: Hyperinflated lungs. Head CT 05/15/18 11:52 CONCLUSION: No acute intracranial abnormality is seen. . Lumbar Spine CT 05/15/18 11:52 CONCLUSION: 1. New compression deformity at L1 with significant loss of height centrally. There is posterior angulation of the posterior superior and inferior margins of the L1 vertebral body causing mild impressions on thecal sac. 2. Chronic compression deformity at L3 with some posterior angulation the posterior superior aspect of L3 causing a moderate impression on the thecal sac. 3. Mild compression deformity at the superior aspect of the L4 vertebral body. This was present previously. Chest CT 05/15/18 13:18 CONCLUSION: 1. The lung carlisle are hyperaerated. No focal or acute intrathoracic disease is demonstrated. There is some minimal atelectasis versus scarring in the right lung base. 2. Osteopenia and degenerative changes are seen throughout the bony structures. There are several old appearing wedge compression injuries involving the thoracic spine including T4, T5, T7 and T8. ECG Data Attestation: I personally reviewed and interpreted this ECG as follows: Interpretation: EKG shows sinus tachycardia but no sign of acute ischemia and arrhythmia. Ventricular rate of 102, [place] interval 140 ms. Discharge Plan Discharge Disposition Patient Disposition: 30 Still Patient Discharge Details Diagnosis: Compression fracture of lumbar vertebra Physicians Team ED Provider: Danny Mast ED Midlevel Provider: Reji Pastor Primary Care Provider: Juice Camacho Attending Provider: Mary Cao Other Providers: Fredy Hart Status ED Status: Admitted Patient
[2018-05-15 12:09] LABS: Mean Corpuscular HGB Conc 36.2 % (32.0-36.0)
[2018-05-15 12:21] LABS: Alanine Aminotransferase 23 U/L (10-53); Albumin 3.8 g/dL (3.4-5.0); Anion Gap 13 meq/L (5-15); Aspartate Aminotransferase 16 U/L (15-37); Blood Urea Nitrogen 10 mg/dL (7-18); Calcium 8.7 mg/dL (8.5-10.1); Carbon Dioxide 25.3 meq/L (21.0-32.0); Chloride 99 meq/L (98-107); Glomerular Filtration Rate 82 mL/min (>89); Glucose,Random 80 mg/dL (74-106); Lipase 54 U/L (73-393); Potassium 4.2 meq/L (3.5-5.1); Sodium 137 meq/L (136-145)
[2018-05-15] MEDS ORDERED: HYDROmorphone PF Inj 2 MG/ML Vial IV.PUSH ONE (12:22)
[2018-05-15 12:25] LABS: Alkaline Phosphatase 59 U/L (45-117); Total Protein 7.6 g/dL (6.4-8.2)
--- NOTE | 2018-05-15 12:34 | XR ---
EXAM DATE: 05/15/2018 11:52 AM EDT AGE/SEX: 73 years / Female INDICATIONS: Chest pain and shortness of breath. CLINICAL DATA: This is the patient's initial encounter. Patient reports that signs and symptoms have been present for 1 day and indicates a pain score of 3/10. MEDICAL/SURGICAL HISTORY: Chronic obstructive pulmonary disease. Hypertension. None. COMPARISON: . FINDINGS: The heart size is normal. The lungs appear hyperinflated. The lungs do appear clear. There is loss of height at T7 and T8. CONCLUSION: Hyperinflated lungs. Electronically signed by: Maged Monterroso MD 05/15/2018 12:33 PM EDT
[2018-05-15 12:36] LABS: Lymphocytes 7 % (9-44); Metamyelocytes 1 % (0-1); Monocytes 3 % (0-8); Platelet Estimate Normal (Normal); Platelet Morphology Normal (Normal)
--- NOTE | 2018-05-15 12:46 | CT ---
EXAM DATE: 05/15/2018 11:59 AM EDT AGE/SEX: 73 years / Female INDICATIONS: Trauma, fall. CLINICAL DATA: This is the patient's initial encounter. Patient reports that signs and symptoms have been present for 1 day and indicates a pain score of 8/10. MEDICAL/SURGICAL HISTORY: Hypertension. None. RADIATION DOSE: 66.37 CTDI (mGy) COMPARISON: Prior CT examination the head performed on 12/27/2017. TECHNIQUE: CT of the head without contrast. Using automated exposure control and adjustment of the mA and/or kV according to patient size, radiation dose was kept as low as reasonably achievable to ob tain optimal diagnostic quality images. DICOM format image data is available electronically for revi ew and comparison. FINDINGS: Cerebrum: The ventricles are normal for age. No evidence of midline shift, mass lesion, hemorrhage or acute infarction. No extraaxial fluid collections are seen. Posterior Fossa: The cerebellum and brainstem are intact. The 4th ventricle is midline. The cerebe llopontine angle is unremarkable. Extracranial: The visualized portion of the orbits is intact. Skull: The calvaria is intact. No evidence of skull fracture. CONCLUSION: No acute intracranial abnormality is seen. . Electronically signed by: Maged Monterroso MD 05/15/2018 12:45 PM EDT
--- NOTE | 2018-05-15 13:01 | CT ---
EXAM DATE: 05/15/2018 11:59 AM EDT AGE/SEX: 73 years / Female INDICATIONS: Trauma, fall. CLINICAL DATA: This is the patient's initial encounter. Patient reports that signs and symptoms have been present for 1 day and indicates a pain score of 8/10. MEDICAL/SURGICAL HISTORY: Hypertension. None. RADIATION DOSE: 17.08 CTDI (mGy) COMPARISON: . TECHNIQUE: Contiguous axial images were acquired with a multirow detector CT scanner without contras t. Multiplanar reconstructions in the sagittal and coronal plane were also performed. Using automate d exposure control and adjustment of the mA and/or kV according to patient size, radiation dose was k ept as low as reasonably achievable to obtain optimal diagnostic quality images. DICOM format image data is available electronically for review and comparison. FINDINGS: Vertebrae: There is a new compression deformity at L1. The central aspect of the L1 vertebral body h as lost significant height. There is a small area of no bone seen between the T12-L1 and L1-L2 disc l evels. There some remodeling with posterior angulation of the posterior superior aspect of the L1 case tebral body. There are chronic compression deformities at the superior aspect of L3 and L4. The compr ession deformity is more prominent at L3. The central aspect of L3 has lost over 50% of its original height. There is some remodeling with posterior angulation of the posterior superior aspect of the L3 vertebral body causing an impression on the images but the thecal sac. The L4 compression deformity is asymmetric and worse on the right side. The L4 vertebral body has lost less than half its height c entrally. Alignment: Normal. No subluxation. T12-L1: Again noted is the severe fracture deformity at the L1 vertebral body with posterior angulat ion the posterior superior aspect of the L1 vertebral body causing a mild impression on the adjustmen t of the thecal sac. The disc space is intact. The neural foramina are patent. L1-L2: Again noted is the posterior angulation of the posterior inferior aspect of the L1 vertebral body secondary to the fracture deformity causing a mild impression on the anterior aspect of the thec al sac. The neural foramina are patent bilaterally. L2-L3: Again noted is the posterior angulation of the posterior superior aspect of the L3 vertebral body secondary to the compression deformity at L3. This finding was present diffusely. This causes a moderate impression on the thecal sac. The neural foramina are patent bilaterally. L3-L4: There is minimal diffuse disc bulge without significant stenosis. There is a vacuum phenomeno n. The neural foramina are patent bilaterally. There is facet hypertrophy being worse on the right. L4-L5: There is minimal disc bulge without significant stenosis. There is a vacuum phenomenon. There is moderate facet hypertrophy. The neural foramina are patent bilaterally. L5-S1: Disc demonstrates decreased height. There is minimal bulging without significant stenosis. Ne uroforamina are patent bilaterally. There is mild facet facet hypertrophy. CONCLUSION: 1. New compression deformity at L1 with significant loss of height centrally. There is posterior ang ulation of the posterior superior and inferior margins of the L1 vertebral body causing mild impressi ons on thecal sac. 2. Chronic compression deformity at L3 with some posterior angulation the posterior superior aspect of L3 causing a moderate impression on the thecal sac. 3. Mild compression deformity at the superior aspect of the L4 vertebral body. This was present prev iously. Electronically signed by: Maged Monterroso MD 05/15/2018 12:59 PM EDT
[2018-05-15 13:17] LABS: Bilirubin,Urine Negative (Negative); Clarity,Urine Clear (Clear); Color,Urine Yellow (Yellw/Straw); Glucose,Urine (UA) Negative (Negative); Leukocyte Esterase,Urine Negative (Negative); Nitrite,Urine Negative (Negative)
[2018-05-15] MEDS ORDERED: Sod Chloride 0.9% Inj 1,000 ML IV.SIG SCH (13:45)
--- NOTE | 2018-05-15 15:12 | CT ---
EXAM DATE: 05/15/2018 2:53 PM EDT AGE/SEX: 73 years / Female INDICATIONS: Fall, hit chest CLINICAL DATA: This is the patient's initial encounter. Patient reports that signs and symptoms have been present for 1 day and indicates a pain score of 7/10. MEDICAL/SURGICAL HISTORY: Hypertension. None. RADIATION DOSE: 5.55 CTDI (mGy) COMPARISON: [facility], CHEST 1V SINGLE AP, 05/15/2018. . TECHNIQUE: Multiple contiguous axial images were obtained through the chest without contrast. Image s were obtained in suspended respiration using multiple row detector helical technique. Using automa isai exposure control and adjustment of the mA and/or kV according to patient size, radiation dose was kept as low as reasonably achievable to obtain optimal diagnostic quality images. DICOM format imag e data is available electronically for review and comparison. FINDINGS: Lungs: The lungs are symmetrically aerated. No infiltrates or suspicious nodular densities are seen . There is some minimal atelectasis versus scarring in the right lung base. It is hyperaeration of geraldine th lung carlisle. There is no evidence of pneumothorax. Mediastinum: There is good visualization of the great vessels of the middle mediastinum. No evidenc e of mediastinal or hilar adenopathy/mass. There are atherosclerotic changes in the thoracic aorta. N o significant aneurysmal dilatation. Pleurae: No evidence of focal thickening or pleural effusion. Axillae: Unremarkable. Bony Structures: There is osteopenia of the bony structures. The ribs are grossly intact. The sternu m is grossly intact. There are degenerative changes involving the thoracic spine. There is some chron ic appearing compression involving several thoracic vertebral bodies including T4, T5, T7, T8. No par aspinal soft tissue swelling is demonstrated. Compression injuries are also noted at L1 and L3. Miscellaneous: The examination was extended to include the upper abdomen, and both adrenal glands ar e normal in size and configuration. CONCLUSION: 1. The lung carlisle are hyperaerated. No focal or acute intrathoracic disease is demonstrated. There is some minimal atelectasis versus scarring in the right lung base. 2. Osteopenia and degenerative changes are seen throughout the bony structures. There are several ol d appearing wedge compression injuries involving the thoracic spine including T4, T5, T7 and T8. Electronically signed by: Hunter Mehta MD 05/15/2018 3:11 PM EDT
[2018-05-15] MEDS ORDERED: Haloperidol Inj 5 MG/ML Ampul IV.PUSH PRN (15:38)
--- NOTE | 2018-05-15 15:49 | P.HP ---
History of Present Illness Service: [facility] service Primary Care Physician: Juice Camacho Chief Complaint: s/p fall. low back pain History of Present Illness: patient is a very feisty 73 years old female , right handed history of depression, hypertension, chronic low back pain admits to non compliance with BP meds, states independent with ADLS who last night states she got up too fast from the toilet, got dizzy and fell and "twisted my bacK". she was able to crawl back to bed. This am- unable to get up and got hold of a friend by phone who called EMS and was brought in here for further evaluation. On evaluation noted to have L1 compression fracture baseline states she is independent states that she does have to get up slowly or gradually or else she tend to get dizzy denies any pain unless " I move or turn", no radiculopathy, no sensory deficits Inpatient Certification: I certify that the inpatient services were ordered in accordance with Medicare regulations governing the order. This includes certification that hospital inpatient services are reasonable and necessary and in the case of services not specified as inpatient-only under 42 CFR 419.22(n), that they are appropriately provided as inpatient services in accordance to with the 2-midnight benchmark under 43 CFR 412.3(e) Estimated Total Length of Stay (Days): 2 Plans for Post Hospital Care: Not yet determined [facility] - History History Provided By: Patient - Medical History Medical History: Medical History (Last Reviewed 05/21/18 @ 07:45 by Yesi Avila) Chronic back pain Hypertension - Surgical History Surgical History: Surgical History (Last Reviewed 05/19/18 @ 07:36 by Vincent Day) No history of previous surgery - Tobacco History Second Hand Smoke Exposure: No Smoking Status: Former smoker - Alcohol History How Often Do You Have a Drink Containing Alcohol: 2 to 3 times a week - Substance Use History Substance History: No History of Abuse - Travel History Recent Travel in the [place] Within the Last 8 Weeks: No Recent Travel Out of the Country Within the Last 8 Weeks: No - Immunization History Tetanus Immunization: >5 Years Medications and Allergies Active Medications: Active Medications Flumazenil (Romazecon Inj) 0.2 mg IV.PUSH Q1M PRN PRN Reason: OVERSEDATION Haloperidol Lactate (Haldol Inj) 1 mg IV.PUSH Q15M PRN PRN Reason: for severe agitation Sodium Chloride (Ns Inj) 1,000 mls @ 0 mls/hr IV.SIG BOLUS TREVOR Last Infusion: 05/15/18 15:33 Dose: Infused Lorazepam (Ativan Inj) 1 mg IV.PUSH Q4H PRN PRN Reason: for CIWA 8-10 Lorazepam (Ativan Inj) 2 mg IV.PUSH Q15M PRN PRN Reason: for CIWA > 20 Lorazepam (Ativan Inj) 2 mg IV.PUSH Q1H PRN PRN Reason: for CIWA 15-20 Lorazepam (Ativan Inj) 2 mg IV.PUSH Q2H PRN PRN Reason: for CIWA 11-14 Lorazepam (Ativan) 1 mg PO Q4H PRN PRN Reason: for CIWA 8-10 Lorazepam (Ativan) 2 mg PO Q2H PRN PRN Reason: for CIWA 11-14 Metoprolol Tartrate (Lopressor) 50 mg PO TID TREVOR Allergies Allergy/AdvReac Type Severity Reaction Status Date / Time morphine Allergy Severe ANNAPHYLACT Verified 05/15/18 11:35 IC Opioids - Morphine Analogues Allergy Severe Anaphylaxis Verified 05/15/18 11:35 Opioids-Meperidine and Allergy Severe Anaphylaxis Verified 05/15/18 11:35 Related Opioids-Methadone and Related Allergy Severe Anaphylaxis Verified 05/15/18 11:35 Home Medications Medication Instructions Recorded Confirmed Type lisinopril 20 mg PO DAILY 05/15/18 05/15/18 History Exam Vital signs: Vital Signs 05/15/18 11:22 05/15/18 11:40 05/15/18 14:17 Temperature 98.4 F Pulse Rate 121 H 116 H Respiratory Rate 18 18 18 Blood Pressure 161/113 H 163/107 H Pulse Oximetry 94 L 94 L 05/15/18 14:19 05/15/18 15:35 Temperature Pulse Rate 95 H 106 H Respiratory Rate 16 18 Blood Pressure 163/99 H 176/119 H Pulse Oximetry 94 L Intake & Output 05/14/18 05/15/18 05/15/18 18:59 06:59 18:59 Intake Total 1999 Balance 1999 Weight 49.895 kg Intake: IV 1999 NS Inj 1,000 ML @ Wide Open IV. 1999 SIG BOLUS TREVOR Rx#:[id number] Results - Labs CBC & Chem 7: 05/20/18 04:07 05/20/18 04:07 Labs: Laboratory Results - last 24 hr 05/15/18 05/15/18 05/15/18 11:50 11:50 11:50 WBC 18.2 H RBC 4.17 Hgb 14.0 Hct 38.7 MCV 92.8 MCH 33.6 MCHC 36.2 H RDW 15.8 Plt Count 317 MPV 6.8 L Prelim Diff (Auto) Slide review pending Neut % (Auto) 89.3 H Lymph % (Auto) 5.3 L Bacon % (Auto) 5.1 Eos % (Auto) 0.2 Baso % (Auto) 0.1 Neut # (Auto) 16.2 H Lymph # (Auto) 1.0 Bacon # (Auto) 0.9 Eos # (Auto) 0.0 Baso # (Auto) 0.0 WBC Differential Manual diff final Seg Neuts % (Manual) 78 H Band Neuts % (Manual) 11 H Lymphocytes % (Manual) 7 L Monocytes % (Manual) 3 Metamyelocytes % (Man) 1 Abs Neuts (Manual) 16.4 H Differential Comment . Platelet Estimate Normal Platelet Morphology Normal Sodium 137 Potassium 4.2 Chloride 99 Carbon Dioxide 25.3 Anion Gap 13 BUN 10 Creatinine 0.70 Estimated GFR 82 L Random Glucose 80 Lactic Acid Calcium 8.7 Total Bilirubin 1.3 H AST 16 ALT 23 Alkaline Phosphatase 59 Troponin I Less than 0.02 L B-Natriuretic Peptide 80 Total Protein 7.6 Albumin 3.8 Lipase 54 L Urine Color Urine Clarity Urine pH Ur Specific [employer] Urine Protein Urine Glucose (UA) Urine Ketones Urine Occult Blood Urine Nitrate Urine Bilirubin Urine Urobilinogen Ur Leukocyte Esterase Urine RBC Urine WBC Micro UA Comment Ur Microscopic Review Urine Culture Comments 05/15/18 05/15/18 12:25 12:25 WBC RBC Hgb Hct MCV MCH MCHC RDW Plt Count MPV Prelim Diff (Auto) Neut % (Auto) Lymph % (Auto) Bacon % (Auto) Eos % (Auto) Baso % (Auto) Neut # (Auto) Lymph # (Auto) Bacon # (Auto) Eos # (Auto) Baso # (Auto) WBC Differential Seg Neuts % (Manual) Band Neuts % (Manual) Lymphocytes % (Manual) Monocytes % (Manual) Metamyelocytes % (Man) Abs Neuts (Manual) Differential Comment Platelet Estimate Platelet Morphology Sodium Potassium Chloride Carbon Dioxide Anion Gap BUN Creatinine Estimated GFR Random Glucose Lactic Acid 3.0 H Calcium Total Bilirubin AST ALT Alkaline Phosphatase Troponin I B-Natriuretic Peptide Total Protein Albumin Lipase Urine Color Yellow Urine Clarity Clear Urine pH 7.0 Ur Specific [employer] 1.010 Urine Protein Negative Urine Glucose (UA) Negative Urine Ketones 20 Urine Occult Blood Negative Urine Nitrate Negative Urine Bilirubin Negative Urine Urobilinogen Less than 2 Ur Leukocyte Esterase Negative Urine RBC Less than 1 Urine WBC 1 Micro UA Comment Cath-culture not ind Ur Microscopic Review Not Reportable Urine Culture Comments Cath-cult not ind - Imaging Impressions Chest X-Ray 05/15/18 11:52 CONCLUSION: Hyperinflated lungs. Head CT 05/15/18 11:52 CONCLUSION: No acute intracranial abnormality is seen. . Lumbar Spine CT 05/15/18 11:52 CONCLUSION: 1. New compression deformity at L1 with significant loss of height centrally. There is posterior angulation of the posterior superior and inferior margins of the L1 vertebral body causing mild impressions on thecal sac. 2. Chronic compression deformity at L3 with some posterior angulation the posterior superior aspect of L3 causing a moderate impression on the thecal sac. 3. Mild compression deformity at the superior aspect of the L4 vertebral body. This was present previously. Chest CT 05/15/18 13:18 CONCLUSION: 1. The lung carl[place] are hyperaerated. No focal or acute intrathoracic disease is demonstrated. There is some minimal atelectasis versus scarring in the right lung base. 2. Osteopenia and degenerative changes are seen throughout the bony structures. There are several old appearing wedge compression injuries involving the thoracic spine including T4, T5, T7 and T8. Caprini VTE Risk Assessment Caprini VTE Risk Assessment: Moderate/High Risk (score >= 2) (awaiting neurosurgical evaluation- for lumbar fracture _ ? surgery) Caprini Risk Assessment Model: Point Value = 1 Point Value = 2 Point Value = 3 Point Value = 5 Age 41-60 Minor surgery BMI > 25 kg/m2 Swollen legs Varicose veins or History of unexplained or recurrent spontaneous Oral contraceptives or hormone replacement Sepsis (< 1 month) Serious lung disease, including pneumonia (< 1 month) Abnormal pulmonary function Acute myocardial infarction Congestive heart failure (< 1 month) History of inflammatory bowel disease Medical patient at bed rest Age 61-74 Arthroscopic surgery Major open surgery (> 45 min) Laparoscopic surgery (> 45 min) Malignancy Confined to bed (> 72 hours) Immobilizing plaster cast Central venous access Age >= 75 History of VTE Family history of VTE Factor V Leiden Prothrombin [id number] Lupus anticoagulant Anticardiolipin antibodies Elevated serum homocysteine Heparin-induced thrombocytopenia Other congenital or acquired thrombophilia Stroke (< 1 month) Elective arthroplasty Hip, pelvis, or leg fracture Acute spinal cord injury (< 1 month) Prophylaxis Regimen: Total Risk Factor Score Risk Level Prophylaxis Regimen 0-1 Low Early ambulation 2 Moderate Order ONE of the following: *Sequential Compression Device (SCD) *Heparin 5000 units SQ BID 3-4 Higher Order ONE of the following medications: *Heparin 5000 units SQ TID *Enoxaparin/Lovenox 40 mg SQ daily (WT < 150 kg, CrCl > 30 mL/min) *Enoxaparin/Lovenox 30 mg SQ daily (WT < 150 kg, CrCl > 10-29 mL/min) *Enoxaparin/Lovenox 30 mg SQ BID (WT < 150 kg, CrCl > 30 mL/min) AND/OR *Sequential Compression Device (SCD) 5 or more Highest Order ONE of the following medications: *Heparin 5000 units SQ TID (Preferred with Epidurals) *Enoxaparin/Lovenox 40 mg SQ daily (WT < 150 kg, CrCl > 30 mL/min) *Enoxaparin/Lovenox 30 mg SQ daily (WT < 150 kg, CrCl > 10-29 mL/min) *Enoxaparin/Lovenox 30 mg SQ BID (WT < 150 kg, CrCl > 30 mL/min) AND *Sequential Compression Device (SCD) Assessment and Plan - Plan 73 years old female S/P fall Acute Low back pain with L1 compression fracture deformity history of chronic back pain - neurosurgery consulted - prn pain meds- start Ultracet 1 tab po q 4 prn for pain Uncontrolled Hypertension - 12 L EKG, CXR reviewed-sinus tachycardia- no acute STTW changes,. CXR reviewd - states not taking meds for past 2 days since she cannot reach and walk due to pain - as OP on propranolol 60 mg bid and ? thinks she is Lisinorpil bid- will confirm dose - admits to non compliance - will start on Lopressor 50 mg po x 1 q 8 - clonidine 0.1 mg po q 6 prn with parameters ETOH use- monitor for DTs- patient talking a lot but a x ox 3 and slightly belligerent -placed on CIWA protocol - per report- house was filled with empty cans of beer and liquor bottle- vodka Leukoctyosis on labs- may be reactive Lactic acidemia likely from alcohol ketosis - UA + ketones - afebrile, UA, CXR negative, clinically no signs of active infection - recheck CBC, lactic acid level in am - gentle fluids - monitor T and for signs of infection - no antibiotics for now TEDs/SVDs for DVT prophylaxis
[2018-05-15 16:08] LABS: Amphetamine Screen,Urine Neg (Neg); Barbiturate Screen,Urine Neg (Neg); Cannabinoid Screen,Urine Neg (Neg); Cocaine Screen,Urine Neg (Neg)
[2018-05-15 16:09] LABS: Opiate Screen,Urine Neg (Neg)
[2018-05-15] MEDS ORDERED: Dextrose 5%/NaCl 0.9% Inj 1,000 ML IV.CONT SCH (17:00)
[2018-05-15] MEDS ORDERED: Metoprolol Tartrate 50 MG Tablet PO SCH (18:00)
[2018-05-15] MEDS: Metoprolol Tartrate 50 MG Tablet PO SCH (19:41)
--- NOTE | 2018-05-15 19:45 | P.CONNS ---
History of Present Illness Primary Care Provider: Juice Camacho Chief Complaint: s/p fall. low back pain History of Present Illness: 73yoF who fell and twisted her back. In pain, but more importantly upset her dinner is not here yet. Neurologically intact [facility] - History History Provided By: Patient - Medical History Medical History: Medical History (Last Reviewed 05/15/18 @ 12:05 by SIENNA Casas) Chronic back pain Hypertension - Surgical History Surgical History: Surgical History (Last Reviewed 05/15/18 @ 12:05 by SIENNA Casas) No history of previous surgery - Tobacco History Second Hand Smoke Exposure: No Smoking Status: Former smoker - Alcohol History How Often Do You Have a Drink Containing Alcohol: 2 to 3 times a week - Substance Use History Substance History: No History of Abuse - Travel History Recent Travel in the [facility] Within the Last 8 Weeks: No Recent Travel Out of the Country Within the Last 8 Weeks: No - Immunization History Tetanus Immunization: >5 Years Medications and Allergies Active Medications: Active Medications Clonidine HCl (Catapres) 0.1 mg PO Q6H PRN PRN Reason: SBP>160, DBP>90 Last Admin: 05/15/18 16:54 Dose: 0.1 mg Flumazenil (Romazecon Inj) 0.2 mg IV.PUSH Q1M PRN PRN Reason: OVERSEDATION Haloperidol Lactate (Haldol Inj) 1 mg IV.PUSH Q15M PRN PRN Reason: for severe agitation Sodium Chloride (Ns Inj) 1,000 mls @ 0 mls/hr IV.SIG BOLUS TREVOR Last Infusion: 05/15/18 15:33 Dose: Infused Dextrose/Sodium Chloride (D5w/Normal Saline Inj) 1,000 mls @ 42 mls/hr IV.CONT .[id number] TREVOR Last Admin: 05/15/18 17:19 Dose: 42 mls/hr Lorazepam (Ativan Inj) 1 mg IV.PUSH Q4H PRN PRN Reason: for CIWA 8-10 Lorazepam (Ativan Inj) 2 mg IV.PUSH Q15M PRN PRN Reason: for CIWA > 20 Lorazepam (Ativan Inj) 2 mg IV.PUSH Q1H PRN PRN Reason: for CIWA 15-20 Lorazepam (Ativan Inj) 2 mg IV.PUSH Q2H PRN PRN Reason: for CIWA 11-14 Lorazepam (Ativan) 1 mg PO Q4H PRN PRN Reason: for CIWA 8-10 Lorazepam (Ativan) 2 mg PO Q2H PRN PRN Reason: for CIWA 11-14 Last Admin: 05/15/18 18:48 Dose: 2 mg Metoprolol Tartrate (Lopressor) 50 mg PO TID [facility] Last Admin: 05/15/18 19:41 Dose: 50 mg Tramadol/Acetaminophen (Ultracet 37.5/325 Mg) 1 tab PO Q4H PRN PRN Reason: pain 4-10 Allergies Allergy/AdvReac Type Severity Reaction Status Date / Time morphine Allergy Severe ANNAPHYLACT Verified 05/15/18 11:35 IC Opioids - Morphine Analogues Allergy Severe Anaphylaxis Verified 05/15/18 11:35 Opioids-Meperidine and Allergy Severe Anaphylaxis Verified 05/15/18 11:35 Related Opioids-Methadone and Related Allergy Severe Anaphylaxis Verified 05/15/18 11:35 Home Medications Medication Instructions Recorded Confirmed Type lisinopril 20 mg PO DAILY 05/15/18 05/15/18 History propranolol 60 mg PO BID 05/15/18 05/15/18 History tramadol 200 mg PO TID 05/15/18 05/15/18 History Exam Vital signs: Vital Signs 05/15/18 11:22 05/15/18 11:40 05/15/18 14:17 Temperature 98.4 F Pulse Rate 121 H 116 H Respiratory Rate 18 18 18 Blood Pressure 161/113 H 163/107 H Pulse Oximetry 94 L 94 L 05/15/18 14:19 05/15/18 15:35 05/15/18 16:45 Temperature Pulse Rate 95 H 106 H 101 H Respiratory Rate 16 18 18 Blood Pressure 163/99 H 176/119 H 179/106 H Pulse Oximetry 94 L 94 L Intake & Output 05/15/18 05/15/18 05/16/18 06:59 18:59 06:59 Intake Total 1999 Balance 1999 Weight 49.895 kg Intake: IV 1999 NS Inj 1,000 ML @ Wide Open IV. 1999 SIG BOLUS [facility] Rx#:[id number] Narrative: a&o x 3 CN ii-xii intact motor 5/5 UE/LE including hip flexors, dorsiflexors/plantarflexors intact sensation throughout endorses back pain Results - Laboratory Findings CBC and BMP: 05/15/18 11:50 05/15/18 11:50 Abnormal lab findings: Abnormal Labs 05/15/18 05/15/18 05/15/18 11:50 11:50 12:25 WBC 18.2 H MCHC 36.2 H MPV 6.8 L Neut % (Auto) 89.3 H Lymph % (Auto) 5.3 L Neut # (Auto) 16.2 H Seg Neuts % (Manual) 78 H Band Neuts % (Manual) 11 H Lymphocytes % (Manual) 7 L Abs Neuts (Manual) 16.4 H Estimated GFR 82 L Lactic Acid 3.0 H Total Bilirubin 1.3 H Troponin I Less than 0.02 L Lipase 54 L Assessment and Plan - Plan 73yoF osteopenic with prior multiple compression fx in thoracic and lumbar, now with an acute L1 compression, fracture, appears neurologically intact. LSO brace. Mobilize with brace and PT. Contact neurosurgery if pain is out of control (Yanci) on ambulation. Anticipate nonsurgical management.
[2018-05-15] MEDS: traMADol/Acetaminophen 37.5/325 MG Tablet PO PRN (21:35)
[2018-05-15 21:41] LABS: Activated Partial Thrombo Time 29.6 sec (24.3-30.1); INR 1.1 Ratio; Prothrombin Time 11.4 sec (9.8-11.6)
--- NOTE | 2018-05-16 06:19 | XR ---
EXAM DATE: 05/16/2018 5:12 AM EDT AGE/SEX: 73 years / Female INDICATIONS: Fell today, pain right wrist CLINICAL DATA: This is the patient's initial encounter. Patient reports that signs and symptoms have been present for 1 day and indicates a pain score of 2/10. MEDICAL/SURGICAL HISTORY: . previous fracture right wrist None. COMPARISON: No prior exams available for comparison. FINDINGS: 3 views of the right wrist demonstrate no acute fracture or dislocation. The bones appear underminera lized. There are changes at the distal radius which may be related to old healed fracture. Mild ulnar positive variance is present with old ununited ulnar styloid fracture versus normal variant. There i s also an old healed fifth metacarpal fracture. No soft tissue abnormality or radiopaque foreign body is identified. CONCLUSION: 1. No acute fracture is identified. The bones are under mineralized. 2. Changes suggesting old fractures of the distal radius and ulnar styloid. There is ulnar positive variance. Electronically signed by: Maged Mackey MD 05/16/2018 6:17 AM EDT
--- NOTE | 2018-05-16 07:59 | CT ---
EXAM DATE: 05/16/2018 6:18 AM EDT AGE/SEX: 73 years / Female INDICATIONS: Trauma, fall. CLINICAL DATA: This is the patient's initial encounter. Patient reports that signs and symptoms have been present for 1 day and indicates a pain score of 3/10. MEDICAL/SURGICAL HISTORY: Hypertension. Lumbar fractures on 05/15. None. RADIATION DOSE: 56.35 CTDI (mGy) [place] [facility] [place]. . TECHNIQUE: CT of the head without contrast. Using automated exposure control and adjustment of the mA and/or kV according to patient size, radiation dose was kept as low as reasonably achievable to ob tain optimal diagnostic quality images. DICOM format image data is available electronically for revi ew and comparison. FINDINGS: Cerebrum: The ventricles are normal for age. No evidence of midline shift, mass lesion, hemorrhage or acute infarction. Areas of low-attenuation are seen throughout the white matter. No extraaxial fl uid collections are seen. Posterior Fossa: The cerebellum and brainstem are intact. The 4th ventricle is midline. The cerebe llopontine angle is unremarkable. Extracranial: The visualized portion of the orbits is intact. Skull: The calvaria is intact. No evidence of skull fracture. CONCLUSION: 1. No acute intracranial abnormality. 2. Chronic ischemic small vessel vasculopathy. . Electronically signed by: Julian Boucher MD 05/16/2018 7:58 AM EDT
--- NOTE | 2018-05-16 08:16 | CT ---
EXAM DATE: 05/16/2018 6:18 AM EDT AGE/SEX: 73 years / Female INDICATIONS: Trauma, fall on nursing unit. CLINICAL DATA: This is the patient's initial encounter. Patient reports that signs and symptoms have been present for 1 day and indicates a pain score of 3/10. MEDICAL/SURGICAL HISTORY: Hypertension. Lumbar fractures on 05/15. None. RADIATION DOSE: 15.14 CTDI (mGy) COMPARISON: [facility] [place]UMBAR [place] W/O CONTRAST, 05/16/2018. . TECHNIQUE: Contiguous axial images were obtained using helical multirow detector technique. The vol umetric data was post-processed with multiplanar reconstruction in oblique axial, sagittal, and coron al planes. Using automated exposure control and adjustment of the mA and/or kV according to patient s ize, radiation dose was kept as low as reasonably achievable to obtain optimal diagnostic quality oralia ges. DICOM format image data is available electronically for review and comparison. FINDINGS: Vertebrae: Normal vertebral body height. Diffuse disc space narrowing greatest at C5-6. Anterior татьяна te osteophytes C4-C6. Alignment: Normal. No subluxation. C2-3: The bony spinal canal is normal in size. No evidence of disc bulge or herniation. The neural foramina are bilaterally patent. C3-4: The bony spinal canal is normal in size. No evidence of disc bulge or herniation. The neural foramina are bilaterally patent. C4-5: The bony spinal canal is normal in size. No evidence of disc bulge or herniation. The neural foramina are bilaterally patent. C5-6: The bony spinal canal is normal in size. No evidence of disc bulge or herniation. The neural foramina are bilaterally patent. C6-7: The bony spinal canal is normal in size. No evidence of disc bulge or herniation. The neural foramina are bilaterally patent. C7-T1: The bony spinal canal is normal in size. No evidence of disc bulge or herniation. The neura l foramina are bilaterally patent. CONCLUSION: 1. Scattered degenerative changes. 2. No fracture or subluxation. Electronically signed by: Julian Boucher MD 05/16/2018 8:15 AM EDT
--- NOTE | 2018-05-16 08:24 | CT ---
EXAM DATE: 05/16/2018 6:18 AM EDT AGE/SEX: 73 years / Female INDICATIONS: Trauma, fall on nursing unit. CLINICAL DATA: This is the patient's initial encounter. Patient reports that signs and symptoms have been present for 1 day and indicates a pain score of 4/10. MEDICAL/SURGICAL HISTORY: Hypertension. Lumbar fractures on 05/15. None. RADIATION DOSE: 12.07 CTDI (mGy) ; Combined studies [place] [facility] [place]/16/2018. . TECHNIQUE: Contiguous axial images were acquired with a multirow detector CT scanner without contras t. Multiplanar reconstructions in the sagittal and coronal plane were also performed. Using automate d exposure control and adjustment of the mA and/or kV according to patient size, radiation dose was k ept as low as reasonably achievable to obtain optimal diagnostic quality images. DICOM format image data is available electronically for review and comparison. FINDINGS: Vertebrae: There are multiple compression deformities all of which appear old. Severe compression de formity at L1 with mild retropulsion of posterior fragments. Moderate to severe compression deformity at L3 with mild retropulsion of posterior fragments causing mild canal stenosis. Mild loss of height of L4 vertebral body. Diffuse osteopenia. Alignment: Normal. No subluxation. T12-L1: The thecal sac has a normal diameter. No evidence of disc bulge or protrusion. The neural foramina are patent bilaterally. L1-L2: Mild broad-based disc bulge without canal stenosis. The neural foramina are patent bilateral ly. L2-L3: Retropulsion of posterior fragments at L3 superiorly and posteriorly causes mild canal stenos is. The neural foramina are patent bilaterally. L3-L4: Mild broad-based disc bulge abuts ventral thecal sac without canal stenosis. The neural fora chinedu are patent bilaterally. L4-L5: Mild broad-based disc bulge abuts ventral thecal sac without canal stenosis. The neural fora chinedu are patent bilaterally. L5-S1: The thecal sac has a normal diameter. No evidence of disc bulge or protrusion. The neural f oramina are patent bilaterally. CONCLUSION: 1. Multilevel old compression deformities including L1, L3 and L4 vertebral bodies. 2. Mild canal stenosis at L3 secondary to retropulsion of posterior fragments. 3. No acute fracture. Electronically signed by: Julian Boucher MD 05/16/2018 8:23 AM EDT
--- NOTE | 2018-05-16 08:27 | CT ---
EXAM DATE: 05/16/2018 6:18 AM EDT AGE/SEX: 73 years / Female INDICATIONS: Trauma, fall on nursing unit. CLINICAL DATA: This is the patient's initial encounter. Patient reports that signs and symptoms have been present for 1 day and indicates a pain score of 2/10. MEDICAL/SURGICAL HISTORY: Hypertension. Lumbar fractures on 05/15. None. RADIATION DOSE: 12.07 CTDI (mGy) ; Combined studies COMPARISON: [facility] [place] W/O [place], 05/16/2018. . TECHNIQUE: Contiguous axial images were acquired using a multirow detector CT scanner without contra st. Multiplanar reconstruction in the sagittal and coronal planes was performed. Using automated exp osure control and adjustment of the mA and/or kV according to patient size, radiation dose was kept a s low as reasonably achievable to obtain optimal diagnostic quality images. DICOM format image data is available electronically for review and comparison. FINDINGS: Vertebrae: Moderate loss of height of T4, T7 and T8 vertebral bodies. Mild loss of height of T5. Alig nment: Kyphosis with diffuse degenerative changes. No spondylolisthesis. T1 - T2: Normal. T2 - T3: The thecal sac has a normal diameter. No evidence of disc bulge or protrusion. T3 - T4: The thecal sac has a normal diameter. No evidence of disc bulge or protrusion. T4 - T5: The thecal sac has a normal diameter. No evidence of disc bulge or protrusion. T5 - T6: The thecal sac has a normal diameter. No evidence of disc bulge or protrusion. T6 - T7: The thecal sac has a normal diameter. No evidence of disc bulge or protrusion. T7 - T8: The thecal sac has a normal diameter. No evidence of disc bulge or protrusion. T8 - T9: The thecal sac has a normal diameter. No evidence of disc bulge or protrusion. T9 - T10: The thecal sac has a normal diameter. No evidence of disc bulge or protrusion. T10 - T11: The thecal sac has a normal diameter. No evidence of disc bulge or protrusion. T11 - T12: The thecal sac has a normal diameter. No evidence of disc bulge or protrusion. T12 - L1: The thecal sac has a normal diameter. No evidence of disc bulge or protrusion. CONCLUSION: 1. Multiple old compression deformities. 2. Kyphosis and diffuse degenerative changes. Electronically signed by: Julian Boucher MD 05/16/2018 8:26 AM EDT
[2018-05-16] MEDS: Metoprolol Tartrate 50 MG Tablet PO SCH ×3 (08:30→17:30)
[2018-05-16 10:24] LABS: Baso % (Auto) 0.3 % (0.0-2.0); Eos # (Auto) 0.3 th/mm3 (0.0-0.4); Eos % (Auto) 1.9 % (0.0-4.0); Hemoglobin 12.5 gm/dL (11.6-15.3); Lymph # (Auto) 0.9 th/mm3 (1.0-4.8); Lymph % (Auto) 6.1 % (9.0-44.0); Mean Corpuscular HGB Conc 33.8 % (32.0-36.0); Mean Corpuscular Hemoglobin 31.4 pg (27.0-34.0); Mean Corpuscular Volume 92.9 fL (80.0-100.0); Mono # (Auto) 0.7 th/mm3 (0.0-0.9); Mono % (Auto) 4.7 % (0.0-8.0); Neut # (Auto) 12.7 th/mm3 (1.8-7.7); Platelet Count 257 th/mm3 (150-450); Red Blood Count 3.98 mil/mm3 (4.00-5.30); White Blood Count 14.6 th/mm3 (4.0-11.0)
--- NOTE | 2018-05-16 10:36 | P.PNIM ---
Subjective Interval history: 73 years old female S/P fall Acute Low back pain with L1 compression fracture deformity history of chronic back pain -Appreciate neurosurgery evaluation who recommended nonsurgical treatment with pain control physical therapy and brace. -Continue Ultracet 1 tab po q 4 prn for pain Uncontrolled Hypertension - admits to non compliance - will start on Lopressor 50 mg po x 1 q 8 -Restart lisinopril ETOH use- monitor for DTs- -placed on CIWA protocol -Initiate thiamine and folate. Leukoctyosis on labs- may be reactive, this has trended down. Lactic acidemia likely from alcohol ketosis - UA + ketones - afebrile, UA, CXR negative, clinically no signs of active infection DVT prophylaxisteds, start Lovenox. Physical Exam Vital signs: Vital Signs 05/15/18 11:22 05/15/18 11:40 05/15/18 14:17 Temperature 98.4 F Pulse Rate 121 H 116 H Respiratory Rate 18 18 18 Blood Pressure 161/113 H 163/107 H Pulse Oximetry 94 L 94 L 05/15/18 14:19 05/15/18 15:35 05/15/18 16:45 Temperature Pulse Rate 95 H 106 H 101 H Respiratory Rate 16 18 18 Blood Pressure 163/99 H 176/119 H 179/106 H Pulse Oximetry 94 L 94 L 05/15/18 19:26 05/15/18 19:47 05/15/18 23:32 Temperature 98.0 F 97.9 F Pulse Rate 81 92 H 84 Respiratory Rate 18 18 Blood Pressure 177/99 H 158/98 H 181/98 H Pulse Oximetry 94 L 92 L 05/15/18 23:34 05/16/18 00:49 05/16/18 04:00 Temperature 97.3 F L Pulse Rate 82 Respiratory Rate 18 17 18 Blood Pressure 153/88 H Pulse Oximetry 92 L 05/16/18 05:00 05/16/18 05:07 05/16/18 05:17 Temperature 97.3 F L 97.5 F L 97.3 F L Pulse Rate 97 H 98 H 97 H Respiratory Rate 20 20 20 Blood Pressure 211/109 H 193/103 H 174/100 H Pulse Oximetry 95 95 95 05/16/18 06:00 05/16/18 07:00 05/16/18 08:15 Temperature 97.4 F L 98.5 F 97.7 F Pulse Rate 87 82 82 Respiratory Rate 19 18 16 Blood Pressure 163/117 H 163/97 H 154/94 H Pulse Oximetry 99 99 97 Intake & Output 05/15/18 05/16/18 05/16/18 18:59 06:59 18:59 Intake Total 1999 240 / 240 Balance 1999 240 / 240 Weight 49.895 kg 49.89 kg Intake: IV 1999 NS Inj 1,000 ML @ Wide Open IV. 1999 SIG BOLUS TREVOR Rx#:[id number] Oral 240 / 240 Other: # Urine Diapers 2 Date of Last Bowel Movement 05/14/18 05/14/18 # Bowel Movements 0 Weight On Admission 49.895 kg - Urinary Catheter Management Straight Cath placed during this visit: yes Reason for continuing: Not indwelling catheter Insertion date: 05/15/18 Insertion time: 12:25 Results - Labs CBC & Chem 7: 05/16/18 09:57 05/15/18 11:50 Laboratory Results - last 24 hr 05/15/18 05/15/18 05/15/18 11:50 11:50 11:50 WBC 18.2 H RBC 4.17 Hgb 14.0 Hct 38.7 MCV 92.8 MCH 33.6 MCHC 36.2 H RDW 15.8 Plt Count 317 MPV 6.8 L Prelim Diff (Auto) Slide review pending Neut % (Auto) 89.3 H Lymph % (Auto) 5.3 L [place] % (Auto) 5.1 Eos % (Auto) 0.2 Baso % (Auto) 0.1 Neut # (Auto) 16.2 H Lymph # (Auto) 1.0 [place] # (Auto) 0.9 Eos # (Auto) 0.0 Baso # (Auto) 0.0 WBC Differential Manual diff final Seg Neuts % (Manual) 78 H Band Neuts % (Manual) 11 H Lymphocytes % (Manual) 7 L Monocytes % (Manual) 3 Metamyelocytes % (Man) 1 Abs Neuts (Manual) 16.4 H Differential Comment . Platelet Estimate Normal Platelet Morphology Normal PT INR APTT Sodium 137 Potassium 4.2 Chloride 99 Carbon Dioxide 25.3 Anion Gap 13 BUN 10 Creatinine 0.70 Estimated GFR 82 L Random Glucose 80 Lactic Acid Calcium 8.7 Total Bilirubin 1.3 H AST 16 ALT 23 Alkaline Phosphatase 59 Total Creatine Kinase Troponin I Less than 0.02 L B-Natriuretic Peptide 80 Total Protein 7.6 Albumin 3.8 Lipase 54 L Urine Color Urine Clarity Urine pH Ur Specific [place] Urine Protein Urine Glucose (UA) Urine Ketones Urine Occult Blood Urine Nitrate Urine Bilirubin Urine Urobilinogen Ur Leukocyte Esterase Urine RBC Urine WBC Micro UA Comment Ur Microscopic Review Urine Culture Comments Urine Opiates Screen Ur Barbiturates Screen Ur Amphetamines Screen U Benzodiazepines Scrn Urine Cocaine Screen U Cannabinoids Screen Serum Alcohol 05/15/18 05/15/18 05/15/18 11:50 11:50 12:25 WBC RBC Hgb Hct MCV MCH MCHC RDW Plt Count MPV Prelim Diff (Auto) Neut % (Auto) Lymph % (Auto) [place] % (Auto) Eos % (Auto) Baso % (Auto) Neut # (Auto) Lymph # (Auto) [place] # (Auto) Eos # (Auto) Baso # (Auto) WBC Differential Seg Neuts % (Manual) Band Neuts % (Manual) Lymphocytes % (Manual) Monocytes % (Manual) Metamyelocytes % (Man) Abs Neuts (Manual) Differential Comment Platelet Estimate Platelet Morphology PT INR APTT Sodium Potassium Chloride Carbon Dioxide Anion Gap BUN Creatinine Estimated GFR Random Glucose Lactic Acid 3.0 H Calcium Total Bilirubin AST ALT Alkaline Phosphatase Total Creatine Kinase 53 Troponin I B-Natriuretic Peptide Total Protein Albumin Lipase Urine Color Urine Clarity Urine pH Ur Specific [place] Urine Protein Urine Glucose (UA) Urine Ketones Urine Occult Blood Urine Nitrate Urine Bilirubin Urine Urobilinogen Ur Leukocyte Esterase Urine RBC Urine WBC Micro UA Comment Ur Microscopic Review Urine Culture Comments Urine Opiates Screen Ur Barbiturates Screen Ur Amphetamines Screen U Benzodiazepines Scrn Urine Cocaine Screen U Cannabinoids Screen Serum Alcohol Less than 3 05/15/18 05/15/18 05/15/18 12:25 12:25 21:15 WBC RBC Hgb Hct MCV MCH MCHC RDW Plt Count MPV Prelim Diff (Auto) Neut % (Auto) Lymph % (Auto) [place] % (Auto) Eos % (Auto) Baso % (Auto) Neut # (Auto) Lymph # (Auto) [place] # (Auto) Eos # (Auto) Baso # (Auto) WBC Differential Seg Neuts % (Manual) Band Neuts % (Manual) Lymphocytes % (Manual) Monocytes % (Manual) Metamyelocytes % (Man) Abs Neuts (Manual) Differential Comment Platelet Estimate Platelet Morphology PT 11.4 INR 1.1 APTT 29.6 Sodium Potassium Chloride Carbon Dioxide Anion Gap BUN Creatinine Estimated GFR Random Glucose Lactic Acid Calcium Total Bilirubin AST ALT Alkaline Phosphatase Total Creatine Kinase Troponin I B-Natriuretic Peptide Total Protein Albumin Lipase Urine Color Yellow Urine Clarity Clear Urine pH 7.0 Ur Specific [place] 1.010 Urine Protein Negative Urine Glucose (UA) Negative Urine Ketones 20 Urine Occult Blood Negative Urine Nitrate Negative Urine Bilirubin Negative Urine Urobilinogen Less than 2 Ur Leukocyte Esterase Negative Urine RBC Less than 1 Urine WBC 1 Micro UA Comment Cath-culture not ind Ur Microscopic Review Not Reportable Urine Culture Comments Cath-cult not ind Urine Opiates Screen Neg Ur Barbiturates Screen Neg Ur Amphetamines Screen Neg U Benzodiazepines Scrn Neg Urine Cocaine Screen Neg U Cannabinoids Screen Neg Serum Alcohol 05/16/18 05/16/18 09:57 09:57 WBC 14.6 H RBC 3.98 L Hgb 12.5 Hct 37.0 MCV 92.9 MCH 31.4 MCHC 33.8 RDW 16.0 Plt Count 257 MPV 7.0 Prelim Diff (Auto) Neut % (Auto) 87.0 H Lymph % (Auto) 6.1 L [place] % (Auto) 4.7 Eos % (Auto) 1.9 Baso % (Auto) 0.3 Neut # (Auto) 12.7 H Lymph # (Auto) 0.9 L [place] # (Auto) 0.7 Eos # (Auto) 0.3 Baso # (Auto) 0.0 WBC Differential . Seg Neuts % (Manual) Band Neuts % (Manual) Lymphocytes % (Manual) Monocytes % (Manual) Metamyelocytes % (Man) Abs Neuts (Manual) Differential Comment Auto diff final Platelet Estimate Platelet Morphology PT INR APTT Sodium Potassium Chloride Carbon Dioxide Anion Gap BUN Creatinine Estimated GFR Random Glucose Lactic Acid 1.3 Calcium Total Bilirubin AST ALT Alkaline Phosphatase Total Creatine Kinase Troponin I B-Natriuretic Peptide Total Protein Albumin Lipase Urine Color Urine Clarity Urine pH Ur Specific [place] Urine Protein Urine Glucose (UA) Urine Ketones Urine Occult Blood Urine Nitrate Urine Bilirubin Urine Urobilinogen Ur Leukocyte Esterase Urine RBC Urine WBC Micro UA Comment Ur Microscopic Review Urine Culture Comments Urine Opiates Screen Ur Barbiturates Screen Ur Amphetamines Screen U Benzodiazepines Scrn Urine Cocaine Screen U Cannabinoids Screen Serum Alcohol - Imaging Impressions Chest X-Ray 05/15/18 11:52 CONCLUSION: Hyperinflated lungs. Head CT 05/15/18 11:52 CONCLUSION: No acute intracranial abnormality is seen. . Lumbar Spine CT 05/15/18 11:52 CONCLUSION: 1. New compression deformity at L1 with significant loss of height centrally. There is posterior angulation of the posterior superior and inferior margins of the L1 vertebral body causing mild impressions on thecal sac. 2. Chronic compression deformity at L3 with some posterior angulation the posterior superior aspect of L3 causing a moderate impression on the thecal sac. 3. Mild compression deformity at the superior aspect of the L4 vertebral body. This was present previously. Chest CT 05/15/18 13:18 CONCLUSION: 1. The lung [place] are hyperaerated. No focal or acute intrathoracic disease is demonstrated. There is some minimal atelectasis versus scarring in the right lung base. 2. Osteopenia and degenerative changes are seen throughout the bony structures. There are several old appearing wedge compression injuries involving the thoracic spine including T4, T5, T7 and T8. Cervical Spine CT 05/16/18 00:00 CONCLUSION: 1. Scattered degenerative changes. 2. No fracture or subluxation. Head CT 05/16/18 00:00 CONCLUSION: 1. No acute intracranial abnormality. 2. Chronic ischemic small vessel vasculopathy. . Lumbar Spine CT 05/16/18 00:00 CONCLUSION: 1. Multilevel old compression deformities including L1, L3 and L4 vertebral bodies. 2. Mild canal stenosis at L3 secondary to retropulsion of posterior fragments. 3. No acute fracture. Thoracic Spine CT 05/16/18 00:00 CONCLUSION: 1. Multiple old compression deformities. 2. Kyphosis and diffuse degenerative changes. Wrist X-Ray 05/16/18 05:12 CONCLUSION: 1. No acute fracture is identified. The bones are under mineralized. 2. Changes suggesting old fractures of the distal radius and ulnar styloid. There is ulnar positive variance. Assessment and Plan - Plan Discharge Planning: Could benefit from [facility] facility but patient belligerent at times and prefers to go home
[2018-05-16 10:46] LABS: Anion Gap 10 meq/L (5-15); Blood Urea Nitrogen 11 mg/dL (7-18); Calcium 8.3 mg/dL (8.5-10.1); Carbon Dioxide 24.4 meq/L (21.0-32.0); Chloride 99 meq/L (98-107); Glomerular Filtration Rate Greater Than 89 mL/min (>89); Glucose,Random 139 mg/dL (74-106); Potassium 4.2 meq/L (3.5-5.1); Sodium 133 meq/L (136-145)
--- NOTE | 2018-05-16 11:49 | ECG ---
Date Performed: 05/15/2018 Time Performed: 13:00:48 PTAGE: 73 years EKG: SINUS TACHYCARDIA ABNORMAL RHYTHM ECG Compared to PREVIOUS TRACING ST segments have returned to normal PREVIOUS TRACIN12/30/2017 11.25 DOCTOR: Court Urias Interpretating Date/Time 05/16/2018 11:47:47
[2018-05-16] MEDS: Enoxaparin Inj 30 MG/0.3 ML Syringe SQ SCH (13:25)
[2018-05-16] MEDS: traMADol/Acetaminophen 37.5/325 MG Tablet PO PRN (13:25)
[2018-05-16] MEDS: Lisinopril 20 MG Tablet PO SCH (13:27)
[2018-05-16] MEDS: Zolpidem Tartrate 5 MG Tablet PO PRN (23:54)
[2018-05-16] MEDS: Calcium/Vitamin D 250/125 MG Tablet PO SCH (23:54)
[2018-05-17] MEDS: traMADol/Acetaminophen 37.5/325 MG Tablet PO PRN ×3 (04:30→22:32)
[2018-05-17 05:18] LABS: Baso % (Auto) 0.3 % (0.0-2.0); Eos # (Auto) 0.3 th/mm3 (0.0-0.4); Eos % (Auto) 3.5 % (0.0-4.0); Hemoglobin 11.8 gm/dL (11.6-15.3); Lymph # (Auto) 1.4 th/mm3 (1.0-4.8); Lymph % (Auto) 15.3 % (9.0-44.0); Mean Corpuscular HGB Conc 33.8 % (32.0-36.0); Mean Corpuscular Hemoglobin 31.7 pg (27.0-34.0); Mean Corpuscular Volume 93.9 fL (80.0-100.0); Mean Platelet Volume 7.1 fL (7.0-11.0); Mono # (Auto) 0.6 th/mm3 (0.0-0.9); Mono % (Auto) 6.3 % (0.0-8.0); Neut # (Auto) 6.8 th/mm3 (1.8-7.7); Neut % (Auto) 74.6 % (16.0-70.0); Platelet Count 230 th/mm3 (150-450); Red Blood Count 3.73 mil/mm3 (4.00-5.30); Red Cell Distribution Width 15.5 % (11.6-17.2); White Blood Count 9.2 th/mm3 (4.0-11.0)
[2018-05-17] MEDS: Calcium/Vitamin D 250/125 MG Tablet PO SCH ×2 (09:01→21:08)
[2018-05-17] MEDS: Lisinopril 20 MG Tablet PO SCH (09:01)
[2018-05-17] MEDS: Metoprolol Tartrate 50 MG Tablet PO SCH ×2 (09:01→11:59)
[2018-05-17] MEDS: Enoxaparin Inj 30 MG/0.3 ML Syringe SQ SCH (09:49)
[2018-05-17] MEDS: LORazepam 1 MG Tablet PO PRN (11:53)
--- NOTE | 2018-05-17 13:00 | P.PNIM ---
Subjective Interval history: Patient still adamant about not wanting to go to rehab. Has been belligerent to staff at times. she is still complaining of back pain. Physical Exam Vital signs: Vital Signs 05/16/18 13:15 05/16/18 17:15 05/16/18 21:15 Temperature 98.0 F 97.1 F L 98.3 F Pulse Rate 75 76 78 Respiratory Rate 16 16 18 Blood Pressure 143/95 H 161/88 H 155/93 H Pulse Oximetry 93 L 91 L 92 L 05/17/18 01:15 05/17/18 05:15 05/17/18 08:00 Temperature 98.5 F 98.7 F 97.9 F Pulse Rate 72 75 78 Respiratory Rate 18 18 18 Blood Pressure 158/86 H 152/84 H 151/98 H Pulse Oximetry 93 L 92 L 91 L 05/17/18 09:30 05/17/18 12:00 Temperature 97.5 F L Pulse Rate 69 Respiratory Rate 18 18 Blood Pressure 117/66 Pulse Oximetry 92 L Intake & Output 05/16/18 05/17/18 05/17/18 18:59 06:59 18:59 Weight 49.3 kg Other: # Voids 3 4 # Incontinent Voids 2 Date of Last Bowel Movement 05/14/18 05/14/18 05/14/18 Narrative: GENERAL: This is a thin well-developed patient, in no apparent distress. CARDIOVASCULAR: Regular rate and rhythm RESPIRATORY: Clear to auscultation. Breath sounds equal bilaterally. No wheezes , rales, or rhonchi. MUSCULOSKELETAL: Extremities without clubbing, cyanosis, or edema. NEURO: Alert & Oriented x4 to person, place, time, situation. Moves all ext x4 - Urinary Catheter Management Straight Cath placed during this visit: yes Reason for continuing: Not indwelling catheter Insertion date: 05/15/18 Insertion time: 12:25 Results - Labs CBC & Chem 7: 05/17/18 03:45 05/16/18 09:57 Laboratory Results - last 24 hr 05/17/18 03:45 WBC 9.2 RBC 3.73 L Hgb 11.8 Hct 35.0 MCV 93.9 MCH 31.7 MCHC 33.8 RDW 15.5 Plt Count 230 MPV 7.1 Neut % (Auto) 74.6 H Lymph % (Auto) 15.3 [place] % (Auto) 6.3 Eos % (Auto) 3.5 Baso % (Auto) 0.3 Neut # (Auto) 6.8 Lymph # (Auto) 1.4 [place] # (Auto) 0.6 Eos # (Auto) 0.3 Baso # (Auto) 0.0 WBC Differential . Differential Comment Auto diff final Microbiology 05/15/18 12:25 Blood - Peripheral Aerobic Blood Culture - Preliminary Staphylococcus coag negative 05/15/18 12:25 Blood - Peripheral Anaerobic Blood Culture - Preliminary No growth in 2 days 05/15/18 12:20 Blood - Peripheral Aerobic Blood Culture - Preliminary No growth in 2 days 05/15/18 12:20 Blood - Peripheral Anaerobic Blood Culture - Preliminary No growth in 2 days Assessment and Plan - Plan 73 years old female S/P fall with 1. Acute Low back pain with L1 compression fracture deformity history of chronic back pain -Appreciate neurosurgery evaluation who recommended nonsurgical treatment with pain control physical therapy and brace. -Continue Ultracet 1 tab po q 4 prn for pain Unfortunately, patient is declining rehab placement 2. Uncontrolled Hypertension - admits to non compliance - will stop Lopressor 50 mg po x 1 q 8 -Increase lisinopril today blood pressure is better controlled. 3. ETOH use-no signs of DTs at this time. -placed on CIWA protocol -Initiate thiamine and folate. 4. Leukoctyosis on labs- may be reactive, this has trended down. Lactic acidemia likely from alcohol ketosis - UA + ketones - afebrile, UA, CXR negative, clinically no signs of active infection 5. DVT prophylaxisteds, start Lovenox. Discharge Planning: Could benefit from shelter facility but patient belligerent at times and prefers to go home
[2018-05-17] MEDS: Zolpidem Tartrate 5 MG Tablet PO PRN (21:08)
[2018-05-18] MEDS: traMADol/Acetaminophen 37.5/325 MG Tablet PO PRN ×3 (09:39→21:23)
[2018-05-18] MEDS: Calcium/Vitamin D 250/125 MG Tablet PO SCH ×2 (09:39→21:24)
[2018-05-18] MEDS: Lisinopril 20 MG Tablet PO SCH (09:39)
--- NOTE | 2018-05-18 11:21 | P.PNIM ---
Subjective Interval history: Patient states that she has significant lower back pain and not improve on pain medications. She is open for surgical procedure as offered. She is also open to going to rehab. She reports any type of pivoting causes significant pain. Physical Exam Vital signs: Vital Signs 05/17/18 12:00 05/17/18 16:00 05/17/18 19:05 Temperature 97.5 F L 97.3 F L 98.6 F Pulse Rate 69 77 85 Respiratory Rate 18 18 18 Blood Pressure 117/66 154/91 H 126/74 Pulse Oximetry 92 L 95 96 05/17/18 23:34 05/18/18 08:00 Temperature 97.8 F 98.3 F Pulse Rate 85 98 H Respiratory Rate 17 18 Blood Pressure 115/67 117/83 Pulse Oximetry 95 94 L Intake & Output 05/17/18 05/18/18 05/18/18 18:59 06:59 18:59 Intake Total 480 / 480 480 / 480 Balance 480 / 480 480 / 480 Weight 49.3 kg Intake: Oral 480 / 480 480 / 480 Other: # Voids 1 # Urine Diapers 2 Date of Last Bowel Movement 05/14/18 05/14/18 # Bowel Movements 0 Narrative: GENERAL: This is a thin well-developed patient, in no apparent distress. CARDIOVASCULAR: Regular rate and rhythm RESPIRATORY: Clear to auscultation. Breath sounds equal bilaterally. No wheezes , rales, or rhonchi. MUSCULOSKELETAL: Extremities without clubbing, cyanosis, or edema. NEURO: Alert & Oriented x4 to person, place, time, situation. Moves all ext x4 - Urinary Catheter Management Straight Cath placed during this visit: yes Reason for continuing: Not indwelling catheter Insertion date: 05/15/18 Insertion time: 12:25 Results - Labs CBC & Chem 7: 05/17/18 03:45 05/16/18 09:57 Microbiology 05/15/18 12:25 Blood - Peripheral Aerobic Blood Culture - Preliminary Staphylococcus coag negative 05/15/18 12:25 Blood - Peripheral Anaerobic Blood Culture - Preliminary No growth in 3 days 05/15/18 12:20 Blood - Peripheral Aerobic Blood Culture - Preliminary No growth in 3 days 05/15/18 12:20 Blood - Peripheral Anaerobic Blood Culture - Preliminary No growth in 3 days Assessment and Plan - Plan 73 years old female S/P fall with 1. Acute Low back pain with L1 compression fracture deformity history of chronic back pain -Appreciate neurosurgery evaluation who recommended nonsurgical treatment with pain control physical therapy and brace. -Continue Ultracet 1 tab po q 4 prn for pain Patient is still having significant pain. Will reconsult neurosurgery for evaluation for kyphoplasty. Trial of lidocaine patch 2. Uncontrolled hypertension - will stop Lopressor 50 mg po x 1 q 8 -Continue with current lisinopril dose as blood pressures better controlled today. 3. ETOH use-no signs of DTs at this time. -placed on CIWA protocol -Initiate thiamine and folate. 4. Leukoctyosis on labs- may be reactive, this has now trended down. Lactic acidemia likely from alcohol ketosis - UA + ketones - afebrile, UA, CXR negative, clinically no signs of active infection 5. DVT prophylaxisteds, start Lovenox. Discharge Planning: Patient will benefit from longterm facility, will also need to await for neurosurgery evaluation for kyphoplasty.
[2018-05-18] MEDS: Enoxaparin Inj 30 MG/0.3 ML Syringe SQ SCH (11:32)
[2018-05-18] MEDS ORDERED: Bisacodyl 10 MG Supp RECTAL PRN (16:27)
--- NOTE | 2018-05-18 17:18 | MR ---
EXAM DATE: 05/18/2018 3:53 PM EDT AGE/SEX: 73 years / Female INDICATIONS: Pain. CLINICAL DATA: This is the patient's subsequent encounter. Patient reports that signs and symptoms h ave been present for 4 - 6 days and indicates a pain score of 5/10. MEDICAL/SURGICAL HISTORY: Hypertension. CHronic back pains, ETOH Hemorrhoidectomy. COMPARISON: [facility] – [place], MRI THORACIC SPINE W/O CONTRAST, 12/05/2014. . TECHNIQUE: Multiplanar, multisequence MRI of the thoracic spine was performed. FINDINGS: See the MRI of the lumbar spine reported separately. Vertebrae: Old compression deformities are seen involving T7, T8, T10, and L1. No acute compression fractures observed. Near vertebral plana involving T7. Homogeneous marrow signal otherwise.. Alignment: Normal. Cord: Normal position and configuration. T1-T2: The thecal sac has a normal diameter. No evidence of disc bulge or protrusion. T2-T3: The thecal sac has a normal diameter. No evidence of disc bulge or protrusion. T3-T4: The thecal sac has a normal diameter. No evidence of disc bulge or protrusion. T4-T5: The thecal sac has a normal diameter. No evidence of disc bulge or protrusion. T5-T6: The thecal sac has a normal diameter. No evidence of disc bulge or protrusion. T6-T7: The thecal sac has a normal diameter. No evidence of disc bulge or protrusion. T7-T8: The thecal sac has a normal diameter. No evidence of disc bulge or protrusion. T8-T9: The thecal sac has a normal diameter. No evidence of disc bulge or protrusion. T9-T10: The thecal sac has a normal diameter. No evidence of disc bulge or protrusion. T10-T11: The thecal sac has a normal diameter. No evidence of disc bulge or protrusion. T11-T12: The thecal sac has a normal diameter. No evidence of disc bulge or protrusion. T12-L1: The thecal sac has a normal diameter. No evidence of disc bulge or protrusion. CONCLUSION: 1. Patent central canal throughout. 2. Multiple old compression fractures without new compression fracture. 3. See the MRI of the lumbar spine reported separately. Electronically signed by: Josef Silva MD 05/18/2018 5:17 PM EDT
--- NOTE | 2018-05-18 17:36 | MR ---
EXAM DATE: 05/18/2018 3:52 PM EDT AGE/SEX: 73 years / Female INDICATIONS: Pain. CLINICAL DATA: This is the patient's subsequent encounter. Patient reports that signs and symptoms h ave been present for 4 - 6 days and indicates a pain score of 5/10. MEDICAL/SURGICAL HISTORY: Hypertension. CHronic Back pain, ETOH Hemorrhoidectomy. COMPARISON: [facility] – [place], [place] LUMBAR SPINE W/O CONTRAST, 12/05/2014. . TECHNIQUE: Multiplanar, multisequence MRI of the lumbar spine was performed without contrast. Patie nt was scanned in a sitting position; neutral, flexion, and extension scans were performed in the sa gittal plane. FINDINGS: Vertebra: Linear edema is seen paralleling the superior endplate of the L2 and L4 vertebral bodies. There is 10% loss of height of the superior endplate of L2 and 40-50% loss of height of the superior endplate of L4. No retropulsion at either these locations. Old compression fractures are seen involvi ng L1 and L3 with vertebral plana at L1. Mild retropulsion at both locations. This measures maximally 4 mm at L3.. Conus: Normal level and configuration. T12-L1: The thecal sac has a normal diameter. No evidence of disc bulge or protrusion. The neural foramina are patent bilaterally. L1-L2: A mild broad-based posterior disc osteophyte complex. Lateral recesses, central canal, and n eural foramen remain patent.. L2-L3: A mild broad-based posterior disc osteophyte complex. This generates mild narrowing of the l ateral recesses and mild encroachment upon the neural foramen. The retropulsed bony fragment/osteophy te generates a majority of the narrowing of the central canal. Anterior to posterior dimension of the thecal space in the midline measures 9 mm. Neural foramina are patent bilaterally. L3-L4: The thecal sac has a normal diameter. No evidence of disc bulge or protrusion. The neural foramina are patent bilaterally. L4-L5: The thecal sac has a normal diameter. No evidence of disc bulge or protrusion. The neural foramina are patent bilaterally. Mild ligamentum flavum hypertrophy of the facets. L5-S1: Disc desiccation and disc space narrowing with minimal broad-based disc bulge. Lateral reces ses, central canal, and neural foramen remain patent.. CONCLUSION: 1. Acute to subacute compression fractures involving L2 and L4 as detailed above. No retropulsion. 2. Old compression fractures involving L1 and L3 with approximately 4 mm of retropulsion. 3. Mild narrowing of the central canal at L3 secondary to the retropulsion. Otherwise the central ca nal and neural foramina are patent throughout. Electronically signed by: Josef Silva MD 05/18/2018 5:34 PM EDT
--- NOTE | 2018-05-18 18:14 | P.PNNS ---
Subjective Interval history: 73-year-old lady admitted for intractable low back pain and found to have multiple compression fractures involving the thoracic and lumbar spine. She was seen by Dr. Hart from neurosurgery who recommended TLSO brace and physical therapy with pain management. Patient's pain is intractable mainly in the lumbar area and she refuses to get out of bed with physical therapy. Neurosurgery has been reconsulted for possible kyphoplasty. Previous imaging study was thoracic and lumbar spine CT which obviously cannot relate acute versus chronic fracture and therefore I recommended MRI of the thoracic and lumbar spine to further evaluate age of these multiple compression fractures. The MRI scan shows that the thoracic spine fractures are chronic as well as the lumbar L1 and L3 fractures are chronic with the L2 and L4 vertebrae fractures being more acute. She denies any numbness or paresthesias in the lower extremities. Physical Exam Vital signs: Vital Signs 05/17/18 19:05 05/17/18 23:34 05/18/18 08:00 Temperature 98.6 F 97.8 F 98.3 F Pulse Rate 85 85 98 H Respiratory Rate 18 17 18 Blood Pressure 126/74 115/67 117/83 Pulse Oximetry 96 95 94 L 05/18/18 12:00 05/18/18 16:00 Temperature 97.3 F L 98.1 F Pulse Rate 110 H 107 H Respiratory Rate 18 18 Blood Pressure 113/72 134/88 Pulse Oximetry 94 L 93 L Intake & Output 05/17/18 05/18/18 05/18/18 18:59 06:59 18:59 Intake Total 480 / 480 480 / 480 Balance 480 / 480 480 / 480 Weight 49.3 kg Intake: Oral 480 / 480 480 / 480 Other: # Voids 1 # Urine Diapers 2 Date of Last Bowel Movement 05/14/18 05/14/18 05/14/18 # Bowel Movements 0 - Constitutional mild distress - Routine HEENT Exam Head: Present: normocephalic, atraumatic Eye: Present: EOMI, PERRL ENT: Present: oropharynx clear, nares patent, external ear normal - Routine Neck Exam Present: supple, full ROM - Routine Respiratory Exam Present: CTA bilaterally - Routine Cardiovascular Exam Present: RRR, S1, S2 - Routine Abdominal Exam Present: soft, normoactive bowel sounds - Routine Extremities Exam Present: full ROM - Routine Skin Exam Present: intact - Routine Neurological Exam Present: oriented X3, CN II-XII intact, plantar reflex, moving all extremities, normal speech - Routine Psychiatric Exam Present: normal affect, normal thought process, cooperative - Additional findings Additional findings: Chest X-Ray 05/15/18 11:52 CONCLUSION: Hyperinflated lungs. Head CT 05/15/18 11:52 CONCLUSION: No acute intracranial abnormality is seen. . Lumbar Spine CT 05/15/18 11:52 CONCLUSION: 1. New compression deformity at L1 with significant loss of height centrally. There is posterior angulation of the posterior superior and inferior margins of the L1 vertebral body causing mild impressions on thecal sac. 2. Chronic compression deformity at L3 with some posterior angulation the posterior superior aspect of L3 causing a moderate impression on the thecal sac. 3. Mild compression deformity at the superior aspect of the L4 vertebral body. This was present previously. Chest CT 05/15/18 13:18 CONCLUSION: 1. The lung [place] are hyperaerated. No focal or acute intrathoracic disease is demonstrated. There is some minimal atelectasis versus scarring in the right lung base. 2. Osteopenia and degenerative changes are seen throughout the bony structures. There are several old appearing wedge compression injuries involving the thoracic spine including T4, T5, T7 and T8. Cervical Spine CT 05/16/18 00:00 CONCLUSION: 1. Scattered degenerative changes. 2. No fracture or subluxation. Head CT 05/16/18 00:00 CONCLUSION: 1. No acute intracranial abnormality. 2. Chronic ischemic small vessel vasculopathy. . Lumbar Spine CT 05/16/18 00:00 CONCLUSION: 1. Multilevel old compression deformities including L1, L3 and L4 vertebral bodies. 2. Mild canal stenosis at L3 secondary to retropulsion of posterior fragments. 3. No acute fracture. Thoracic Spine CT 05/16/18 00:00 CONCLUSION: 1. Multiple old compression deformities. 2. Kyphosis and diffuse degenerative changes. Wrist X-Ray 05/16/18 05:12 CONCLUSION: 1. No acute fracture is identified. The bones are under mineralized. 2. Changes suggesting old fractures of the distal radius and ulnar styloid. There is ulnar positive variance. Lumbar Spine MRI 05/18/18 00:00 CONCLUSION: 1. Acute to subacute compression fractures involving L2 and L4 as detailed above. No retropulsion. 2. Old compression fractures involving L1 and L3 with approximately 4 mm of retropulsion. 3. Mild narrowing of the central canal at L3 secondary to the retropulsion. Otherwise the central canal and neural foramina are patent throughout. Thoracic Spine MRI 05/18/18 00:00 CONCLUSION: 1. Patent central canal throughout. 2. Multiple old compression fractures without new compression fracture. 3. See the MRI of the lumbar spine reported separately. Active Medications Al Hydroxide/Mg Hydroxide (Milk Of Magnesia Liq) 30 ml PO Q12H PRN PRN Reason: Mild Constipation Bisacodyl (Dulcolax Supp) 10 mg RECTAL DAILY PRN PRN Reason: SEVERE CONSITIPATION Calcium/Vitamin D (Oscal With D 250/125 Mg) 1 tab PO BID [facility] Last Admin: 05/18/18 09:39 Dose: 1 tab Clonidine HCl (Catapres) 0.1 mg PO Q6H PRN PRN Reason: SBP>160, DBP>90 Last Admin: 05/15/18 16:54 Dose: 0.1 mg Cyclobenzaprine HCl (Flexeril) 10 mg PO Q8H PRN PRN Reason: back spasms Last Admin: 05/17/18 21:07 Dose: 10 mg Enalaprilat (Vasotec Inj) 1.25 mg IV.PUSH Q6H PRN PRN Reason: SEE LABEL COMMENTS Enoxaparin Sodium (Lovenox Inj) 30 mg SQ Q24H [facility] Last Admin: 05/18/18 11:32 Dose: 30 mg Flumazenil (Romazecon Inj) 0.2 mg IV.PUSH Q1M PRN PRN Reason: OVERSEDATION Fluticasone Propionate (Flonase Nasal [place]) 2 spray NASAL DAILY [facility] Last Admin: 05/18/18 09:39 Dose: 2 spray Haloperidol Lactate (Haldol Inj) 1 mg IV.PUSH Q15M PRN PRN Reason: for severe agitation Lactulose (Lactulose Liq) 30 ml PO DAILY PRN PRN Reason: SEVERE CONSITIPATION Lisinopril (Prinivil) 20 mg PO DAILY [facility] Last Admin: 05/18/18 09:39 Dose: 20 mg Lorazepam (Ativan Inj) 1 mg IV.PUSH Q4H PRN PRN Reason: for CIWA 8-10 Lorazepam (Ativan Inj) 2 mg IV.PUSH Q15M PRN PRN Reason: for CIWA > 20 Lorazepam (Ativan Inj) 2 mg IV.PUSH Q1H PRN PRN Reason: for CIWA 15-20 Lorazepam (Ativan Inj) 2 mg IV.PUSH Q2H PRN PRN Reason: for CIWA 11-14 Lorazepam (Ativan) 1 mg PO Q4H PRN PRN Reason: for CIWA 8-10 Last Admin: 05/17/18 11:53 Dose: 1 mg Lorazepam (Ativan) 2 mg PO Q2H PRN PRN Reason: for CIWA 11-14 Last Admin: 05/15/18 23:36 Dose: 2 mg Padimate O (Chapstick) 1 applicatio TOPICAL UNSCH PRN PRN Reason: dry lips Last Admin: 05/17/18 21:07 Dose: 1 applicatio Senna/Docusate Sodium (Jeny-Colace) 1 tab PO BID [facility] Sennosides (Senokot) 17.2 mg PO Q12H PRN PRN Reason: Moderate Constipation Thiamine HCl (Vitamin B1) 100 mg PO DAILY TREVOR Last Admin: 05/18/18 09:39 Dose: 100 mg Tramadol/Acetaminophen (Ultracet 37.5/325 Mg) 1 tab PO Q4H PRN PRN Reason: pain 4-10 Last Admin: 05/18/18 15:22 Dose: 1 tab Zolpidem Tartrate (Ambien) 5 mg PO HS PRN PRN Reason: INSOMNIA Last Admin: 05/17/18 21:08 Dose: 5 mg - Urinary Catheter Management Straight Cath placed during this visit: yes Reason for continuing: Not indwelling catheter Insertion date: 05/15/18 Insertion time: 12:25 Assessment and Plan - Plan 73yoF osteopenic with prior multiple compression fx in thoracic and lumbar, now with an acute L2 and L4 vertebral body compression fractures with intractable low back pain. The other thoracic and lumbar spine fractures appear to be chronic. She wants to proceed with the kyphoplasty and accordingly this will be scheduled for later this week.
[2018-05-18] MEDS: Senna/Docusate Sodium 8.6/50 MG Tablet PO SCH (21:24)
[2018-05-18] MEDS: Zolpidem Tartrate 5 MG Tablet PO PRN (21:24)
[2018-05-19] MEDS: traMADol/Acetaminophen 37.5/325 MG Tablet PO PRN ×4 (04:32→20:25)
[2018-05-19] MEDS: Calcium/Vitamin D 250/125 MG Tablet PO SCH ×2 (08:46→20:27)
[2018-05-19] MEDS: Lisinopril 20 MG Tablet PO SCH (08:46)
[2018-05-19] MEDS: Senna/Docusate Sodium 8.6/50 MG Tablet PO SCH ×2 (08:47→20:27)
[2018-05-19] MEDS: Enoxaparin Inj 30 MG/0.3 ML Syringe SQ SCH (10:16)
--- NOTE | 2018-05-19 10:35 | P.PN ---
Subjective Interval history: Patient doing well overnight. Reports that she is tolerating PO, stooling/ voiding well. Patient reports that her pain is well controlled, she reports that she is ready for surgery. Physical Exam Vital signs: Vital Signs 05/18/18 12:00 05/18/18 16:00 05/18/18 20:00 Temperature 97.3 F L 98.1 F 98.7 F Pulse Rate 110 H 107 H 102 H Respiratory Rate 18 18 18 Blood Pressure 113/72 134/88 116/72 Pulse Oximetry 94 L 93 L 94 L 05/18/18 21:53 05/18/18 23:00 05/19/18 00:00 Temperature Pulse Rate 96 H Respiratory Rate 18 18 18 Blood Pressure 121/91 H Pulse Oximetry 92 L 05/19/18 02:17 05/19/18 04:00 05/19/18 05:02 Temperature Pulse Rate 90 Respiratory Rate 18 18 18 Blood Pressure 131/75 Pulse Oximetry 96 05/19/18 07:34 05/19/18 07:47 05/19/18 09:17 Temperature 97.7 F Pulse Rate 97 H Respiratory Rate 18 19 18 Blood Pressure 132/87 Pulse Oximetry 94 L Intake & Output 05/18/18 05/19/18 05/19/18 18:59 06:59 18:59 Weight 48.5 kg Other: # Voids 3 # Incontinent Voids 3 Date of Last Bowel Movement 05/14/18 05/14/18 05/14/18 Narrative: GENERAL: thin, female, in NAD, lying in bed SKIN: Warm and dry. HEAD: Normocephalic. No scleral icterus. No injection or drainage. MOM. NECK: Supple, trachea midline. No JVD or lymphadenopathy. CARDIOVASCULAR: Regular rate and rhythm without murmurs, gallops, or rubs. RESPIRATORY: Breath sounds equal bilaterally. No accessory muscle use. GASTROINTESTINAL: Abdomen soft, non-tender, nondistended. MUSCULOSKELETAL: No cyanosis, or edema. BACK: Significant kyphosis. No CVA tenderness. NEURO: AAOx3, follows command, motor system intact, no focal deficits - Urinary Catheter Management Straight Cath placed during this visit: yes Reason for continuing: Not indwelling catheter Insertion date: 05/15/18 Insertion time: 12:25 Results - Labs CBC & Chem 7: 05/17/18 03:45 05/16/18 09:57 Microbiology 05/15/18 12:25 Blood - Peripheral Aerobic Blood Culture - Preliminary Staphylococcus coag negative 05/15/18 12:25 Blood - Peripheral Anaerobic Blood Culture - Preliminary No growth in 3 days 05/15/18 12:20 Blood - Peripheral Aerobic Blood Culture - Preliminary No growth in 3 days 05/15/18 12:20 Blood - Peripheral Anaerobic Blood Culture - Preliminary No growth in 3 days - Imaging Impressions Lumbar Spine MRI 05/18/18 00:00 CONCLUSION: 1. Acute to subacute compression fractures involving L2 and L4 as detailed above. No retropulsion. 2. Old compression fractures involving L1 and L3 with approximately 4 mm of retropulsion. 3. Mild narrowing of the central canal at L3 secondary to the retropulsion. Otherwise the central canal and neural foramina are patent throughout. Thoracic Spine MRI 05/18/18 00:00 CONCLUSION: 1. Patent central canal throughout. 2. Multiple old compression fractures without new compression fracture. 3. See the MRI of the lumbar spine reported separately. Assessment and Plan - Assessment (1) Compression fracture of lumbar vertebra Code(s): S32.000A - Wedge compression fracture of unspecified lumbar vertebra, initial encounter for closed fracture Status: Acute - Plan 73 year old female admitted due to acute low back pain found to have lumbar compression fracture managed nonsurgically per neurosurgery, HD#5 1. Trauma, s/p fall with acute low back pain with L1 compression fracture deformity History of chronic back pain, plan for kyphoplasty later this week, to be determined by NeuroSurgery Appreciate assistance with management NPO at midnight in case Continue Ultracet PRN and Flexeril PRN Per NeuroSx Reccs 05/18: Aute L2 and L4 vertebral body compression fractures with intractable low back pain. The other thoracic and lumbar spine fractures appear to be chronic. She wants to proceed with the kyphoplasty and accordingly this will be scheduled for later this week. Thoracic MRI 05/18: Patent central canal throughout. Multiple old compression fractures without new compression fracture. See the MRI of the lumbar spine reported separately. Lumbar MRI 05/18: Acute to subacute compression fractures involving L2 and L4 as detailed above. No retropulsion. Old compression fractures involving L1 and L3 with approximately 4 mm of retropulsion. Mild narrowing of the central canal at L3 secondary to the retropulsion. Otherwise the central canal and neural foramina are patent throughout. 2. HTN, stable Cont. Lisinopril Cont. Clonidine PRN 3. ETOH use No signs of withdrawal, will monitor CIWA protocol Cont. Thiamine/MV 4. Leukocytosis, resolved WBC 9.2 on 05/17 from 14.6 Afebrile, UA Neg, CXR negative, clinically no signs of active infection Bld Cx Neg x3 days (3 bottles), +Coag Neg Staph (contaminant [id number]), cont. to follow x5 days, rpt Bld Cx today 5. Allergic rhinitis Cont. Flonase 6. Hyponatremia Sodium 133 on 05/16, 137 on admission s/p IVF Checking STAT BMP today F/U in AM 7. DVT prophylaxis: Lovenox 8. Dispo: Pending neurosurgery decision on date of surgery, NPO at midnight in case of surgery tomorrow Discussed Condition With: patient, RN (1) Compression fracture of lumbar vertebra Qualifiers: Encounter type: initial encounter Lumbar vertebra fracture level: L1 Fracture type: closed Qualified Code(s): S32.010A - Wedge compression fracture of first lumbar vertebra, initial encounter for closed fracture
[2018-05-19] MEDS: LORazepam 1 MG Tablet PO PRN (15:26)
--- NOTE | 2018-05-19 16:54 | P.PNNS ---
Subjective Interval history: Pt awake and alert. Complains of lumbar spine pain. No radiculopathy in LEs. No paresthesias in LEs. States feet feel tight. Denies any thoracic spine pain. <Julian Abdullahi - Last Filed: 05/19/18 16:47> Physical Exam Vital signs: Vital Signs 05/18/18 20:00 05/18/18 21:53 05/18/18 23:00 Temperature 98.7 F Pulse Rate 102 H Respiratory Rate 18 18 18 Blood Pressure 116/72 Pulse Oximetry 94 L 05/19/18 00:00 05/19/18 02:17 05/19/18 04:00 Temperature Pulse Rate 96 H 90 Respiratory Rate 18 18 18 Blood Pressure 121/91 H 131/75 Pulse Oximetry 92 L 96 05/19/18 05:02 05/19/18 07:34 05/19/18 07:47 Temperature 97.7 F Pulse Rate 97 H Respiratory Rate 18 18 19 Blood Pressure 132/87 Pulse Oximetry 94 L 05/19/18 09:17 05/19/18 12:00 Temperature 97.6 F Pulse Rate 104 H Respiratory Rate 18 20 Blood Pressure 102/73 Pulse Oximetry 96 Intake & Output 05/18/18 05/19/18 05/19/18 18:59 06:59 18:59 Weight 48.5 kg Other: # Voids 3 # Incontinent Voids 3 Date of Last Bowel Movement 05/14/18 05/14/18 05/14/18 - Constitutional no acute distress, thin, cooperative - Routine HEENT Exam Head: Present: normocephalic, atraumatic Eye: Present: PERRL. Absent: conjunctival icterus ENT: Present: oropharynx clear Comments: Poor snf. - Routine Neck Exam Present: trachea midline - Routine Respiratory Exam Present: CTA bilaterally. Absent: rhonchi, wheezes - Routine Cardiovascular Exam Present: RRR, S1, S2. Absent: murmur - Routine Abdominal Exam Present: soft, normoactive bowel sounds. Absent: distended - Routine Skin Exam Absent: cyanosis, erythema - Routine Neurological Exam Present: alert, moving all extremities, normal speech. Absent: sensory deficit , motor deficit, altered mental status - Routine Psychiatric Exam Present: normal affect, cooperative. Absent: anxious - Urinary Catheter Management Straight Cath placed during this visit: yes Reason for continuing: Not indwelling catheter Insertion date: 05/15/18 Insertion time: 12:25 <Julian Abdullahi - Last Filed: 05/19/18 16:47> Vital signs: Vital Signs 05/18/18 20:00 05/18/18 21:53 05/18/18 23:00 Temperature 98.7 F Pulse Rate 102 H Respiratory Rate 18 18 18 Blood Pressure 116/72 Pulse Oximetry 94 L 05/19/18 00:00 05/19/18 02:17 05/19/18 04:00 Temperature Pulse Rate 96 H 90 Respiratory Rate 18 18 18 Blood Pressure 121/91 H 131/75 Pulse Oximetry 92 L 96 05/19/18 05:02 05/19/18 07:34 05/19/18 07:47 Temperature 97.7 F Pulse Rate 97 H Respiratory Rate 18 18 19 Blood Pressure 132/87 Pulse Oximetry 94 L 05/19/18 09:17 05/19/18 12:00 05/19/18 15:56 Temperature 97.6 F Pulse Rate 104 H Respiratory Rate 18 20 18 Blood Pressure 102/73 Pulse Oximetry 96 05/19/18 16:53 Temperature 97.7 F Pulse Rate 105 H Respiratory Rate 20 Blood Pressure 135/78 Pulse Oximetry 94 L Intake & Output 05/18/18 05/19/18 05/19/18 18:59 06:59 18:59 Weight 48.5 kg Other: # Voids 3 # Incontinent Voids 3 Date of Last Bowel Movement 05/14/18 05/14/18 05/14/18 - Urinary Catheter Management Straight Cath placed during this visit: no <Morgan Perry - Last Filed: 05/19/18 17:19> Assessment and Plan - Assessment (1) Compression fracture of lumbar vertebra Code(s): S32.000A - Wedge compression fracture of unspecified lumbar vertebra, initial encounter for closed fracture Status: Acute Qualifiers: Encounter type: initial encounter Lumbar vertebra fracture level: L1 Fracture type: closed Qualified Code(s): S32.010A - Wedge compression fracture of first lumbar vertebra, initial encounter for closed fracture - Plan 73yoF osteopenic with prior multiple compression fx in thoracic and lumbar, now with an acute L2 and L4 vertebral body compression fractures with intractable low back pain. The other thoracic and lumbar spine fractures appear to be chronic. She wants to proceed with the kyphoplasty P: L2 and L4 kyphoplasty tomorrow NPO after midnight Consents in chart. <Julian Abdullahi - Last Filed: 05/19/18 16:47> - Attending Attestation The exam, history, and the medical decision-making described in the above note were completed with the assistance of the mid-level provider. I reviewed and agree with the findings presented. I attest that I had a [id number] encounter with the patient on the same day, and personally performed and documented my assessment and findings in the medical record. <Morgan Perry - Last Filed: 05/19/18 17:19>
[2018-05-19 16:56] LABS: Calcium 8.7 mg/dL (8.5-10.1); Carbon Dioxide 28.3 meq/L (21.0-32.0); Potassium 5.1 meq/L (3.5-5.1)
[2018-05-19] MEDS: Zolpidem Tartrate 5 MG Tablet PO PRN (20:27)
[2018-05-20] MEDS: traMADol/Acetaminophen 37.5/325 MG Tablet PO PRN ×3 (03:56→23:19)
[2018-05-20] MEDS: Sodium Chlor 0.9% Inj 500 ML IV.CONT SCH ×2 (05:05→16:41)
[2018-05-20 05:15] LABS: Baso % (Auto) 0.4 % (0.0-2.0); Eos # (Auto) 0.3 th/mm3 (0.0-0.4); Eos % (Auto) 3.8 % (0.0-4.0); Hematocrit 36.9 % (35.0-46.0); Hemoglobin 12.7 gm/dL (11.6-15.3); Lymph # (Auto) 1.5 th/mm3 (1.0-4.8); Lymph % (Auto) 19.5 % (9.0-44.0); Mean Corpuscular HGB Conc 34.5 % (32.0-36.0); Mean Corpuscular Hemoglobin 32.3 pg (27.0-34.0); Mean Corpuscular Volume 93.6 fL (80.0-100.0); Mean Platelet Volume 7.4 fL (7.0-11.0); Mono # (Auto) 0.7 th/mm3 (0.0-0.9); Mono % (Auto) 8.7 % (0.0-8.0); Neut # (Auto) 5.2 th/mm3 (1.8-7.7); Neut % (Auto) 67.6 % (16.0-70.0); Platelet Count 250 th/mm3 (150-450); Red Blood Count 3.94 mil/mm3 (4.00-5.30); White Blood Count 7.7 th/mm3 (4.0-11.0)
[2018-05-20 05:17] LABS: Alanine Aminotransferase 19 U/L (10-53); Anion Gap 10 meq/L (5-15); Aspartate Aminotransferase 15 U/L (15-37); Blood Urea Nitrogen 21 mg/dL (7-18); Calcium 8.8 mg/dL (8.5-10.1); Chloride 97 meq/L (98-107); Glomerular Filtration Rate Greater Than 89 mL/min (>89); Glucose,Random 75 mg/dL (74-106); Potassium 4.7 meq/L (3.5-5.1); Sodium 137 meq/L (136-145)
[2018-05-20 05:19] LABS: Alkaline Phosphatase 54 U/L (45-117)
[2018-05-20] MEDS ORDERED: Bupivacaine/Epinephrine 0.5% Inj 50 ML Vial ONE (07:01)
[2018-05-20] MEDS: Calcium/Vitamin D 250/125 MG Tablet PO SCH ×3 (08:21→20:08)
[2018-05-20] MEDS: Lisinopril 20 MG Tablet PO SCH (08:21)
[2018-05-20] MEDS: Senna/Docusate Sodium 8.6/50 MG Tablet PO SCH ×3 (08:21→20:09)
--- NOTE | 2018-05-20 09:07 | P.PNIM ---
Subjective Interval history: Still complains of lower back pain. Ready for surgical procedure today. Open to going to rehab after surgery. Physical Exam Vital signs: Vital Signs 05/19/18 09:17 05/19/18 12:00 05/19/18 15:56 Temperature 97.6 F Pulse Rate 104 H Respiratory Rate 18 20 18 Blood Pressure 102/73 Pulse Oximetry 96 05/19/18 16:53 05/19/18 19:54 05/19/18 19:59 Temperature 97.7 F 97.3 F L Pulse Rate 105 H 99 H Respiratory Rate 20 18 18 Blood Pressure 135/78 117/75 Pulse Oximetry 94 L 94 L 05/19/18 20:55 05/19/18 23:40 05/20/18 00:00 Temperature 97.7 F Pulse Rate 87 Respiratory Rate 18 17 16 Blood Pressure 113/62 Pulse Oximetry 94 L 05/20/18 04:00 Temperature 97.9 F Pulse Rate 91 H Respiratory Rate 17 Blood Pressure 113/72 Pulse Oximetry 95 Intake & Output 05/19/18 05/20/18 05/20/18 18:59 06:59 18:59 Intake Total 960 / 960 Balance 960 / 960 Weight 48.5 kg Intake: Oral 960 / 960 Other: # Voids 2 # Incontinent Voids 5 Date of Last Bowel Movement 05/14/18 05/14/18 # Incontinent Bowel Movements 2 Narrative: GENERAL: This is a thin patient, in no apparent distress. CARDIOVASCULAR: Regular rate and rhythm RESPIRATORY: Clear to auscultation. Breath sounds equal bilaterally. No wheezes , rales, or rhonchi. MUSCULOSKELETAL: Extremities without clubbing, cyanosis, or edema, with kyphosis. Bilateral SCDs NEURO: Alert & Oriented x4 to person, place, time, situation. Moves all ext x4 - Urinary Catheter Management Straight Cath placed during this visit: yes Reason for continuing: Not indwelling catheter Insertion date: 05/15/18 Insertion time: 12:25 Results - Labs CBC & Chem 7: 05/20/18 04:07 05/20/18 04:07 Laboratory Results - last 24 hr 05/19/18 05/20/18 05/20/18 15:44 04:07 04:07 WBC 7.7 RBC 3.94 L Hgb 12.7 Hct 36.9 MCV 93.6 MCH 32.3 MCHC 34.5 RDW 16.0 Plt Count 250 MPV 7.4 Neut % (Auto) 67.6 Lymph % (Auto) 19.5 Chase % (Auto) 8.7 H Eos % (Auto) 3.8 Baso % (Auto) 0.4 Neut # (Auto) 5.2 Lymph # (Auto) 1.5 Chase # (Auto) 0.7 Eos # (Auto) 0.3 Baso # (Auto) 0.0 WBC Differential . Differential Comment Auto diff final Sodium 133 L 137 Potassium 5.1 4.7 Chloride 97 L 97 L Carbon Dioxide 28.3 30.0 Anion Gap 8 10 BUN 27 H 21 H Creatinine 0.77 0.64 Estimated GFR 73 L Greater than 89 Random Glucose 94 75 Calcium 8.7 8.8 Total Bilirubin 0.3 AST 15 ALT 19 Alkaline Phosphatase 54 Total Protein 7.0 D Albumin 3.0 L Microbiology 05/15/18 12:25 Blood - Peripheral Aerobic Blood Culture - Final Staphylococcus auricularis 05/15/18 12:25 Blood - Peripheral Anaerobic Blood Culture - Preliminary No growth in 4 days 05/15/18 12:20 Blood - Peripheral Aerobic Blood Culture - Preliminary No growth in 4 days 05/15/18 12:20 Blood - Peripheral Anaerobic Blood Culture - Preliminary No growth in 4 days - Procedures 05/20 kyphoplasty of the L2 L4 Assessment and Plan - Assessment (1) Compression fracture of lumbar vertebra Code(s): S32.000A - Wedge compression fracture of unspecified lumbar vertebra, initial encounter for closed fracture Status: Acute - Plan 73 years old female S/P fall with 1. Acute Low back pain with L2 to L4 compression fracture deformity history of chronic back pain -Appreciate neurosurgery evaluation who recommended nonsurgical treatment with pain control physical therapy and brace. -Continue Ultracet 1 tab po q 4 prn for pain For L2 4 kyphoplasty today. 2. Uncontrolled hypertension -Continue with current lisinopril dose as blood pressures better controlled today. 3. ETOH use-no signs of DTs at this time. -placed on CIWA protocol -Initiate thiamine and folate. 4. Leukoctyosis on labs- may be reactive, this has now trended down. 5. DVT prophylaxisteds, Discharge Planning: Patient will benefit [facility], will also need to await for neurosurgery evaluation for kyphoplasty. (1) Compression fracture of lumbar vertebra Qualifiers: Encounter type: initial encounter Lumbar vertebra fracture level: L1 Fracture type: closed Qualified Code(s): S32.010A - Wedge compression fracture of first lumbar vertebra, initial encounter for closed fracture
[2018-05-20] MEDS ORDERED: RESP: Albuterol Concentrated 2.5 MG/0.5 ML Neb ONE (11:02)
[2018-05-20] MEDS ORDERED: Metoprolol Tartrate 25 MG Tablet PO ONE (13:15)
[2018-05-20] MEDS ORDERED: Chlorhexidine Gluconate 2% 1 Pack (2 Cloths) TOPICAL ONE (13:15)
[2018-05-20] MEDS ORDERED: Sodium Chlor 0.9% Inj 500 ML IV.CONT ONE (13:15)
[2018-05-20] MEDS ORDERED: Lidocaine PF 1% Inj 5 ML Syringe INFILTRATN ONE (13:30)
[2018-05-20] MEDS ORDERED: Succinylcholine Inj 100 MG/5 ML Syringe IV.PUSH ONE (13:30)
[2018-05-20] MEDS ORDERED: Sodium Chlor 0.9% Inj 250 ML IV.CONT ONE (13:30)
[2018-05-20] MEDS ORDERED: Phenylephrine/NS 1000 MCG/10ML Syringe IV.PUSH ONE (13:30)
--- NOTE | 2018-05-20 14:31 | P.OP ---
- Preoperative Diagnosis (1) Compression fracture of lumbar vertebra (2) Compression fracture of L2 lumbar vertebra (3) Compression fracture of L4 lumbar vertebra Date of procedure: 05/20/18 Procedure: Lumbar L2 and L4 kyphoplasty Anesthesia: MISA Surgeon: Morgan Perry MD Estimated blood loss (mL): 5 Operation and Findings: Following administration of a general endotracheal anesthesia patient was placed in the prone position on chest rolls and Parvez table and all pressure points adequate padded. IV antibiotics were administered intravenously and the lumbar area posteriorly prepped with a Betadine solution and painted and draped in the usual sterile fashion. Using AP and lateral arthroscopy guidance the stab incision sites were made at the L2 and L4 levels overlying the pedicles on the left side after infiltrating the skin was 0.5% Marcaine. The Jamshidi needles were then passed into the vertebral body through the pedicles at both levels and the hand-held drill trajectory created. The drills were then removed and then the balloons were passed into the vertebral body through both sides and dilated to create a cavity and restore vertebral body height. Subsequently the balloons were removed and the L2 cavity packed with the bone cement 5 cc total in the L4 cavity packed with a 6 cc cement. The guide was then removed and Steri-Strips applied at the puncture wounds along with a sterile dressing. She was then turned in spine position, extubated and taken to the recovery room. There were no intraoperative medications and all sponge and needle count was correct at the end the procedure. Estimated blood loss less than 5 cc.
[2018-05-20] MEDS ORDERED: fentaNYL Citrate Inj 100 MCG/2 ML Ampul ONE (14:33)
--- NOTE | 2018-05-20 15:13 | XR ---
EXAM DATE: 05/20/2018 12:00 AM EDT AGE/SEX: 73 years / Female INDICATIONS: L2/L4 kyphoplasty. CLINICAL DATA: This is the patient's initial encounter. Patient reports that signs and symptoms have been present for 1 day and indicates a pain score of Nonresponsive. MEDICAL/SURGICAL HISTORY: None. None. [place] [facility] [place] 05/18/2018. . FINDINGS: 2 magnified C-arm spot views are centered over the lumbar spine. Cement augmentation changes are seen involving 2 lumbar vertebral bodies felt to relate to L2 and L4. The cement is contained within the confines the vertebral bodies. CONCLUSION: 2 level cement augmentation. Electronically signed by: Josef Silva MD 05/20/2018 3:11 PM EDT
[2018-05-20] MEDS ORDERED: Vancomycin Inj 1,000 MG in Sodium Chlor 0.9% Inj 250 ML IV.SIG SCH (16:59)
[2018-05-20] MEDS ORDERED: Influenza (Quadrivalent) Vaccine 0.5 ML Syringe IM ONE (21:00)
[2018-05-20] MEDS: Zolpidem Tartrate 5 MG Tablet PO PRN (23:19)
[2018-05-21] MEDS: Lisinopril 20 MG Tablet PO SCH (08:53)
[2018-05-21] MEDS: Senna/Docusate Sodium 8.6/50 MG Tablet PO SCH (08:53)
[2018-05-21] MEDS: Calcium/Vitamin D 250/125 MG Tablet PO SCH (08:53)
[2018-05-21] MEDS: Sodium Chlor 0.9% Inj 500 ML IV.CONT SCH (09:15)
[2018-05-21 09:23] VITALS: RESP 16
--- NOTE | 2018-05-21 10:40 | P.DS ---
Date of admission: 05/15/18 13:57 Primary care physician: Juice Camacho Anticipated date of discharge: 05/21/18 Brief History from admission: patient is a very feisty 73 years old female , right handed history of depression, hypertension, chronic low back pain admits to non compliance with BP meds, states independent with ADLS who last night states she got up too fast from the toilet, got dizzy and fell and "twisted my bacK". she was able to crawl back to bed. This am- unable to get up and got hold of a friend by phone who called EMS and was brought in here for further evaluation. On evaluation noted to have L1 compression fracture baseline states she is independent states that she does have to get up slowly or gradually or else she tend to get dizzy denies any pain unless " I move or turn", no radiculopathy, no sensory deficits Patient update on day of discharge: Patient states her back pain has improved. No other concerns at this time. She is open to going to rehab today. DS: Diagnosis - Discharge Diagnosis (1) Compression fracture of lumbar vertebra Status: Acute Diagnosis: Principal (2) Hypertension Status: Chronic Diagnosis: Secondary DS: Medications - Discharge Medications Prescriptions: tramadol-acetaminophen 1 tab PO Q4H PRN #18 tab PRN Reason: Acute Pain DS: Summary Hospital Course: These are the medical issues addressed during this hospitalization: 73 years old female S/P fall with 1. Acute Low back pain with L2 to L4 compression fracture deformity history of chronic back pain -Appreciate neurosurgery evaluation who recommended nonsurgical treatment with pain control physical therapy and brace. -Continue Ultracet 1 tab po q 4 prn for pain Status post L2 4 kyphoplasty 05/[address] Webster pain control 2. Uncontrolled hypertension -Continue with current lisinopril dose as blood pressures better controlled during the hospitalization 3. ETOH use-no signs of DTs at this time. -placed on CIWA protocol -Initiate thiamine and folate. 4. Leukoctyosis on labs- may be reactive, this has now trended down. 5. DVT prophylaxisteds, Patient has gained maximum benefit from hospitalization is ready to be transitioned to [facility]dc facility. I have reviewed patient's prescription history through the [place] prescription drug monitoring program [employer] prior to prescribing any controlled substance. [place] Prescription Drug Monitoring Database has been queried and verified prior to prescribing the controlled subsection. Patient is having significant pain caused by lumbar fracture which will last more than 3 days. Trial of alternative treatment options other than prescribed opioids has not helped. I believe that it is medically necessary to treat the patients pain because it is affecting patients ability to ambulate. - Time Spent with Patient Total time spent providing and/or coordinating discharge services: Less than 30 minutes - Quality: VTE Deep Vein Thrombosis/Pulmonary Embolism Present on Admission: No Exam Vital signs: Vital Signs 05/20/18 14:39 05/20/18 14:40 05/20/18 14:45 Temperature 97.0 F L Pulse Rate 100 H 106 H Respiratory Rate 12 14 Blood Pressure 145/86 H 138/91 H Pulse Oximetry 100 100 95 05/20/18 15:00 05/20/18 15:10 05/20/18 16:00 Temperature 97.6 F 97.6 F Pulse Rate 101 H 98 H 100 H Respiratory Rate 16 16 16 Blood Pressure 143/87 H 140/88 119/75 Pulse Oximetry 94 L 95 94 L 05/20/18 20:00 05/20/18 20:06 05/20/18 23:49 Temperature 98.6 F Pulse Rate 126 H Respiratory Rate 18 18 18 Blood Pressure 118/68 Pulse Oximetry 94 L 05/21/18 00:00 05/21/18 04:00 05/21/18 08:00 Temperature 97.8 F 98.2 F 97.9 F Pulse Rate 83 86 85 Respiratory Rate 18 18 16 Blood Pressure 123/73 114/59 L 105/61 Pulse Oximetry 94 L 93 L 90 L Intake & Output 05/20/18 05/21/18 05/21/18 18:59 06:59 18:59 Intake Total 1000 / 1000 500 / 500 Output Total 25 / 25 Balance 975 / 975 500 / 500 Intake: IV 500 / 500 NS Inj 500 ML @ 30 mls/hr IV. 500 / 500 CONT .[id number] [facility] Rx#:[id number] Anesthesia Amount 1000 / 1000 Output: Estimated Blood Loss Other: # Incontinent Voids 5 Date of Last Bowel Movement 05/20/18 05/20/18 05/21/18 # Incontinent Bowel Movements 1 Narrative: GENERAL: This is a thin patient, in no apparent distress. CARDIOVASCULAR: Regular rate and rhythm RESPIRATORY: Clear to auscultation. Breath sounds equal bilaterally. No wheezes , rales, or rhonchi. MUSCULOSKELETAL: Extremities without clubbing, cyanosis, or edema, with kyphosis. Bilateral SCDs NEURO: Alert & Oriented x4 to person, place, time, situation. Moves all ext x4 Results Procedures completed during hospitalization: 05/20 kyphoplasty of the L2 L4 Labs on day of discharge: Preliminary micro results at discharge 05/19/18 12:12 Aerobic Blood Culture - Preliminary Blood - Peripheral No growth in 1 day Anaerobic Blood Culture - Preliminary No growth in 1 day 05/19/18 12:05 Aerobic Blood Culture - Preliminary Blood - Peripheral No growth in 1 day Anaerobic Blood Culture - Preliminary No growth in 1 day - Impressions ITS Impressions Chest X-Ray 05/15/18 11:52 CONCLUSION: Hyperinflated lungs. Chest CT 05/15/18 13:18 CONCLUSION: 1. The lung [place] are hyperaerated. No focal or acute intrathoracic disease is demonstrated. There is some minimal atelectasis versus scarring in the right lung base. 2. Osteopenia and degenerative changes are seen throughout the bony structures. There are several old appearing wedge compression injuries involving the thoracic spine including T4, T5, T7 and T8. Cervical Spine CT 05/16/18 00:00 CONCLUSION: 1. Scattered degenerative changes. 2. No fracture or subluxation. Head CT 05/16/18 00:00 CONCLUSION: 1. No acute intracranial abnormality. 2. Chronic ischemic small vessel vasculopathy. . Lumbar Spine CT 05/16/18 00:00 CONCLUSION: 1. Multilevel old compression deformities including L1, L3 and L4 vertebral bodies. 2. Mild canal stenosis at L3 secondary to retropulsion of posterior fragments. 3. No acute fracture. Thoracic Spine CT 05/16/18 00:00 CONCLUSION: 1. Multiple old compression deformities. 2. Kyphosis and diffuse degenerative changes. Wrist X-Ray 05/16/18 05:12 CONCLUSION: 1. No acute fracture is identified. The bones are under mineralized. 2. Changes suggesting old fractures of the distal radius and ulnar styloid. There is ulnar positive variance. Lumbar Spine MRI 05/18/18 00:00 CONCLUSION: 1. Acute to subacute compression fractures involving L2 and L4 as detailed above. No retropulsion. 2. Old compression fractures involving L1 and L3 with approximately 4 mm of retropulsion. 3. Mild narrowing of the central canal at L3 secondary to the retropulsion. Otherwise the central canal and neural foramina are patent throughout. Thoracic Spine MRI 05/18/18 00:00 CONCLUSION: 1. Patent central canal throughout. 2. Multiple old compression fractures without new compression fracture. 3. See the MRI of the lumbar spine reported separately. Lumbar Spine X-Ray 05/20/18 00:00 CONCLUSION: 2 level cement augmentation. Discharge Plan - Discharge Disposition Patient Disposition: Discharge to SNF - Discharge Condition Condition: Good - Discharge Order Discharge Orders: Discharge Order (Routine); Ordered 05/21/18 Ordered By: Herlinda Chapman Neurosurgery Clear for Discharge (Routine); Ordered 05/21/18 Ordered By: Morgan Perry - Physicians Team Primary Care Provider: Juice Camacho Attending Provider: Herlinda Chapman Other Providers: Fredy Hart MD ; Morgan Perry MD ; [facility] ; [facility] [place]
[2018-05-21] MEDS: traMADol/Acetaminophen 37.5/325 MG Tablet PO PRN (12:57)
[2018-05-21 13:27] VITALS: BP 126/73; PULSE 82; TEMP 97.7; O2SAT 93
== END 2018-05-21 13:03 ==
LOC: NEPC 11:18 → NEDA 13:57 → N06 17:39
PROVIDERS: ADMIT Family Medicine; ATTEND Family Medicine